=== PATIENT | female | born 1970 | race Caucasian/White ===

== ENCOUNTER 2017-10-10 05:22 | Day surgery (SDC) | payer OTHER ==
[2017-09-27 15:58] VITALS: BMI 42.0
[2017-10-01 09:05] VITALS: Ht 172.7 cm; Wt 123.7 kg
--- NOTE | 2017-10-01 09:17 | PAT Medication Instructions ---
Service Date Oct 01, 2017. Current Home Medication List Albuterol Hfa (Ventolin Hfa), 2 PUFFS INH Q6H Cyclobenzaprine Hcl (Flexeril), 10 MG PO TID PRN for PRN Fexofenadine Hcl (Ximena Allergy), 1 TAB PO QAM Levofloxacin (Levaquin), 500 MG PO QAM Montelukast Sodium (Singulair), 10 MG PO HS Spironolactone (Aldactone), 25 MG PO QPM Medication Instructions For Your Scheduled Surgery - Hold the following medications the morning of surgery: Cyclobenzaprine Hcl (Flexeril), 10 MG PO TID PRN for PRN Fexofenadine Hcl (Ximena Allergy), 1 TAB PO QAM - Take the following medications the morning of surgery with a sip of water: Albuterol Hfa (Ventolin Hfa), 2 PUFFS INH Q6H (if needed) - Take the following medications as scheduled the night before surgery: Albuterol Hfa (Ventolin Hfa), 2 PUFFS INH Q6H (if needed) Cyclobenzaprine Hcl (Flexeril), 10 MG PO TID PRN for PRN (if needed) Montelukast Sodium (Singulair), 10 MG PO HS Spironolactone (Aldactone), 25 MG PO QPM If you have any questions please call us at [phone] or [phone] or [phone]
[2017-10-01 10:58] LABS: BASO % 0.6 %; BASO ABS # 0.07 K/uL (0-0.2); EOS % 4.2 %; EOS ABS # 0.52 K/uL (0-0.5); HEMATOCRIT 42.5 % (37-47); HEMOGLOBIN 14.7 g/dL (12.0-16.0); IG# 0.12 K/uL (0.00-0.02); LYMPH % 35.1 %; LYMPH ABS # 4.32 K/uL (1.2-3.4); MEAN CELL VOLUME 89.5 fL (80-100); MEAN CORPUSCULAR HEMOGLOBIN 30.9 pg (25-34); MEAN CORPUSCULAR HGB CONC 34.6 g/dl (32-36); MEAN PLATELET VOLUME 9.6 fL (7.4-10.4); MONO % 7.6 %; MONO ABS # 0.94 K/uL (0.11-0.59); NEUT % 51.5 %; NEUT ABS # 6.34 K/uL (1.4-6.5); PLATELET COUNT 262 K/uL (130-400); RED CELL DISTRIBUTION WIDTH CV 12.9 % (11.5-14.5); RED CELL DISTRIBUTION WIDTH SD 41.8 fL (36.4-46.3); WHITE BLOOD COUNT 12.31 K/uL (4.8-10.8)
[2017-10-01 11:08] LABS: PTT PATIENT 25.5 SECONDS (21.0-31.0)
[2017-10-01 11:12] LABS: CALCIUM 9.4 mg/dl (8.5-10.1); CREATININE 0.82 mg/dl (0.60-1.20); POTASSIUM 4.1 mmol/L (3.5-5.1)
[2017-10-10] VITALS (8 sets, daily range): BP systolic 88–148; BP diastolic 57–83; PULSE 90–109; TEMP 36.4–37; O2SAT 92–98
[~2017-10-10] VITALS: Ht 172.7 cm; Wt 123.7 kg
[~2017-10-10 05:22] MED LIST: CYCL10TA6 PO; FEXO1TAB49 PO; LEVO1TAB33 PO; MONT1TAB3 PO; SPIR25TA PO; VNTHFA/IN INH
[2017-10-10] MEDS ORDERED: ENOXAPARIN 40 MG/0.4 ML SYR SQ SCH (06:00)
[2017-10-10] MEDS ORDERED: LACTATED RINGER'S 1000ML 1,000 ML IV SCH (06:00)
[2017-10-10] MEDS ORDERED: CEFAZOLIN 3000MG IV PUSH 22.5 ML IV SCH (06:00)
[2017-10-10] MEDS ORDERED: SCOPOLAMINE 1.5 MG TDSY TD ONE (06:20)
[2017-10-10] MEDS ORDERED: LIDOCAINE HCL 2% 2 ML VIAL (20MG/ML) ONE (06:28)
[2017-10-10] MEDS ORDERED: MIDAZOLAM HCL 1 MG/ML 2ML VIAL ONE (06:28)
[2017-10-10] MEDS ORDERED: PROPOFOL IV EMULSION 10 MG/ML 20 ML VIAL ONE (06:28)
[2017-10-10] MEDS ORDERED: FENTANYL CITRATE INJ 50 MCG/1 ML 2 ML VIAL ONE (06:29)
[2017-10-10] MEDS ORDERED: ONDANSETRON INJ 2 MG/ML 2 ML VIAL IV PRN ×2 (06:30→09:45)
[2017-10-10] MEDS ORDERED: EpHEDrine SULFATE INJ 50 MG/ML AMP IV PRN (06:30)
[2017-10-10] MEDS ORDERED: HYDROmorphone INJ 1 MG/ML SYR IV PRN (06:30)
[2017-10-10] MEDS ORDERED: FENTANYL CITRATE INJ 50 MCG/1 ML 2 ML VIAL IV PRN (06:30)
[2017-10-10] MEDS ORDERED: ATROPINE SULFATE 0.1 MG/ML 5ML SYR IV PRN (06:30)
[2017-10-10] MEDS ORDERED: SCOPOLAMINE 1.5 MG TDSY TD SCH (06:30)
[2017-10-10] MEDS ORDERED: ACETAMINOPHEN 1000 MG/100 ML IV IV ONE (06:40)
--- NOTE | 2017-10-10 07:03 | History & Physical Bridge Note ---
H&P Re-Evaluation Bridge Note: I have examined the patient, reviewed the History & Physical and in the interval since the performance of the History & Physical I have noted the following changes of clinical significance: No changes noted
[2017-10-10] MEDS ORDERED: CEFAZOLIN SOD 1 GM VIAL ONE (07:08)
[2017-10-10] MEDS ORDERED: BACITRACIN 50000 UNIT VIAL ONE (07:08)
[2017-10-10] MEDS ORDERED: BUPIVACAINE 0.25% 30 ML VIAL ONE (07:08)
[2017-10-10] MEDS ORDERED: GENTAMICIN SULFATE 40 MG/ML 2 ML VIAL ONE (07:08)
[2017-10-10] MEDS ORDERED: LIDOCAINE/EPINEPHRINE 1% 20 ML VIAL ONE (07:08)
[2017-10-10] MEDS ORDERED: SUCCINYLCHOLINE CHLORIDE 20 MG/ML 10 ML VIAL IV ONE (08:08)
[2017-10-10] MEDS ORDERED: HYDROmorphone INJ 2 MG/ML SYR/VIAL ONE (08:09)
[2017-10-10] MEDS: CHECK SCOPOLAMINE PATCH PLACEMENT SCH ×3 (08:13→23:54)
[2017-10-10] MEDS ORDERED: NEOSTIGMINE METHYLSULFATE 5 MG/5 ML SYR ONE (08:36)
[2017-10-10] MEDS ORDERED: GLYCOPYRROLATE INJ 0.2 MG/ML VIAL ONE (08:36)
[2017-10-10] MEDS: LACTATED RINGER'S 1000ML 1,000 ML IV SCH ×2 (09:36→21:33)
[2017-10-10] MEDS ORDERED: DiphenhydrAMINE HCL 50 MG/ML VIAL IV PRN (09:45)
[2017-10-10] MEDS ORDERED: PROMETHAZINE HCL INJ 12.5 MG in SODIUM CHLORIDE 0.9% 50ML 50 ML IV PRN (09:45)
[2017-10-10] MEDS ORDERED: MoRPHine SULFATE 4 MG/ML 1 ML CARP\\VIAL IV PRN (09:45)
[2017-10-10] MEDS ORDERED: OXAZEPAM 10MG CAP PO PRN (09:45)
[2017-10-10] MEDS ORDERED: CYCLOBENZAPRINE HCL 10 MG TAB PO PRN (09:45)
[2017-10-10] MEDS ORDERED: ACETAMINOPHEN 325 MG TAB PO PRN (09:45)
[2017-10-10] MEDS ORDERED: OXYCODONE/ACETAMINOPHEN 5-325 TAB PO PRN ×2 (09:45)
[2017-10-10] MEDS ORDERED: MoRPHine SULFATE 2 MG/ML CARP IV PRN (09:45)
[2017-10-10] MEDS ORDERED: ROCURONIUM BROMIDE 10 MG/ML 5 ML VIAL ONE (10:25)
[2017-10-10] MEDS ORDERED: ONDANSETRON INJ 2 MG/ML 2 ML VIAL ONE (10:25)
--- NOTE | 2017-10-10 12:08 | Anesthesiology Progress Note ---
Anesthesia Post Op Note Date & Time Oct 10, 2017 at 12:08 Vital Signs Pain Intensity: 0 Vital Signs Past 12 Hours Date Time Temp Pulse Resp B/P (MAP) Pulse Ox O2 Delivery O2 Flow Rate FiO2 10/10/17 05:37 37 94 18 148/76 (100) 96 Room Air Notes Mental Status: alert / awake / arousable, participated in evaluation Pt Amnestic to Procedure: Yes Nausea / Vomiting: adequately controlled Pain: adequately controlled Airway Patency, RR, SpO2: stable & adequate BP & HR: stable & adequate Hydration State: stable & adequate Anesthetic Complications: no major complications apparent
--- NOTE | 2017-10-10 12:42 | Discharge Instructions ---
Discharge Instructions Date of Service Oct 10, 2017. Admission Reason for Admission: N62 Symptomatic Macromastia Discharge Discharge Diagnosis / Problem: macromastia Discharge Goals Goal(s): Decrease discomfort, Improve function Activity Recommendations Activity Limitations: per Instructions/Follow-up section ACTIVITY RECOMMENDATIONS: __Normal activities _x_No bending, lifting or straining __No driving __Driving allowed when you are off pain medications __Walking permitted __You should have help at home for ___ days DRESSINGS: __No dressings required _x_Keep dressings dry/in place until first office visit __Remove dressings ___ and leave dressings off __Apply ice ___ days __Remove dressings and reapply garment __Apply antibiotic ointment (Bacitracin, Neosporin, etc) to wounds 3-4 times/ day for 10 days BATHING: _x_Keep dressings dry __Sponge bathing permitted __Showering permitted _x_No swimming, hot tubs or soaking in a tub MEDICATIONS: Resume previous medications unless instructed otherwise by your surgeon. _x_Do not use aspirin, Motrin, Advil or Ibuprofen as these may promote bleeding. Please use Tylenol. _x_Prescription(s) provided: pain medication was provided at your last office visit OTHER INSTRUCTIONS: __Record drain output 2-3 times per day SPECIAL CARE INSTRUCTIONS: * It is normal to have a mild fever after surgery. If your temperature is higher than 101.5 degrees F, please call the office at [phone]. * Constipation is a typical side effect of pain medication. An over-the- counter stool softener will help relieve this. * Leaking around surgical drains may occur and should not cause concern. Sometimes these drains become clogged. If this happens, remove the bulb and milk the clot out of the tube, then replace the bulb. * Drainage from wounds after liposuction is normal and should be expected. Garments will become soiled. You should protect furniture and bedding. This drainage should mostly subside within 2-3 days. Leave garments in place unless instructed to remove them. * If you have unusual drainage from a wound or are concerned you have an infection or have any questions or concerns, please call the office at [phone]. FOLLOW UP VISIT: If not already scheduled, please call the office, , when you return home after surgery to schedule an appointment to be seen in __4-6_ days. . Current Hospital Diet Patient's current hospital diet: Regular Diet Discharge Diet Recommended Diet: Regular Diet Procedures Procedures Performed: Bilateral Reduction Mammoplasty With Free Nipple Graft Pending Studies Studies pending at discharge: yes List of pending studies: pathology Medical Emergencies . Who to Call and When: Medical Emergencies: If at any time you feel your situation is an emergency, please call 911 immediately. . Non-Emergent Contact Non-Emergency issues call your: Primary Care Provider, Surgeon . "Provider Documentation" section prepared by Sindy Burch. . [place] Drug Monitoring Program Search Results: no issues identified
[2017-10-10] MEDS ORDERED: IV FLUIDS COMPLETED PRN (13:45)
[2017-10-10] MEDS: CEFAZOLIN IV 2,000 MG in SYRINGE 0 ML IV SCH ×2 (13:52→21:33)
[2017-10-10] MEDS: MoRPHine SULFATE 4 MG/ML 1 ML CARP\\VIAL IV PRN ×3 (13:52→21:36)
--- NOTE | 2017-10-10 14:43 | OPERATIVE REPORT ---
DATE OF OPERATION: 10/10/2017 PREOPERATIVE DIAGNOSIS: Symptomatic macromastia. POSTOPERATIVE DIAGNOSIS: Symptomatic macromastia. PROCEDURE: Bilateral reduction mammoplasty with free nipple graft. SURGEON: Dr. Laura Murillo. SENIOR NETWORK SECURITY ARCHITECT: Sindy Burch PA-C. ANESTHESIA: General. COMPLICATIONS: None. INDICATION FOR THE PROCEDURE: The patient is a 47-year-old female who presented to my office with complaints of back, neck and shoulder pain related to large breasts. We discussed options for breast reduction and based on her size and measurements we discussed performing this as a free nipple graft. BRIEF DESCRIPTION OF THE PROCEDURE: Risks, benefits, and alternatives were explained to the patient who agreed and signed consent. She was identified and marked in the preoperative holding area. She was brought to the operating room where she was positioned supine and placed under anesthesia without incident. Surgical site markings were again reassessed. I began with the left breast. 1% lidocaine with epinephrine was used to anesthetize the planned incisions as well as the nipple-areolar complex. A breast tourniquet was applied using a Olga clamp and lap sponge. A 42 mm cookie cutter was used to circumscribe the nipple-areolar complex. The nipple-areolar complex was then removed as a full thickness graft and placed on the back table in a saline soaked sponge. At this point, the tourniquet was released and the inframammary fold incision was made using a 15 blade scalpel. Electrocautery was used to deepen the incision through subcutaneous fat and breast parenchyma down to chest wall. Care was taken to perform this in beveled fashion ligating vessels as needed and achieving hemostasis with electrocautery. Once the breast was mostly undermined superior incision was made to the inferior aspect of the keyhole incision. This was performed using a 15 blade scalpel. Incision was then deepened using electrocautery again full thickness through the breast. A similar incision was made laterally. Centrally, the skin was incised using electrocautery and additional breast parenchyma was resected again in bevelled fashion in order to retain some projection of the breast. Tissue was passed off for weighing. Additional resection was performed until we achieved the desired size and the wound was able to be closed with minimal tension. Total resection weight on the left was 1276 grams. Hemostasis was achieved with electrocautery. 0.25% Marcaine plain was used to anesthetize the incisions as well as pectoralis fascia. A 15 Hungarian Hermann drain was brought out through a separate stab incision laterally toward the axilla. Keyhole was incised using 15 blade scalpel and de-epithelized. The T-junction was brought together using 2-0 Vicryl suture. Closure was first begun lateral to medial using 2-0 Vicryl deep dermal sutures and then medial to lateral using 2-0 Vicryl deep dermal sutures. Vertical limb was closed using a combination of 2-0 Vicryl deep dermal sutures and 3-0 PDS interrupted dermal sutures. Inframammary fold was then closed using 2-0 PDO deep dermal running Quill suture. The vertical limb was then closed using 3-0 Monocryl running subcuticular suture. The nipple-areolar complex was inspected and thinned using a curved iris scissor. It was placed in the recipient bed and sutured into place using 4-0 silk tie over bolster sutures and 4-0 chromic interrupted sutures. Similar procedure was undertaken on the right side. Total resection weight was 1178 grams on the right. There was reasonable symmetry between the breasts at the close of the case. No complications. Dermabond Prineo was applied to the incisions. Dry dressing followed by a surgical bra was placed. Patient was awakened and transferred to the recovery room in satisfactory condition. Sindy Burch PA-C was present and scrubbed throughout the entire procedure and was instrumental in providing retraction, preparing the nipple graft and assisting in simultaneous wound closure. I attest to the content of the Intraoperative Record and any orders documented therein. Any exception s are noted below.
[2017-10-10] MEDS: ALBUTEROL HFA 8 GM INHALER INH SCH ×2 (17:33→23:51)
[2017-10-10] MEDS ORDERED: MONTELUKAST SOD 10 MG TAB PO SCH (21:00)
[2017-10-10] MEDS ORDERED: SPIRONOLACTONE 25 MG TAB PO SCH (21:00)
[2017-10-11 03:05] VITALS: BP 125/86; PULSE 111; TEMP 36.6; O2SAT 96
[2017-10-11] MEDS: ALBUTEROL HFA 8 GM INHALER INH SCH (05:01)
[2017-10-11 07:53] VITALS: BP 112/75; PULSE 112; TEMP 36.9; O2SAT 92
[2017-10-11 07:57] VITALS: O2SAT 92
--- NOTE | 2017-10-11 07:59 | Surgery Progress Note ---
Surgery Progress Note Date of Service Oct 11, 2017. Subjective Post OP Day: 1 + feeling well, + pain controlled, No complaints Objective Vital Signs: Date Time Temp Pulse Resp B/P (MAP) Pulse Ox O2 Delivery O2 Flow Rate FiO2 10/11/17 07:53 36.9 112 24 112/75 (87) 92 Room Air 10/11/17 03:05 36.6 111 16 125/86 (99) 96 Room Air 10/10/17 23:50 Room Air 10/10/17 23:03 36.5 109 20 118/70 (86) 94 Room Air 10/10/17 19:30 36.8 100 18 117/75 (89) 92 Room Air 10/10/17 16:30 Room Air 10/10/17 15:12 36.5 90 18 88/57 (67) 97 Room Air 10/10/17 14:32 36.4 105 16 114/76 (89) 98 2.0 10/10/17 13:15 107 16 124/82 (96) 97 2.0 10/10/17 12:45 96 16 127/83 (98) 96 2.0 10/10/17 12:15 94 Nasal Cannula 2.0 10/10/17 12:15 96 Nasal Cannula 2.0 10/10/17 12:15 36.8 98 16 141/82 (101) 94 Nasal Cannula 2.0 Physical Exam: Hermann drainage (bloody and serousn, 10cc last shift) General Appearance: WD/WN, no apparent distress Incision(s): clean, dry, intact, no erythema Assessment & Plan s/p bilateral breast reduction with free nipple grafts 1. POD #1. Doing well. Drains removed. D/C home
[2017-10-11] MEDS: CHECK SCOPOLAMINE PATCH PLACEMENT SCH (08:00)
[2017-10-11] MEDS ORDERED: ENOXAPARIN 40 MG/0.4 ML SYR SQ SCH (09:00)
[2017-10-11] MEDS ORDERED: FEXOFENADINE HCL 180 MG TAB PO SCH (09:00)
[2017-10-11] MEDS ORDERED: MULTIVITAMIN TAB PO SCH (09:00)
[2017-10-11 09:14] VITALS: BP 112/75; PULSE 112; TEMP 36.9; O2SAT 92
--- NOTE | 2017-10-11 09:41 | Anesthesiology Progress Note ---
Anesthesia Post Op Note Date & Time Oct 11, 2017 at 09:40 Vital Signs Vital Signs Past 12 Hours Date Time Temp Pulse Resp B/P (MAP) Pulse Ox O2 Delivery O2 Flow Rate FiO2 10/11/17 09:14 36.9 112 24 92 Room Air 10/11/17 07:57 92 Room Air 10/11/17 07:53 36.9 112 24 112/75 (87) 92 Room Air 10/11/17 07:30 Room Air 10/11/17 03:05 36.6 111 16 125/86 (99) 96 Room Air 10/10/17 23:50 Room Air 10/10/17 23:03 36.5 109 20 118/70 (86) 94 Room Air Notes Mental Status: alert / awake / arousable, participated in evaluation Pt Amnestic to Procedure: Yes Nausea / Vomiting: adequately controlled Pain: adequately controlled Airway Patency, RR, SpO2: stable & adequate BP & HR: stable & adequate Hydration State: stable & adequate Anesthetic Complications: no major complications apparent
--- NOTE | 2017-10-11 16:27 | Discharge Summary ---
Discharge Summary Date of Service Oct 11, 2017. Admission Date/Reason Oct 10, 2017 at 09:40 N62 Symptomatic Macromastia. Discharge Date/Disposition Oct 11, 2017 Home Diagnosis Principal Diagnosis: macromastia Procedure(s) Performed bilateral breast reduction with free nipple graft Medication Reconciliation Continued Medications: Albuterol Hfa (Ventolin Hfa) 200 Puffs/33599 Mcg Aers 2 PUFFS INH Q6H, #1 INHALER Cyclobenzaprine Hcl (Flexeril) 10 Mg Tab 10 MG PO TID PRN for PRN, #21 TAB Fexofenadine Hcl (Ximena Allergy) 180 Mg Tab 1 TAB PO QAM for 14 Days, #14 TAB 2 Refills Montelukast Sodium (Singulair) 10 Mg Tab 10 MG PO HS, TAB Spironolactone (Aldactone) 25 Mg Tab 25 MG PO QPM, TAB Admission Physical Exam As per Admitting History & Physical. Hospital Course Patient presented to [facility] with history of symptomatic macromastia. She was taken to the OR and underwent bilateral breast reduction with free nipple graft. There were no intraoperative complications. She was taken to recovery and transferred to med/surg for observation. On POD#1 she was tolerating a regular diet. She had good pain control. Her drains were removed. Bolster dressings intact. VSS. She was discharged home in a stable condition. She was instructed to follow-up in the office in one day. Discharge Instructions Please refer to the electronic Patient Visit Report (Discharge Instructions) for additional information.
== END 2017-10-11 11:25 | disposition home or self-care (01) ==
LOC: C.ACU 05:22 → C.MSW 09:40
PROVIDERS: ADMIT Plastic Surgery; ATTEND Plastic Surgery
DX: N62 Hypertrophy of breast (principal); M19.90 Unspecified osteoarthritis, unspecified site; E66.01 Morbid (severe) obesity due to excess calories; Z84.1 Family history of disorders of kidney and ureter; Z83.3 Family history of diabetes mellitus; Z82.49 Family history of ischemic heart disease and other diseases of the circulatory system; Z80.0 Family history of malignant neoplasm of digestive organs; Z87.891 Personal history of nicotine dependence; Z79.899 Other long term (current) drug therapy

== ENCOUNTER 2019-03-21 05:32 | Observation (INO) ==
--- NOTE | 2019-03-06 13:29 | PAT Medication Instructions ---
Medication Instructions Date of Service March 06, 2019 Home Medications albuterol sulfate 1 inh INHALATION QID PRN fexofenadine 60 mg PO QAM PRN metformin 500 mg PO BID montelukast 10 mg PO PM spironolactone 25 mg PO DO NOT take the morning of surgery fexofenadine 60 mg PO QAM PRN metformin 500 mg PO BID spironolactone 25 mg PO Take morning of surgery With a small sip of water, OTHERWISE NOTHING TO EAT OR DRINK AFTER MIDNIGHT: albuterol sulfate 1 inh INHALATION QID PRN (use if needed; please bring with you to hospital day of surgery if possible) Take evening before surgery albuterol sulfate 1 inh INHALATION QID PRN (if needed) fexofenadine 60 mg PO QAM PRN (if needed) metformin 500 mg PO BID montelukast 10 mg PO PM Other Notes If you have any questions please call us at [phone] or [phone] or [phone] or [phone]
--- NOTE | 2019-03-13 14:16 | Anesthesiology Consultation ---
Date of Service March 13, 2019 Assessment & Plan (1) Encounter for pre-operative examination: - Awaiting review of preop testing (labs, EKG, CXR). - Check BSG AM DOS Chart Review Chart Review: Patient seen in Pre Admission Testing Teaching & Discussion Pre-Anesthesia Teaching/Discussion Notes: Instructed NPO after midnight before surgery,except medications with 15 cc of water. Medication instructions provided according to the PAT guidelines. History Surgery Operation Date: 03/21/19 13:50 Proposed Procedures p Tonsillectomy Adenoidectomy, Uvulopalatoplasty, - Maya Blanco MD s Somnoplasty Tongue Base - Maya Blanco MD Height/Weight Height: 5 ft 9 in Weight: 122.2 kg Allergies Allergy/AdvReac Type Severity Reaction Status Date / Time adhesive Allergy Unknown Irritation Verified 03/13/19 14:15 with tape doxycycline AdvReac Unknown dizziness, Verified 03/13/19 14:15 blurred vision Sulfa (Sulfonamide AdvReac Unknown dizziness, Verified 03/13/19 14:15 Antibiotics) blurred vision Medications Home Medications Medication Instructions Recorded Confirmed Last Taken albuterol sulfate 1 inh INHALATION QID PRN 03/06/19 03/06/19 Unknown fexofenadine 60 mg PO QAM PRN 03/06/19 03/06/19 Unknown metformin 500 mg PO BID 03/06/19 03/06/19 Unknown montelukast 10 mg PO PM 03/06/19 03/06/19 Unknown spironolactone 25 mg PO 03/06/19 Unknown Past Medical History Medical History History of bronchitis remote hx/inhaler PRN (no recent inhaler use) Hx of diarrhea controlled with sacral nerve implant (patient states she will bring remote AM DOS/OR made aware) Obesity Pre-diabetes on Metformin Seasonal allergies Sleep apnea CPAP Exercise / Class Metabolic Activity II 4-5 Yardwork/Stairs/Walk up hill Past Surgical History Surgical History History of partial hysterectomy History of surgery SACRAL NERVE IMPLANT Hx of bilateral breast reduction surgery Hx of colonoscopy with polypectomy Past Anesthesia History No Hx of Anesthesia Complications (except PONV x 1 episode) and No Family Hx of Anesthesia Complications History of PONV No Hx of Motion Sickness and History of PONV (x1 episode) Social History Smoking Status: Current every day smoker tobacco type: cigarettes Smoking cigarettes per day: 20 (tobacco use x 30 years)- attempting to decrease prior to upcoming sx Do You Dip or Chew Tobacco: No Hx Alcohol Use: No Hx Substance Use: No Review of Systems Chronic, non-productive cough ("smoker's cough" per patient). Patient denies chest pain, shortness of breath, cough, wheezing, palpitations. Physical Exam Vital Signs VITALS BP 105/71 P 86 TEMP 98.7 SP02 96%RA RESP 18 PHYSICAL Full neck and c-spine range of motion. Full TMJ range of motion. TMD 3.5 finger breaths Mallampati Score 2 (+ large tonsils) Dentition: intact Lungs: clear throughout to auscultation Cardiac: regular rate and rhythm, no murmurs noted Spine: normal Carotid arteries: negative bruit Extremities: no edema Thick neck
[2019-03-13 15:42] LABS: Hematocrit (blood only) 42.9 % (37-47); Hemoglobin 14.5 g/dL (12.0-16.0); Mean Corpuscular Hemoglobin 30.6 pg (25-34); Mean Corpuscular Hgb Conc 33.8 g/dL (32-36); Mean Corpuscular Volume 90.5 fL (80-100); Platelet Count 310 K/uL (130-400); RDW Coefficient of Variation 13.4 % (11.5-14.5); RDW Standard Deviation 44.3 fL (36.4-46.3); Red Blood Count 4.74 M/uL (4.2-5.4); White Blood Count 14.59 K/uL (4.8-10.8)
[2019-03-13 15:50] LABS: BUN Creatinine Ratio 17.8 (10-20); Calcium 8.5 mg/dl (8.5-10.1); Est GFR (African American) 108.3; Est GFR (Non-African American) 93.4; Potassium 3.8 mmol/L (3.5-5.1)
[2019-03-13 17:01] LABS: Basophils # (auto) 0.06 K/uL (0-0.2); Basophils % (auto) 0.4 %; Eosinophils # (auto) 0.58 K/uL (0-0.5); Immature Granulocytes # (auto) 0.06 K/uL (0.00-0.02); Immature Granulocytes % (auto) 0.4 %; Lymphocytes # (auto) 5.55 K/uL (1.2-3.4); Monocytes # (auto) 1.15 K/uL (0.11-0.59); Monocytes % (auto) 7.9 %; Neutrophils # (auto) 7.19 K/uL (1.4-6.5); Neutrophils % (auto) 49.3 %
[2019-03-14 05:40] LABS: Estimated Average Glucose 114 mg/dl; Hemoglobin A1C 5.6 % (4.5-5.6)
--- NOTE | 2019-03-18 10:29 | History & Physical Report ---
Date of Service March 18, 2019 Assessment & Plan (1) Sleep apnea: tonsillectomy, uvulopalatoplasty, somnoplasty of tongue History of Present Illness Chief Complaint: severe sleep apnea Primary Care Provider: Mary Grace Oscar MD 48 yo with severe GUILLERMO on 2015 study, RDI 111 LSAT 71% with poor CPAP compliance, fatigue Allergies Allergy/AdvReac Type Severity Reaction Status Date / Time adhesive Allergy Unknown Irritation Verified 03/13/19 14:15 with tape doxycycline AdvReac Unknown dizziness, Verified 03/13/19 14:15 blurred vision Sulfa (Sulfonamide AdvReac Unknown dizziness, Verified 03/13/19 14:15 Antibiotics) blurred vision Home Medications Home Medications Medication Instructions Recorded Confirmed Type albuterol sulfate 1 inh INHALATION QID PRN 03/06/19 03/06/19 History fexofenadine 60 mg PO QAM PRN 03/06/19 03/06/19 History metformin 500 mg PO BID 03/06/19 03/06/19 History montelukast 10 mg PO PM 03/06/19 03/06/19 History spironolactone 25 mg PO 03/06/19 History Past Med/Surg History Medical History History of bronchitis remote hx/inhaler PRN (no recent inhaler use) Hx of diarrhea controlled with sacral nerve implant (patient states she will bring remote AM DOS/OR made aware) Obesity Pre-diabetes on Metformin Seasonal allergies Sleep apnea CPAP Surgical History History of partial hysterectomy History of surgery SACRAL NERVE IMPLANT Hx of bilateral breast reduction surgery Hx of colonoscopy with polypectomy Social History Preferred Language: Dutch Communication Ability: Effective Beliefs That Will Affect Care: None Current Living Situation: Family Feels Safe at Home: Yes Safety Concerns: Feels Safe At This Time Smoking Status: Current every day smoker Tobacco Type: cigarettes ; Cigarettes Per Day: 20 (tobacco use x 30 years)- attempting to decrease prior to upcoming sx ; Do You Dip or Chew Tobacco: No ; Second Hand Exposure: No ; Hx Alcohol Use: No Hx Substance Use: No Physical Exam Constitutional: + morbidly obese Eyes: PERRL, conjunctivae normal, anicteric sclerae ENMT: Throat: + tonsil abnormality (3+ and tongue 3+) Neck: trachea midline, no thyromegaly Respiratory: normal respiratory effort, lungs clear to auscultation Cardiovascular: RRR, no murmur, no edema
[2019-03-21] MEDS ORDERED: LR 15ML/HR IV SCH (06:00)
[2019-03-21] MEDS ORDERED: CEFAZOLIN 3000MG 65 ML IV SCH (06:00)
[2019-03-21] MEDS ORDERED: DEXAMETHASONE SOD INJ 4 MG/ML VIAL ONE (06:38)
[2019-03-21] MEDS ORDERED: MIDAZOLAM HCL 1 MG/ML 2ML VIAL ONE (06:38)
[2019-03-21] MEDS ORDERED: ONDANSETRON INJ 2 MG/ML 2 ML VIAL ONE (06:38)
[2019-03-21] MEDS ORDERED: fentaNYL citrate 100 MCG/2 ML VIAL ONE ×2 (06:38→08:56)
[2019-03-21] MEDS ORDERED: LIDOCAINE HCL 2% 2 ML VIAL/AMP(20MG/ML) INFIL ONE (06:38)
[2019-03-21] MEDS ORDERED: PROPOFOL IV EMULSION 10 MG/ML 20 ML VIAL IV ONE ×2 (06:38→08:59)
[2019-03-21] MEDS ORDERED: NEOSTIGMINE METHYLSULFATE 5 MG/5 ML SYR ONE (06:38)
[2019-03-21] MEDS ORDERED: GLYCOPYRROLATE 0.2 MG/ML VIAL ONE (06:38)
--- NOTE | 2019-03-21 06:56 | History & Physical Bridge Note ---
Date of Service March 21, 2019 History & Physical Bridge Note I have examined the patient, reviewed the History & Physical and in the interval since the performance of the History & Physical I have noted the following changes of clinical significance: no changes noted
[2019-03-21] MEDS ORDERED: BUPIVACAINE/EPINEPHRINE 0.5% MPF 1:200,000 10 ML VIAL ONE (07:11)
[2019-03-21] MEDS ORDERED: ATROPINE SULFATE 0.1 MG/ML 10ML SYR IV PRN (07:41)
[2019-03-21] MEDS ORDERED: ONDANSETRON INJ 2 MG/ML 2 ML VIAL IV PRN ×2 (07:41→08:27)
[2019-03-21] MEDS ORDERED: PROMETHAZINE HCL 12.5 MG in SODIUM CHLORIDE 0.9% 50 ML IV PRN (07:41)
[2019-03-21] MEDS ORDERED: fentaNYL citrate 100 MCG/2 ML VIAL IV PRN (07:41)
[2019-03-21] MEDS ORDERED: LABETALOL HCL IV 5 MG/ML 20ML IV PRN (07:41)
[2019-03-21] MEDS ORDERED: NALOXONE HCL 0.4 MG/1 ML VIAL/CARP IV PRN (07:41)
[2019-03-21] MEDS ORDERED: FLUMAZENIL 0.1 MG/1 ML 10 ML VIAL IV PRN (07:41)
[2019-03-21] MEDS ORDERED: ePHEDrine sulfate 50 MG/ML AMP IV PRN (07:41)
[2019-03-21] MEDS ORDERED: ROCURONIUM BROMIDE 10 MG/ML 5 ML VIAL ONE (07:59)
--- NOTE | 2019-03-21 08:16 | Operative Report ---
Post Operative Report Pre & Post Diagnosis Operation Date: 03/21/19 07:15 Pre-Op Diagnosis: Sleep Apnea Post-Op Diagnosis: Sleep Apnea I identified the patient and participated in the time-out.: Yes Procedure Operation Date: 03/21/19 07:15 Actual Procedures p Bilateral Adenotonsillectomy, Uvulopalatoplasty;(Bilateral) - Maya Blanco MD s Somnoplasty Tongue Base(Bilateral) - Maya Blanco MD Surgeon Maya Blanco MD Engraver Copperplate none Estimated Blood Loss 25 Findings Consistent with Post-Op Diagnosis Specimens Tonsils and portion of uvula Anesthesia Type General Complications none Disposition Accompanied Patient To Recovery: Yes Disposition: Recovery Room Indications Severe sleep apnea RDI 111 lowest oxygen saturation 71% Description of Procedure She was brought to the operating room, properly identified, prepped and draped in the usual sterile manner after general endotracheal anesthesia. Radiofrequency volume reduction of the tongue base was performed using the Somnoplasty probe with the setting at 85 C and at 600 J in the rapid lesion mode. 7 double-pronged lesions were placed across the base of tongue. The mouthgag was placed in the peritonsillar area were injected with 0.5% Marcaine with 1-200,000 strength epinephrine. Soft palate was retracted using the red Bell catheter and the tonsillectomies and adenoidectomy was performed using the Coblation device, bleeding out the adenoid tissue and also removing the tonsils from the tonsillar fossa. Hemostasis was controlled using the Coblation device. Uvulopalatoplasty was performed using the #12 and the Metzenbaum scissors excising the anterior half of the uvula and a portion of the soft palate. A V-shaped cut was placed in the palatal glasses fold and a flap was cut into the palatal pharyngeus fold and then rotating the flap laterally into the V cut. All mucosal edges were approximated with 2-0 chromic sutures and the uvula was sewn upon itself. Pharynx was irrigated clean with saline. She tolerated procedure well and was taken recovery area in satisfactory condition. I attest to the content of the Intraoperative Record and any orders documented therein. Any exceptions are noted below.
[2019-03-21] MEDS ORDERED: OXYCODONE/ACETAMINOPHEN 5mg/325mg TAB PO PRN (08:27)
--- NOTE | 2019-03-21 09:15 | Anesthesiology Progress Note ---
Date of Service March 21, 2019 Anesthesia Post Procedure Vital Signs Vital Signs: Temp Pulse Pulse Resp BP Pulse Ox 03/21/19 09:05 36.2 C L 59 L 16 124/71 97 03/21/19 08:55 76 16 138/77 95 03/21/19 08:45 72 22 148/80 H 95 03/21/19 08:35 73 21 133/79 98 03/21/19 08:25 36.3 C L 88 16 156/109 H 98 03/21/19 05:53 36.7 C 79 20 132/82 96 Pain Intensity Head: Pain Intensity: 2 Transfer of Care Handoff Completed per policy Notes Mental Status: alert / awake / arousable Patient Amnestic to Procedure: Yes Nausea / Vomiting: adequately controlled Pain: adequately controlled Airway Patency, RR, SpO2: stable & adequate BP & HR: stable & adequate Hydration State: stable & adequate Anesthetic Complications: no major complications apparent
[2019-03-21] MEDS ORDERED: ALBUTEROL HFA 8 GM INHALER INH PRN (09:57)
[2019-03-21] MEDS: SPIRONOLACTONE 25 MG TAB PO SCH (11:56)
[2019-03-21] MEDS: LACTATED RINGER'S 1,000 ML IV SCH ×2 (11:56→22:18)
[2019-03-21] MEDS ORDERED: HYDROCODONE/ACETAMINOPHEN 7.5/325MG TAB PO PRN (15:31)
[2019-03-21] MEDS: ACETAMINOPHEN/HYDROCODONE ELIX 15 ML/CUP UDP PO PRN ×2 (15:52→21:43)
[2019-03-21] MEDS ORDERED: MONTELUKAST SODIUM 10 MG TABLET PO SCH (21:00)
[2019-03-21] MEDS ORDERED: Nursing to Pharmacy Communication ONE (22:19)
[2019-03-22] MEDS: ACETAMINOPHEN/HYDROCODONE ELIX 15 ML/CUP UDP PO PRN (04:25)
[2019-03-22] MEDS: SPIRONOLACTONE 25 MG TAB PO SCH (08:09)
--- NOTE | 2019-03-22 08:36 | Discharge Summary ---
Date of Service March 22, 2019 Admission HPI Per Admitting Provider 48 yo with severe GUILLERMO on 2015 study, RDI 111 LSAT 71% with poor CPAP compliance, fatigue Admission Exam (Per Admitting) Constitutional + morbidly obese Eyes PERRL, conjunctivae normal, anicteric sclerae ENMT Throat: + tonsil abnormality (3+ and tongue 3+) Neck trachea midline, no thyromegaly Respiratory normal respiratory effort, lungs clear to auscultation Cardiovascular RRR, no murmur, no edema Discharge Data Procedures Performed Operation Date: 03/21/19 07:15 Actual Procedures p Bilateral Adenotonsillectomy, Uvulopalatoplasty;(Bilateral) - Maya Blanco MD s Somnoplasty Tongue Base(Bilateral) - Maya Blanco MD Hospital Course (1) Sleep apnea: She underwent tonsillectomy with uvulopalatopharyngoplasty and radiofrequency volume reduction of the tongue base without complications Discharge Instructions See discharge instructions
[2019-03-22] MEDS ORDERED: METFORMIN HCL 500 MG TAB PO SCH (09:00)
== END 2019-03-22 10:16 | disposition home or self-care (01) ==
LOC: 3W 05:32 → ASU 05:32

== ENCOUNTER 2021-03-15 11:22 | Inpatient (IN) ==
--- NOTE | 2021-03-10 14:17 | Anesthesiology Consultation ---
Date of Service March 10, 2021 Assessment & Plan (1) Encounter for pre-operative examination: Chart Review Chart Review: Acceptable Risk for Surgery and Patient NOT seen in Pre Admission Testing - Check BSG AM DOS Per Medical Necessity Letter 03/09/21= Patient presents to our office with complaints of lower back pain with pain that goes into both buttocks with pain numbness and weakness in both of her legs. She has failed multiple times of conservative measures including physical therapy, prescription and [id number] medications, and several injections through pain management. Her pain is preventing her from walking a distance and she is starting to lose more strength in her legs. Due to her progression of symptoms and lack of response to conservative measures we recommend a lumbar decompression and fusion from L4 to sacrum. Failure to proceed surgically may result in further neurologic decline and irreversible nerve damage. (Dr. Zepeda aware and approves case to proceed as scheduled pending bed/staff availability at [facility]) Per nursing assessment 03/10/2021, patient denies any recent travel other than local. No known Covid infection in the past 90 days. Patient is fully vaccinated for Covid. No known Covid positive exposures or Covid related symptoms. Preop Covid testing scheduled 03/10/21= negative. Covid test will be five days old by DOS- patient will be getting Ferreira test DOS due to inpatient stay. -Hx glidescope intubation: Tonsillectomy Adenoidectomy, Uvulopalatoplasty, Somnoplasty Tongue Base (03/21/19): Grade view 2, Glidescope #3, ETT 7.0 at [facility] History Surgery Operation Date: 03/15/21 11:05 Proposed Procedures p L4-S1 Decompression and Fusion, Spinal Cord Monitoring - Alejandro Rice DO Height/Weight Height: 5 ft 8 in Weight: 122.47 kg Allergies Allergy/AdvReac Type Severity Reaction Status Date / Time adhesive Allergy Mild Irritation Verified 03/10/21 13:40 with tape doxycycline AdvReac Intermediate dizziness, Verified 03/10/21 13:40 blurred vision Sulfa (Sulfonamide AdvReac Intermediate dizziness, Verified 03/10/21 13:40 Antibiotics) blurred vision Medications Home Medications Medication Instructions Recorded Confirmed Last Taken montelukast 10 mg tablet 10 mg PO HS PRN 08/18/20 03/10/21 Unknown (Singulair) Auto Titrating CPAP #1 ea 12/23/20 Unknown Past Medical History Medical History Arthritis Back Hx of diarrhea Controlled with sacral nerve implant- Medtronic (patient states she will bring remote AM DOS per nursing assessment/OR made aware) Morbid obesity BMI 41 Pre-diabetes Previously taking Metformin Seasonal allergies Sleep apnea CPAP (not using) Past Family History Family History Grandfather Heart disease Stroke Uncle Colon cancer Cancer Grandmother Heart disease Father Asthma Mother Family history of diabetes mellitus Other No family history of adverse response to anesthesia No family history of allergies No family history of bleeding disorder Denies family history of Hearing loss Hypertension Past Surgical History Surgical History History of partial hysterectomy History of salpingectomy 2015 History of surgery Sacral nerve implant History of tonsillectomy and adenoidectomy Tonsillectomy Adenoidectomy, Uvulopalatoplasty, Somnoplasty Tongue Base (03/21/19): Grade view 2, Glidescope #3, ETT 7.0 at [facility] Hx of bilateral breast reduction surgery Hx of colonoscopy with polypectomy Social History Smoking Status: Current every day smoker tobacco type: cigarettes Smoking cigarettes per day: 20 a day Do You Dip or Chew Tobacco: No Hx Alcohol Use: No Hx Substance Use: No substance use type: does not use Lab Results Anesthesia Preop Results Results Anesthesia Widget: WBC 13.03 K/uL (4.8-10.8) H 03/10/21 Hgb 14.3 g/dL (12.0-16.0) 03/10/21 Hct 43.5 % (37-47) 03/10/21 Plt 312 K/uL (130-400) 03/10/21 Na 141 mmol/L (136-145) 03/10/21 K 3.7 mmol/L (3.5-5.1) 03/10/21 Cl 110 mmol/L (98-107) H 03/10/21 CO2 27 mmol/L (21-32) 03/10/21 BUN 11 mg/dl (7-18) 03/10/21 Creat 0.68 mg/dl (0.6-1.2) 03/10/21 Glucose Level 109 mg/dl (70-99) H 03/10/21 PT 10.2 Seconds (9.0-12.0) 03/10/21 PTT 26.2 Seconds (21.0-31.0) 03/10/21 INR 1.0 (0.9-1.1) 03/10/21 Urine Color Dark Yellow 03/10/21 Urine Appearance Clear (Clear) 03/10/21 Urine pH 5.0 (4.5-7.5) 03/10/21 Urine Specific [place] 1.025 (1.000-1.030) 03/10/21 Urine Protein Negative (Negative) 03/10/21 Urine Glucose (UA) Negative (Negative) 03/10/21 Urine Ketones Trace (Negative) H 03/10/21 Urine Blood Negative (Negative) 03/10/21 Urine Nitrite Negative (Negative) 03/10/21 Urine Bilirubin Negative (Negative) 03/10/21 Urine Urobilinogen Negative (Negative) 03/10/21 Urine Leukocyte Esterase Trace (Negative) H 03/10/21 Urine WBC (Auto) 10-30 /hpf (0-5) H 03/10/21 Urine RBC (Auto) 0-4 /hpf (0-4) 03/10/21 Urine Hyaline Casts (Auto) 1-5 /lpf (0-5) 03/10/21 Urine Epithelial Cells (Auto) >30 /lpf (0-5) H 03/10/21 Urine Bacteria (Auto) 1+ (Negative) H 03/10/21 Lab Comments: Surgeon's office informed of mild leukocytosis and positive urine- will leave to Dr. Rice's discretion on how to proceed Testing Electrocardiogram Date: 11/12/20 Normal sinus rhythm at 93 bpm. Normal EKG per cardio Chest X-Ray Date: 11/12/20 Findings: + NAD
[~2021-03-15 11:22] MED LIST changes: +ACETAMINOPHEN 500 MG TAB PO SCH; -CYCL10TA6 PO; +CeleBREX 200 MG CAP PO SCH; -FEXO1TAB49 PO; +GABAPENTIN 900 MG DOSE PO SCH; -LEVO1TAB33 PO; +LR 15ML/HR IV SCH; -MONT1TAB3 PO; -SPIR25TA PO; -VNTHFA/IN INH
[2021-03-15] MEDS ORDERED: fentaNYL citrate 100 MCG/2 ML VIAL IV PRN (11:33)
[2021-03-15] MEDS ORDERED: PHENYLEPHRINE 100MCG/ML 5ML SYR IV PRN (11:33)
[2021-03-15] MEDS ORDERED: LABETALOL HCL IV 5 MG/ML 20ML IV PRN (11:33)
[2021-03-15] MEDS ORDERED: ePHEDrine sulfate 50 MG/ML AMP IV PRN (11:33)
[2021-03-15] MEDS ORDERED: MEPERIDINE HCL 25 MG/ML CARP/VIAL IV PRN (11:33)
[2021-03-15] MEDS ORDERED: ONDANSETRON INJ 2 MG/ML 2 ML VIAL IV PRN ×2 (11:33→18:09)
[2021-03-15] MEDS ORDERED: ATROPINE SULFATE 0.1 MG/ML 10ML SYR IV PRN (11:33)
[2021-03-15] MEDS ORDERED: HYDROmorphone INJ 1 MG/ML SYRINGE IV PRN ×2 (11:33→18:09)
[2021-03-15] MEDS ORDERED: MIDAZOLAM HCL 1 MG/ML 2ML VIAL ONE (11:34)
[2021-03-15] MEDS ORDERED: fentaNYL citrate 100 MCG/2 ML VIAL ONE (11:35)
--- NOTE | 2021-03-15 13:04 | History & Physical Bridge Note ---
Date of Service March 15, 2021 History & Physical Bridge Note I have examined the patient, reviewed the History & Physical and in the interval since the performance of the History & Physical I have noted the following changes of clinical significance: no changes noted
--- NOTE | 2021-03-15 13:05 | History & Physical Report ---
Date of Service March 15, 2021 Assessment & Plan (1) Neurogenic claudication due to lumbar spinal stenosis: Plan: L4-S1 decompression fusion History of Present Illness Chief Complaint: Back and bilateral leg pain Primary Care Provider: Mary Grace Oscar MD This is a 50-year-old female presents with bulge diagnosis after failing course of nonoperative care she is here for surgical invention. Allergies Allergy/AdvReac Type Severity Reaction Status Date / Time adhesive Allergy Mild Irritation Verified 03/15/21 11:39 with tape doxycycline AdvReac Intermediate dizziness, Verified 03/15/21 11:39 blurred vision Sulfa (Sulfonamide AdvReac Intermediate dizziness, Verified 03/15/21 11:39 Antibiotics) blurred vision Home Medications Medication Instructions Recorded Confirmed Type montelukast 10 mg tablet 10 mg PO HS PRN 08/18/20 03/15/21 History (Keily) Auto Titrating CPAP #1 ea 12/23/20 Rx albuterol 90 mcg/actuation aerosol mcg INHALATION DIRECTED 03/15/21 History inhaler albuterol sulfate 2.5 mg INHALATION Q4H PRN 03/15/21 03/15/21 History Past Med/Surg History Medical History Arthritis Back Hx of diarrhea Controlled with sacral nerve implant- [employer]tr[employer] (patient states she will bring remote AM DOS per nursing assessment/OR made aware) Morbid obesity BMI 41 Pre-diabetes Previously taking Metformin Seasonal allergies Sleep apnea CPAP (not using) Surgical History History of partial hysterectomy History of salpingectomy 2014 History of surgery Sacral nerve implant History of tonsillectomy and adenoidectomy Tonsillectomy Adenoidectomy, Uvulopalatoplasty, Somnoplasty Tongue Base (03/21/19): Grade view 2, Glidescope #3, ETT 7.0 at [facility] Hx of bilateral breast reduction surgery Hx of colonoscopy with polypectomy Family History Grandfather Heart disease Stroke Uncle Colon cancer Cancer Grandmother Heart disease Father Asthma Mother Family history of diabetes mellitus Other No family history of adverse response to anesthesia No family history of allergies No family history of bleeding disorder Denies family history of Hearing loss Hypertension Social History (Updated 08/18/20 @ 12:43 by Siria Orlando RN) Smoking Status: Current every day smoker Tobacco Type: Cigarettes Age Started Using Tobacco: 16; packs per day: 1; Cigarettes Per Day: 20 a day; Second Hand Exposure: No; Do You Dip or Chew Tobacco: No; Tobacco Cessation Education Requested by Patient: No Hx Alcohol Use: No Hx Substance Use: No Preferred Language: Indonesian Communication Ability: Effective Director Advanced Required: No Beliefs That Will Affect Care: None marital status: Single Current Living Situation: Significant Other current occupational status: 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
[2021-03-15] MEDS ORDERED: ALBUT/IPRATROP 3MG/0.5MG NEB 3 ML VIAL ONE (13:16)
[2021-03-15] MEDS ORDERED: ALBUT/IPRATROP 3MG/0.5MG NEB 3 ML VIAL NEB STA ×2 (13:21→16:32)
[2021-03-15] MEDS ORDERED: EPINEPHrine INJ 1 MG/ML AMP ONE (13:27)
[2021-03-15] MEDS ORDERED: HYDROmorphone INJ 2 MG/ML SYR/VIAL ONE (14:17)
[2021-03-15] MEDS ORDERED: LIDOCAINE 2% 2 ML VIAL/AMP(20MG/ML) INFIL ONE (14:22)
[2021-03-15] MEDS ORDERED: ONDANSETRON INJ 2 MG/ML 2 ML VIAL ONE (14:22)
[2021-03-15] MEDS ORDERED: DEXAMETHASONE SOD INJ 4 MG/ML VIAL ONE (14:22)
[2021-03-15] MEDS ORDERED: PHENYLEPHRINE 100MCG/ML 5ML SYR ONE (14:22)
[2021-03-15] MEDS ORDERED: ePHEDrine sulfate 50 MG/ML SYR ONE (14:22)
[2021-03-15] MEDS ORDERED: PROPOFOL IV EMULSION 10 MG/ML 20 ML VIAL IV ONE (14:22)
[2021-03-15] MEDS ORDERED: SUCCINYLCHOLINE CHLORIDE 20 MG/ML 10 ML VIAL IV ONE (14:22)
[2021-03-15] MEDS ORDERED: ROCURONIUM BROMIDE 10 MG/ML 5 ML VIAL IV ONE (14:22)
[2021-03-15] MEDS ORDERED: NEOSTIGMINE METHYLSULFATE 1 MG/ML 10ML VIAL ONE (14:22)
[2021-03-15] MEDS ORDERED: LARYING-O-JET KIT (LTA) ONE (14:22)
[2021-03-15] MEDS ORDERED: GLYCOPYRROLATE 0.2 MG/ML VIAL ONE (14:22)
[2021-03-15] MEDS ORDERED: BUPIVACAINE 0.5 % 5 MG/1 ML MPF 30ML VIAL INFIL ONE (14:35)
[2021-03-15] MEDS ORDERED: FLOSEAL HEMOSTATIC MATRIX 10ML TOP ONE (14:35)
--- NOTE | 2021-03-15 15:59 | Operative Report ---
Post Operative Report Pre & Post Diagnosis Operation Date: 03/15/21 12:55 Pre-Op Diagnosis: Spondylolisthesis, Lumbar Region Post-Op Diagnosis: Spondylolisthesis, Lumbar Region I identified the patient and participated in the time-out.: Yes Procedure Operation Date: 03/15/21 12:55 Actual Procedures #1 lumbar decompression bilaterally facetectomies and foraminotomies L3-L4 L4-5 #2 posterior spinal fusion L4-L5 #3 placed posterior instrumentation L4 5.4 interbody fusion L4-5. #5 placement of titanium cage 13 x 22 mm at L4-5 per #6 placement of locally harvested morselized autograft in the posterior gutters per #7 placement infuse collagen sponge, master graft in the posterior lateral gutters and I factor interbody space. Surgeon Alejandro Rice, DO Briefcase Sewer Vishal Alvarenga Estimated Blood Loss 150 Findings See Below The patient is 5 foot 8 inches tall weighing 133 kg with a BMI in excess of 44. Patient's body habitus did contribute to significant technical difficulties required deepest retractors longus instruments in order to perform her procedure. This had at least 50% increased operative time. Specimens None Indications This is a 50-year-old female presents with above-mentioned diagnosis after failing course of nonoperative care is here for the above-mentioned procedure. Description of Procedure Patient met with identified informed consent obtained. Patient was then taken to the operative suite underwent ablation placed in a prone position the [place] table top Jony frame. All bony prominences well-padded eyes inspected to ensure no external pressure placed upon the. This point lumbar spine was prepped and draped in a sterile fashion. Sharp dissection with the assistance of Bovie cautery was performed down to and exposing the lamina and transverse processes of L4-L5 and sacral ala bilaterally. Then explored the facets at L5- S1 noting autofusion. I then performed a complete decompression of L for lamina partial decompression of L3 including bilateral medial facetectomies foraminotomies addressing severe lateral recess and foraminal stenosis. Pedicle screws then placed in L for L5 bilaterally with assistance of fluoroscopy and appropriate sized adriane placed. Bilateral transforaminal portion right complete discectomy was performed endplates curetted to subcortically bone and a 12 x 22 mm titanium cage filled I factor tapped in position. The rods then compressed locked into final position bilaterally. The transverse processes of L for L5 burred to subcortical bleeding bone. Infuse collagen sponge master graft local autograft was placed in the posterior gutters. 15 round CHRISTINE drain inserted. The incision was then closed with 1 Vicryl in the fascia 2-0 Vicryl subcutaneously and 4 Monocryl for final skin closure. Steri-Strip sterile dressings placed. Patient waken taken PACU stable condition. Please note spinal cord monitoring was utilized at the procedure no changes noted. Lastly Vishal Alvarenga was present at the entire surgeon while the patient positioning complex portions of the surgery and fascial closure. I attest to the content of the Intraoperative Record and any orders documented therein. Any exceptions are noted below.
--- NOTE | 2021-03-15 16:55 | Fluoroscopy Report ---
FL lumbar spine 2-3V CLINICAL HISTORY: Posterior decompression and fusion. COMPARISON STUDY: CT lumbar myelogram April 30, 2020. FLUOROSCOPY TIME: 26 seconds. FLUOROSCOPIC IMAGES: 2 FINDINGS: Fluoroscopy was provided during L4-L5 discectomy with interbody spacer placement. Posterior decompression is noted. There are bilateral pedicle screws at the L4 and L5 levels. IMPRESSION: Fluoroscopy provided during L4-L5 discectomy, posterior decompression and bilateral pedi joao screw fusion. ACT 112: Negative or not required by law. Electronically signed by: Inocencio Vasquez M.D. 03/15/2021 4:53 PM
--- NOTE | 2021-03-15 17:21 | Anesthesiology Progress Note ---
Date of Service March 15, 2021 Anesthesia Post Procedure Vital Signs Vital Signs: Temp Pulse Pulse Resp BP Pulse Ox 03/15/21 17:10 37.3 C 73 13 124/83 93 03/15/21 17:00 37.3 C 75 73 12 129/74 98 03/15/21 16:50 80 15 137/92 97 03/15/21 16:43 88 20 90 03/15/21 16:40 97 H 14 135/82 94 03/15/21 16:30 102 H 15 110/94 84 L 03/15/21 16:22 37.7 C H 82 14 131/73 94 03/15/21 11:45 37 C 106 H 20 138/82 95 Transfer of Care Handoff Completed per policy Notes Mental Status: alert / awake / arousable and participated in evaluation Patient Amnestic to Procedure: Yes Nausea / Vomiting: adequately controlled Pain: adequately controlled Airway Patency, RR, SpO2: stable & adequate (Pt with known GUILLERMO had upper airway obstruction in PACU. Placed on CPAP with relief. ) BP & HR: stable & adequate Hydration State: stable & adequate Anesthetic Complications: no major complications apparent Notes: Pt should stay on CPAP overnight. Benefit explained to pt who expressed understanding and agreed to wear device.
[2021-03-15] MEDS ORDERED: LORazepam 0.5 MG TAB PO PRN (18:09)
[2021-03-15] MEDS ORDERED: FAMOTIDINE 20 MG TAB PO PRN (18:09)
[2021-03-15] MEDS ORDERED: SOD PHOSPHATE/SOD BIPHOSPHATE ENEMA 132 ML BTL PR PRN (18:09)
[2021-03-15] MEDS ORDERED: MAGNESIUM HYDROXIDE SUSP 30 ML UDC PO PRN (18:09)
[2021-03-15] MEDS ORDERED: METOCLOPRAMIDE HCL INJ 5 MG/ML 2 ML VIAL IV PRN (18:09)
[2021-03-15] MEDS ORDERED: ALBUTEROL 0.083% NEBU SOLN 3 ML VIAL INH PRN (18:09)
[2021-03-15] MEDS ORDERED: ONDANSETRON 4 MG OD TAB PO PRN (18:09)
[2021-03-15] MEDS ORDERED: diphenhydrAMINE Capsule 25 MG CAP PO PRN (18:09)
[2021-03-15] MEDS ORDERED: LORazepam 0.5 MG/1 ML VIAL IV PRN (18:09)
[2021-03-15] MEDS ORDERED: DO NOT ADMINISTER PNEUMOCOCCAL VACCINE PRN (18:09)
[2021-03-15] MEDS ORDERED: ALUMINUM/MAGNESIUM SUSP 30 ML UDC PO PRN (18:09)
[2021-03-15] MEDS ORDERED: DO NOT ADMINISTER FLU VACCINE PRN (18:09)
[2021-03-15] MEDS ORDERED: NALOXONE HCL 0.4 MG/1 ML VIAL/CARP IV PRN (18:09)
[2021-03-15] MEDS ORDERED: PROMETHAZINE HCL 12.5 MG in SODIUM CHLORIDE 0.9% 50 ML IV PRN (18:09)
[2021-03-15] MEDS ORDERED: HYDROmorphone INJ 0.5 MG/0.5 ML SYR IV PRN (18:09)
[2021-03-15] MEDS ORDERED: bisacodyL 10 MG SUPP PR PRN (18:09)
[2021-03-15] MEDS ORDERED: hydrOXYzine HCl 25 MG TAB PO PRN (18:09)
[2021-03-15] MEDS ORDERED: traMADol HCL 50 MG TABLET PO PRN (18:09)
--- NOTE | 2021-03-15 18:20 | Hospitalist Consultation ---
Date of Consultation March 15, 2021 Assessment & Plan (1) Neurogenic claudication due to lumbar spinal stenosis: (2) Post-operative state: s/p L4-S1 decompression and fusion by Dr. Rice EBL 150cc POD #0 -pain/wound management per Ortho -VTE prophylaxis per Ortho, encourage early ambulation -incentive spirometry encouraged -CBC, BMP in am -PT/OT and activity restrictions per Ortho (3) Postoperative hypoxia: likely related to recent anesthesia and/or recent dilaudid. Cont oxygen supplementation and wean as tolerated. Cont CPAP overnight and nightly while she is admitted. (4) Sleep apnea: as above. (5) Morbid obesity: lifestyle modifications recommended to increase lean muscle mass and reduce overall percent body fat. (6) Pre-diabetes: screening A1C in am. (7) Smoking: consistently smokers 1ppd. Uses singulair and albuterol PRN. Encouraged to quit. Has adhesive/tape allergy so added nicotine gum PRN (8) DVT prophylaxis: SCDs Full Code Dispo- per orthopedics once cleared. Daisy Jeff DO [facility] Hospitalist History of Present Illness Reason for Consultation: post op med mgmt Attending Physician: Alejandro Rice DO History of Present Illness 50 yo F presented for operative management of chronic back pain which has failed conservative management. She underwent an L4 S1 decompression and fusion by Dr. Rice earlier today. She is a morbidly obese female and as a result of her body habitus the intraoperative time was 50% longer than normal. She has a significant incision per the operative notes and was given Dilaudid around 4:30 PM this afternoon. She has a history of obstructive sleep apnea but has been noncompliant with CPAP since a recall on her machine without replacement. She also mentions some difficulties with pressure in her ears when using her nasal CPAP at home. She currently denies any pain but feels her soreness is starting to increase postoperatively. She denies any issues with hunger or shortness of breath. When she was taken off CPAP to interview, her bedside pulse oximeter dropped to 88%. She did not exhibit any conversational dyspnea during this time and responded very nicely to 2 to 3 L oxygen supplementation via Oxymask. She has a history of chronic severe diarrhea with placement of a sacral nerve stimulator. She has a history of prediabetes and was previously taking Metformin. She stopped the Metformin for GI issues and has not reassessed her diabetic status. A1c was ordered for a.m. She otherwise feels well and review of systems was negative. Allergies Allergy/AdvReac Type Severity Reaction Status Date / Time adhesive Allergy Mild Irritation Verified 03/15/21 11:39 with tape doxycycline AdvReac Intermediate dizziness, Verified 03/15/21 11:39 blurred vision Sulfa (Sulfonamide AdvReac Intermediate dizziness, Verified 03/15/21 11:39 Antibiotics) blurred vision Home Medications Medication Instructions Recorded Confirmed Type montelukast 10 mg tablet 10 mg PO HS PRN 08/18/20 03/15/21 History (Singulair) Auto Titrating CPAP #1 ea 12/23/20 Rx albuterol 90 mcg/actuation aerosol mcg INHALATION DIRECTED 03/15/21 History inhaler albuterol sulfate 2.5 mg INHALATION Q4H PRN 03/15/21 03/15/21 History Patient History Medical History (Updated 03/15/21 @ 19:38 by Daisy Jeff DO) Arthritis Back Hx of diarrhea Controlled with sacral nerve implant- [employer] (patient states she will bring remote AM DOS per nursing assessment/OR made aware) Morbid obesity BMI 41 Pre-diabetes Previously taking Metformin Seasonal allergies Sleep apnea CPAP (not using) Surgical History (Updated 03/15/21 @ 19:38 by Daisy Jeff DO) History of partial hysterectomy History of salpingectomy 2014 History of surgery Sacral nerve implant History of tonsillectomy and adenoidectomy Tonsillectomy Adenoidectomy, Uvulopalatoplasty, Somnoplasty Tongue Base (03/21/19): Grade view 2, Glidescope #3, ETT 7.0 at [facility] Hx of bilateral breast reduction surgery Hx of colonoscopy with polypectomy Family History Grandfather Heart disease Stroke Uncle Colon cancer Cancer Grandmother Heart disease Father Asthma Mother Family history of diabetes mellitus Other No family history of adverse response to anesthesia No family history of allergies No family history of bleeding disorder Denies family history of Hearing loss Hypertension Social History Smoking Status: Current every day smoker Tobacco Type: Cigarettes Age Started Using Tobacco: 16; packs per day: 1; Cigarettes Per Day: 20 a day; Second Hand Exposure: No; Do You Dip or Chew Tobacco: No; Tobacco Cessation Education Requested by Patient: No Hx Alcohol Use: No Hx Substance Use: No Preferred Language: Kittitian Communication Ability: Effective Oil Speculator Required: No Beliefs That Will Affect Care: None marital status: Single Current Living Situation: Significant Other current occupational status: 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 Physical Exam Physical Exam: CONSTITUTIONAL: obese, vitals as above, generally well- appearing, NAD EYES: normal conjunctivae, no scleral icterus ENT: external ear and nose normal, MMM NECK: trachea midline RESPIRATORY: clear to auscultation bilaterally, no crackles, rales or wheezes, normal respiratory effort CARDIOVASCULAR: regular rate and rhythm, S1 and 2 heard without murmurs, gallops or rubs, no JVD, no peripheral edema GASTROINTESTINAL: soft, nontender, ND, no guarding MUSCULOSKELETAL: strength 5/5 throughout, head is normocephalic and atraumatic SKIN: warm and dry NEUROLOGIC: CN 2-12 grossly intact, no sensory deficit, normal cognition, normal speech, no tremor. No gross focal deficits. PSYCHIATRIC: alert cooperative and oriented to person, place and time. Results & Data Results & Data ([facility]) Vital Signs (Past 12 Hours) Vital Signs Temp Pulse Pulse Resp BP Pulse Ox 03/15/21 17:55 36.7 C 75 16 125/77 98 03/15/21 17:30 37.3 C 78 16 103/80 97 03/15/21 17:20 37.3 C 73 8 L 110/76 95 03/15/21 17:10 37.3 C 73 13 124/83 93 03/15/21 17:00 37.3 C 75 73 12 129/74 98 03/15/21 16:50 80 15 137/92 97 03/15/21 16:43 88 20 90 03/15/21 16:40 97 H 14 135/82 94 03/15/21 16:30 102 H 15 110/94 84 L 03/15/21 16:22 37.7 C H 82 14 131/73 94 03/15/21 11:45 37 C 106 H 20 138/82 95 Diagnostic Findings Lumbar Spine X-Ray 03/15/21 12:55 FL lumbar spine 2-3V CLINICAL HISTORY: Posterior decompression and fusion. COMPARISON STUDY: CT lumbar myelogram April 30, 2020. FLUOROSCOPY TIME: 26 seconds. FLUOROSCOPIC IMAGES: 2 FINDINGS: Fluoroscopy was provided during L4-L5 discectomy with interbody spacer placement. Posterior decompression is noted. There are bilateral pedicle screws at the L4 and L5 levels. IMPRESSION: Fluoroscopy provided during L4-L5 discectomy, posterior decompression and bilateral pedicle screw fusion. ACT 112: Negative or not required by law. Electronically signed by: Inocencio Vasquez M.D. 03/15/2021 4:53 PM Medications Administered Current Inpatient Medications Acetaminophen (Acetaminophen 500 Mg Tab) 1,000 mg PO Q8H PRN PRN Reason: MILD Pain Scale 1,2,3 & Pre PT Stop: 04/14/21 18:08 Al Hydrox/Mg Hydrox/Simethicone (Aluminum/Magnesium Susp 30 Ml Udc) 30 ml PO Q6H PRN PRN Reason: Dyspepsia Stop: 04/14/21 18:08 Albuterol (Albuterol 0.083% Nebu Soln 3 Ml Vial) 2.5 mg INH Q4R PRN; Protocol PRN Reason: Shortness Of Breath Stop: 04/14/21 18:08 Bisacodyl (Bisacodyl 10 Mg Supp) 10 mg DC DAILY PRN PRN Reason: Constipation Stop: 04/14/21 18:08 Diphenhydramine HCl (Diphenhydramine Capsule 25 Mg Cap) 25 mg PO Q6H PRN PRN Reason: Allergic Rhinitis/Insomnia Stop: 04/14/21 18:08 Famotidine (Famotidine 20 Mg Tab) 20 mg PO Q12H PRN PRN Reason: Dyspepsia Stop: 04/14/21 18:08 Hydromorphone HCl (Hydromorphone Inj 0.5 Mg/0.5 Ml Syr) 0.5 mg IV Q3H PRN PRN Reason: MODERATE Pain (Scale 4,5,6) & Pre PT Stop: 03/29/21 18:08 Hydromorphone HCl (Hydromorphone Inj 1 Mg/Ml Syringe) 1 mg IV Q3H PRN PRN Reason: SEVERE Pain (Scale 7,8,9,10) Stop: 03/29/21 18:08 Hydroxyzine HCl (Hydroxyzine Hcl 25 Mg Tab) 25 mg PO Q8H PRN PRN Reason: Anxiety Stop: 04/14/21 18:08 Lactated Ringer's (Lr) 1,000 mls @ 15 mls/hr IV .Q24H MARY Stop: 03/16/21 05:59 Last Infusion: 03/15/21 13:41 Dose: Infused Documented by: Cefazolin Sodium (Ancef 2000mg) 2,000 mg in 15 mls @ 3.75 mls/min IV Q8H MARY; Protocol Lactated Ringer's (Lr) 1,000 mls @ 150 mls/hr IV .Q6H40M MARY Stop: 04/14/21 18:08 Last Admin: 03/15/21 18:35 Dose: 150 mls/hr Documented by: Promethazine HCl 12.5 mg/ (Sodium Chloride) 50.5 mls @ 202 mls/hr IV Q6H PRN PRN Reason: Nausea &/or Vomiting Stop: 04/14/21 18:08 Acetaminophen (Ofirmev) 1,000 mg in 100 mls @ 400 mls/hr IV Q8H PRN PRN Reason: Pain Rating 1-3 & Pre PT Stop: 03/18/21 18:08 Lorazepam (Ativan) 0.5 mg in 1 mls @ 1 mls/min IV Q8H PRN PRN Reason: Sedation/Anxiety Stop: 04/14/21 18:08 Dexamethasone 6 mg/ Syringe 1.5 mls @ 1 mls/min IV DAILY [facility] Stop: 03/18/21 09:02 Influenza Virus Vaccine Quadrival (Do Not Administer Flu Vaccine) 1 ea N/A PRN PRN PRN Reason: Notification Stop: 04/14/21 18:08 Ketorolac Tromethamine (Ketorolac Tromethamine 15 Mg/Ml Vial) 15 mg IV Q6H [facility] Stop: 03/16/21 14:01 Lorazepam (Lorazepam 0.5 Mg Tab) 0.5 mg PO Q8H PRN PRN Reason: Sedation/Anxiety Stop: 04/14/21 18:08 Magnesium Hydroxide (Magnesium Hydroxide Susp 30 Ml Udc) 30 ml PO Q24H PRN PRN Reason: Constipation Stop: 04/14/21 18:08 Metoclopramide HCl (Metoclopramide Hcl Inj 5 Mg/Ml 2 Ml Vial) 10 mg IV Q6H PRN PRN Reason: Nausea &/or Vomiting Stop: 04/14/21 18:08 Naloxone HCl (Naloxone Hcl 0.4 Mg/1 Ml Vial/Carp) 0.1 mg IV Q5M PRN PRN Reason: Oversedation/Resp depression Stop: 04/14/21 18:08 Ondansetron HCl (Ondansetron Inj 2 Mg/Ml 2 Ml Vial) 4 mg IV Q6H PRN PRN Reason: Nausea &/or Vomiting Stop: 04/14/21 18:08 Ondansetron HCl (Ondansetron 4 Mg Od Tab) 4 mg PO Q6H PRN PRN Reason: Nausea Stop: 04/14/21 18:08 Oxycodone HCl (Oxycodone Hcl Ir 5 Mg Tab (Immediate Release)) 5 - 10 mg PO Q4H PRN PRN Reason: Pain & Pre PT Stop: 03/29/21 18:08 Pneumococcal Polyvalent Vaccine (Do Not Administer Pneumococcal Vaccine) 1 ea N/A PRN PRN PRN Reason: Notification Stop: 04/14/21 18:08 Polyethylene Glycol (Polyethylene (Miralax) 17 Gm Pack) 17 gm PO Q6 MARY Stop: 04/15/21 05:59 Senna/Docusate Sodium (Docusate Sodium/Senna 50/8.6mg Tab) 2 tab PO HS MARY Stop: 04/14/21 20:59 Sodium Biphosphate/Sodium Phosphate (Sod Phosphate/Sod Biphosphate Enema 132 Ml Btl) 132 ml DC ONE PRN PRN Reason: Constipation Stop: 04/14/21 18:08 Tramadol HCl (Tramadol Hcl 50 Mg Tablet) 50 - 100 mg PO Q4H PRN PRN Reason: Moderate-Severe pain & Pre PT Stop: 04/14/21 18:08
[2021-03-15] MEDS: LACTATED RINGER'S 1,000 ML IV SCH (18:35)
[2021-03-15] MEDS ORDERED: NICOTINE POLACRILEX 2 MG GUM MT PRN (19:43)
[2021-03-15] MEDS: KETOROLAC TROMETHAMINE 15 MG/ML VIAL IV SCH (21:22)
[2021-03-15] MEDS: DOCUSATE SODIUM/SENNA 50/8.6MG TAB PO SCH (21:30)
[2021-03-15] MEDS: ACETAMINOPHEN 1,000 MG/100 ML VIAL IV PRN (21:41)
[2021-03-15] MEDS: ceFAZolin 2000MG 2,000 MG/15 ML SYR IV SCH (21:41)
[2021-03-16] MEDS: KETOROLAC TROMETHAMINE 15 MG/ML VIAL IV SCH ×3 (01:51→13:28)
[2021-03-16] MEDS: LACTATED RINGER'S 1,000 ML IV SCH (02:10)
[2021-03-16] MEDS: POLYETHYLENE (MIRALAX) 17 GM PACK PO SCH ×3 (05:43→17:46)
[2021-03-16] MEDS: ceFAZolin 2000MG 2,000 MG/15 ML SYR IV SCH (05:45)
[2021-03-16 07:51] LABS: Basophils # (auto) 0.01 K/uL (0-0.2); Eosinophils # (auto) 0.01 K/uL (0-0.5); Hematocrit (blood only) 37.1 % (37-47); Hemoglobin 12.1 g/dL (12.0-16.0); Immature Granulocytes # (auto) 0.13 K/uL (0.00-0.02); Immature Granulocytes % (auto) 0.6 %; Lymphocytes # (auto) 2.43 K/uL (1.2-3.4); Lymphocytes % (auto) 10.6 %; Mean Corpuscular Hemoglobin 30.6 pg (25-34); Mean Corpuscular Hgb Conc 32.6 g/dL (32-36); Mean Corpuscular Volume 93.9 fL (80-100); Monocytes # (auto) 2.09 K/uL (0.11-0.59); Monocytes % (auto) 9.1 %; Neutrophils # (auto) 18.31 K/uL (1.4-6.5); Neutrophils % (auto) 79.7 %; Platelet Count 297 K/uL (130-400); RDW Coefficient of Variation 13.2 % (11.5-14.5); RDW Standard Deviation 45.6 fL (36.4-46.3); Red Blood Count 3.95 M/uL (4.2-5.4); White Blood Count 22.98 K/uL (4.8-10.8)
[2021-03-16 08:19] LABS: BUN Creatinine Ratio 15.1 (10-20); Calcium 8.8 mg/dl (8.5-10.1); Creatinine Clr Calc Pharmacy 111.8 ml/min; Est GFR (African American) 89.4 ml/min; Est GFR (Non-African American) 77.2 ml/min; Potassium 4.4 mmol/L (3.5-5.1)
[2021-03-16 08:46] LABS: Estimated Average Glucose 114 mg/dl; Hemoglobin A1C 5.6 % (4.5-5.6)
[2021-03-16] MEDS: dexAMETHasone 6 MG in SYRINGE 0 ML IV SCH (09:00)
--- NOTE | 2021-03-16 11:03 | Orthopedic Progress Note ---
Date of Service March 16, 2021 Assessment & Plan (1) Neurogenic claudication due to lumbar spinal stenosis: Plan: At this time we will continue physical therapy monitor CHRISTINE output hopefully discharge home next few days. Admission and Anticipated Discharge Date Admission Date: March 15, 2021 Subjective Back pain controlled leg pain markedly improved Physical Exam Physical Exam: Patient is good strength testing. Appears comfortable. Results & Data ([facility]) Vital Signs (Past 12 Hours) Vital Signs Temp Pulse Pulse Resp BP Pulse Ox 03/16/21 08:12 36.9 C 85 18 122/73 96 03/16/21 05:51 96 03/16/21 03:41 94 H 20 94 03/16/21 01:45 36.4 C L 107 H 18 128/77 94
--- NOTE | 2021-03-16 20:08 | Hospitalist Progress Note ---
Date of Service March 16, 2021 Assessment & Plan (1) Neurogenic claudication due to lumbar spinal stenosis: (2) Post-operative state: Plan: s/p L4-S1 decompression and fusion by Dr. Rice EBL 150cc POD #1 -pain/wound management per Ortho -VTE prophylaxis per Ortho, encourage early ambulation -incentive spirometry encouraged -CBC, BMP in am -PT/OT and activity restrictions per Ortho -leukocytosis likely related to decadron administration (3) Postoperative hypoxia: Plan: likely related to recent anesthesia and/or recent dilaudid. She is off oxygen now and doing better. Cont CPAP overnight and nightly while she is admitted. (4) Sleep apnea: Plan: cont CPAP nightly while admitted. Has a h/o GUILLERMO but since her CPAP machine was recalled this has not been used at home. (5) Morbid obesity: Plan: lifestyle modifications recommended to increase lean muscle mass and reduce overall percent body fat. (6) Pre-diabetes: Plan: ruled out, A1C is 5.6. (7) Smoking: Plan: consistently smokers 1ppd. Uses singulair and albuterol PRN. Encouraged to quit. Has adhesive/tape allergy so added nicotine gum PRN (8) DVT prophylaxis: Plan: SCDs Full Code Dispo- per orthopedics once cleared. Daisy Jeff DO [facility] Hospitalist Admission and Anticipated Discharge Date Admission Date: March 15, 2021 Subjective 50 yo F s/p spinal surgery with Dr. Rice reports feeling well today pain is under control tolerating PO denies numbness or tingling breathing is ok but having some cough from smoking she has requested a breathing treatment. Review of Systems Review of Systems: All systems were reviewed and negative except as indicated in HPI above. Physical Exam Physical Exam: CONSTITUTIONAL: obese, vitals as above, generally well- appearing, NAD EYES: normal conjunctivae, no scleral icterus ENT: external ear and nose normal, MMM NECK: trachea midline RESPIRATORY: clear to auscultation bilaterally, no crackles, rales or wheezes, normal respiratory effort CARDIOVASCULAR: regular rate and rhythm, S1 and 2 heard without murmurs, gallops or rubs, no JVD, no peripheral edema GASTROINTESTINAL: soft, nontender, ND, no guarding MUSCULOSKELETAL: strength 5/5 throughout, head is normocephalic and atraumatic SKIN: warm and dry NEUROLOGIC: CN 2-12 grossly intact, no sensory deficit, normal cognition, normal speech, no tremor. No gross focal deficits. PSYCHIATRIC: alert cooperative and oriented to person, place and time. Results & Data Results & Data ([facility]) Vital Signs (Past 12 Hours) Vital Signs Temp Pulse Resp BP Pulse Ox 03/16/21 14:22 37.0 C 93 H 17 121/68 96 03/16/21 11:55 36.9 C 86 17 134/71 94 03/16/21 08:12 36.9 C 85 18 122/73 96 Laboratory Results Short CBC 03/16/21 Range/Units 07:32 WBC 22.98 H (4.8-10.8) K/uL Hgb 12.1 (12.0-16.0) g/dL Hct 37.1 (37-47) % Plt Count 297 (130-400) K/uL BMP 03/16/21 07:32 Sodium 139 Potassium 4.4 Chloride 105 Carbon Dioxide 28 BUN 13 Creatinine 0.88 Glucose 130 H Calcium 8.8 Medications Administered Current Inpatient Medications Acetaminophen (Acetaminophen 500 Mg Tab) 1,000 mg PO Q8H PRN PRN Reason: MILD Pain Scale 1,2,3 & Pre PT Stop: 04/14/21 18:08 Al Hydrox/Mg Hydrox/Simethicone (Aluminum/Magnesium Susp 30 Ml Udc) 30 ml PO Q6H PRN PRN Reason: Dyspepsia Stop: 04/14/21 18:08 Albuterol (Albuterol 0.083% Nebu Soln 3 Ml Vial) 2.5 mg INH Q4R PRN; Protocol PRN Reason: Shortness Of Breath Stop: 04/14/21 18:08 Last Admin: 03/16/21 15:33 Dose: 2.5 mg Documented by: Bisacodyl (Bisacodyl 10 Mg Supp) 10 mg ME DAILY PRN PRN Reason: Constipation Stop: 04/14/21 18:08 Diphenhydramine HCl (Diphenhydramine Capsule 25 Mg Cap) 25 mg PO Q6H PRN PRN Reason: Allergic Rhinitis/Insomnia Stop: 04/14/21 18:08 Famotidine (Famotidine 20 Mg Tab) 20 mg PO Q12H PRN PRN Reason: Dyspepsia Stop: 04/14/21 18:08 Hydromorphone HCl (Hydromorphone Inj 0.5 Mg/0.5 Ml Syr) 0.5 mg IV Q3H PRN PRN Reason: MODERATE Pain (Scale 4,5,6) & Pre PT Stop: 03/29/21 18:08 Hydromorphone HCl (Hydromorphone Inj 1 Mg/Ml Syringe) 1 mg IV Q3H PRN PRN Reason: SEVERE Pain (Scale 7,8,9,10) Stop: 03/29/21 18:08 Hydroxyzine HCl (Hydroxyzine Hcl 25 Mg Tab) 25 mg PO Q8H PRN PRN Reason: Anxiety Stop: 04/14/21 18:08 Cefazolin Sodium (Ancef 2000mg) 2,000 mg in 15 mls @ 3.75 mls/min IV Q8H MARY; Protocol Last Admin: 03/16/21 05:45 Dose: 3.75 mls/min Documented by: Promethazine HCl 12.5 mg/ (Sodium Chloride) 50.5 mls @ 202 mls/hr IV Q6H PRN PRN Reason: Nausea &/or Vomiting Stop: 04/14/21 18:08 Acetaminophen (Ofirmev) 1,000 mg in 100 mls @ 400 mls/hr IV Q8H PRN PRN Reason: Pain Rating 1-3 & Pre PT Stop: 03/18/21 18:08 Last Infusion: 03/15/21 22:44 Dose: Infused Documented by: Lorazepam (Ativan) 0.5 mg in 1 mls @ 1 mls/min IV Q8H PRN PRN Reason: Sedation/Anxiety Stop: 04/14/21 18:08 Dexamethasone 6 mg/ Syringe 1.5 mls @ 1 mls/min IV DAILY MARY Stop: 03/18/21 09:02 Last Admin: 03/16/21 09:00 Dose: 1 mls/min Documented by: Influenza Virus Vaccine Quadrival (Do Not Administer Flu Vaccine) 1 ea N/A PRN PRN PRN Reason: Notification Stop: 04/14/21 18:08 Lorazepam (Lorazepam 0.5 Mg Tab) 0.5 mg PO Q8H PRN PRN Reason: Sedation/Anxiety Stop: 04/14/21 18:08 Magnesium Hydroxide (Magnesium Hydroxide Susp 30 Ml Udc) 30 ml PO Q24H PRN PRN Reason: Constipation Stop: 04/14/21 18:08 Metoclopramide HCl (Metoclopramide Hcl Inj 5 Mg/Ml 2 Ml Vial) 10 mg IV Q6H PRN PRN Reason: Nausea &/or Vomiting Stop: 04/14/21 18:08 Naloxone HCl (Naloxone Hcl 0.4 Mg/1 Ml Vial/Carp) 0.1 mg IV Q5M PRN PRN Reason: Oversedation/Resp depression Stop: 04/14/21 18:08 Nicotine Polacrilex (Nicotine Polacrilex 2 Mg Gum) 1 piece MT Q4H PRN PRN Reason: nicotine craving Stop: 04/14/21 19:42 Ondansetron HCl (Ondansetron Inj 2 Mg/Ml 2 Ml Vial) 4 mg IV Q6H PRN PRN Reason: Nausea &/or Vomiting Stop: 04/14/21 18:08 Ondansetron HCl (Ondansetron 4 Mg Od Tab) 4 mg PO Q6H PRN PRN Reason: Nausea Stop: 04/14/21 18:08 Oxycodone HCl (Oxycodone Hcl Ir 5 Mg Tab (Immediate Release)) 5 - 10 mg PO Q4H PRN PRN Reason: Pain & Pre PT Stop: 03/29/21 18:08 Pneumococcal Polyvalent Vaccine (Do Not Administer Pneumococcal Vaccine) 1 ea N/A PRN PRN PRN Reason: Notification Stop: 04/14/21 18:08 Polyethylene Glycol (Polyethylene (Miralax) 17 Gm Pack) 17 gm PO Q6 MARY Stop: 04/15/21 05:59 Last Admin: 03/16/21 17:46 Dose: Not Given Documented by: Senna/Docusate Sodium (Docusate Sodium/Senna 50/8.6mg Tab) 2 tab PO HS MARY Stop: 04/14/21 20:59 Last Admin: 03/15/21 21:30 Dose: Not Given Documented by: Sodium Biphosphate/Sodium Phosphate (Sod Phosphate/Sod Biphosphate Enema 132 Ml Btl) 132 ml ME ONE PRN PRN Reason: Constipation Stop: 04/14/21 18:08 Tramadol HCl (Tramadol Hcl 50 Mg Tablet) 50 - 100 mg PO Q4H PRN PRN Reason: Moderate-Severe pain & Pre PT Stop: 04/14/21 18:08
[2021-03-16] MEDS: DOCUSATE SODIUM/SENNA 50/8.6MG TAB PO SCH (20:38)
[2021-03-16] MEDS: oxyCODONE HCL IR 5 MG TAB (IMMEDIATE RELEASE) PO PRN (20:40)
[2021-03-17] MEDS: POLYETHYLENE (MIRALAX) 17 GM PACK PO SCH (00:15)
[2021-03-17] MEDS: oxyCODONE HCL IR 5 MG TAB (IMMEDIATE RELEASE) PO PRN ×3 (05:08→20:58)
[2021-03-17] MEDS ORDERED: Nursing to Pharmacy Communication SCH (05:15)
[2021-03-17 07:35] LABS: Hematocrit (blood only) 36.2 % (37-47); Hemoglobin 11.9 g/dL (12.0-16.0); Mean Corpuscular Hemoglobin 30.7 pg (25-34); Mean Corpuscular Hgb Conc 32.9 g/dL (32-36); Mean Corpuscular Volume 93.5 fL (80-100); Mean Platelet Volume 8.9 fL (7.4-10.4); Platelet Count 294 K/uL (130-400); RDW Coefficient of Variation 13.5 % (11.5-14.5); RDW Standard Deviation 46.3 fL (36.4-46.3); Red Blood Count 3.87 M/uL (4.2-5.4); White Blood Count 21.13 K/uL (4.8-10.8)
[2021-03-17] MEDS: dexAMETHasone 6 MG in SYRINGE 0 ML IV SCH (09:02)
--- NOTE | 2021-03-17 09:13 | Hospitalist Progress Note ---
Date of Service March 17, 2021 Assessment & Plan (1) Neurogenic claudication due to lumbar spinal stenosis: (2) Post-operative state: Plan: s/p L4-S1 decompression and fusion by Dr. Rice EBL 150cc POD #2 -pain/wound management per Ortho -VTE prophylaxis per Ortho, encourage early ambulation -incentive spirometry encouraged -CBC, BMP in am -PT/OT and activity restrictions per Ortho -leukocytosis likely related to decadron administration (3) Postoperative hypoxia: Plan: likely related to recent anesthesia and/or recent dilaudid. This has resolved. Cont CPAP overnight and nightly while she is admitted. (4) Sleep apnea: Plan: cont CPAP nightly while admitted. Has a h/o GUILLERMO but since her CPAP machine was recalled this has not been used at home. (5) Morbid obesity: Plan: lifestyle modifications recommended to increase lean muscle mass and reduce overall percent body fat. (6) Pre-diabetes: Plan: ruled out, A1C is 5.6. (7) Smoking: Plan: consistently smokers 1ppd. Uses singulair and albuterol PRN. Encouraged to quit. Has adhesive/tape allergy so added nicotine gum PRN (8) DVT prophylaxis: Plan: SCDs Full Code Dispo- per orthopedics once cleared. Daisy Jeff DO [facility] Hospitalist Admission and Anticipated Discharge Date Admission Date: March 15, 2021 Subjective 50 yo F s/p spinal surgery with Dr. Rice reports feeling well today pain is under control tolerating PO reports some numbness on the lateral sides of her feet bilaterally wasn't sure is she was aware of this yesterday feels breathing is improved, again hypoxia has resolved BM x 3 so far ambulating with therapist this am. Review of Systems Review of Systems: All systems were reviewed and negative except as indicated in HPI above. Physical Exam Physical Exam: CONSTITUTIONAL: obese, vitals as above, generally well- appearing, NAD EYES: normal conjunctivae, no scleral icterus ENT: external ear and nose normal, MMM NECK: trachea midline RESPIRATORY: clear to auscultation bilaterally, no crackles, rales or wheezes, normal respiratory effort CARDIOVASCULAR: regular rate and rhythm, S1 and 2 heard without murmurs, gallops or rubs, no JVD, no peripheral edema GASTROINTESTINAL: soft, nontender, ND, no guarding MUSCULOSKELETAL: strength 5/5 throughout, head is normocephalic and atraumatic SKIN: warm and dry NEUROLOGIC: CN 2-12 grossly intact, no sensory deficit, normal cognition, normal speech, no tremor. No gross focal deficits. PSYCHIATRIC: alert cooperative and oriented to person, place and time. Results & Data Results & Data ([facility]) Vital Signs (Past 12 Hours) Vital Signs Temp Pulse Resp BP BP Pulse Ox 03/17/21 07:28 37.0 C 89 16 114/63 96 03/16/21 22:45 37 C 81 16 137/70 92 Laboratory Results Short CBC 03/17/21 Range/Units 07:24 WBC 21.13 H (4.8-10.8) K/uL Hgb 11.9 L (12.0-16.0) g/dL Hct 36.2 L (37-47) % Plt Count 294 (130-400) K/uL Medications Administered Current Inpatient Medications Acetaminophen (Acetaminophen 500 Mg Tab) 1,000 mg PO Q8H PRN PRN Reason: MILD Pain Scale 1,2,3 & Pre PT Stop: 04/14/21 18:08 Al Hydrox/Mg Hydrox/Simethicone (Aluminum/Magnesium Susp 30 Ml Udc) 30 ml PO Q6H PRN PRN Reason: Dyspepsia Stop: 04/14/21 18:08 Albuterol (Albuterol 0.083% Nebu Soln 3 Ml Vial) 2.5 mg INH Q4R PRN; Protocol PRN Reason: Shortness Of Breath Stop: 04/14/21 18:08 Last Admin: 03/16/21 15:33 Dose: 2.5 mg Documented by: Bisacodyl (Bisacodyl 10 Mg Supp) 10 mg MI DAILY PRN PRN Reason: Constipation Stop: 04/14/21 18:08 Diphenhydramine HCl (Diphenhydramine Capsule 25 Mg Cap) 25 mg PO Q6H PRN PRN Reason: Allergic Rhinitis/Insomnia Stop: 04/14/21 18:08 Famotidine (Famotidine 20 Mg Tab) 20 mg PO Q12H PRN PRN Reason: Dyspepsia Stop: 04/14/21 18:08 Hydromorphone HCl (Hydromorphone Inj 0.5 Mg/0.5 Ml Syr) 0.5 mg IV Q3H PRN PRN Reason: MODERATE Pain (Scale 4,5,6) & Pre PT Stop: 03/29/21 18:08 Hydromorphone HCl (Hydromorphone Inj 1 Mg/Ml Syringe) 1 mg IV Q3H PRN PRN Reason: SEVERE Pain (Scale 7,8,9,10) Stop: 03/29/21 18:08 Hydroxyzine HCl (Hydroxyzine Hcl 25 Mg Tab) 25 mg PO Q8H PRN PRN Reason: Anxiety Stop: 04/14/21 18:08 Cefazolin Sodium (Ancef 2000mg) 2,000 mg in 15 mls @ 3.75 mls/min IV Q8H MARY; Protocol Last Admin: 03/16/21 05:45 Dose: 3.75 mls/min Documented by: Promethazine HCl 12.5 mg/ (Sodium Chloride) 50.5 mls @ 202 mls/hr IV Q6H PRN PRN Reason: Nausea &/or Vomiting Stop: 04/14/21 18:08 Acetaminophen (Ofirmev) 1,000 mg in 100 mls @ 400 mls/hr IV Q8H PRN PRN Reason: Pain Rating 1-3 & Pre PT Stop: 03/18/21 18:08 Last Infusion: 03/15/21 22:44 Dose: Infused Documented by: Lorazepam (Ativan) 0.5 mg in 1 mls @ 1 mls/min IV Q8H PRN PRN Reason: Sedation/Anxiety Stop: 04/14/21 18:08 Dexamethasone 6 mg/ Syringe 1.5 mls @ 1 mls/min IV DAILY MARY Stop: 03/18/21 09:02 Last Admin: 03/17/21 09:02 Dose: 1 mls/min Documented by: Influenza Virus Vaccine Quadrival (Do Not Administer Flu Vaccine) 1 ea N/A PRN PRN PRN Reason: Notification Stop: 04/14/21 18:08 Lorazepam (Lorazepam 0.5 Mg Tab) 0.5 mg PO Q8H PRN PRN Reason: Sedation/Anxiety Stop: 04/14/21 18:08 Magnesium Hydroxide (Magnesium Hydroxide Susp 30 Ml Udc) 30 ml PO Q24H PRN PRN Reason: Constipation Stop: 04/14/21 18:08 Metoclopramide HCl (Metoclopramide Hcl Inj 5 Mg/Ml 2 Ml Vial) 10 mg IV Q6H PRN PRN Reason: Nausea &/or Vomiting Stop: 04/14/21 18:08 Naloxone HCl (Naloxone Hcl 0.4 Mg/1 Ml Vial/Carp) 0.1 mg IV Q5M PRN PRN Reason: Oversedation/Resp depression Stop: 04/14/21 18:08 Nicotine Polacrilex (Nicotine Polacrilex 2 Mg Gum) 1 piece MT Q4H PRN PRN Reason: nicotine craving Stop: 04/14/21 19:42 Ondansetron HCl (Ondansetron Inj 2 Mg/Ml 2 Ml Vial) 4 mg IV Q6H PRN PRN Reason: Nausea &/or Vomiting Stop: 04/14/21 18:08 Ondansetron HCl (Ondansetron 4 Mg Od Tab) 4 mg PO Q6H PRN PRN Reason: Nausea Stop: 04/14/21 18:08 Oxycodone HCl (Oxycodone Hcl Ir 5 Mg Tab (Immediate Release)) 5 - 10 mg PO Q4H PRN PRN Reason: Pain & Pre PT Stop: 03/29/21 18:08 Last Admin: 03/17/21 05:08 Dose: 10 mg Documented by: Pneumococcal Polyvalent Vaccine (Do Not Administer Pneumococcal Vaccine) 1 ea N/A PRN PRN PRN Reason: Notification Stop: 04/14/21 18:08 Senna/Docusate Sodium (Docusate Sodium/Senna 50/8.6mg Tab) 2 tab PO HS MARY Stop: 04/14/21 20:59 Last Admin: 03/16/21 20:38 Dose: Not Given Documented by: Sodium Biphosphate/Sodium Phosphate (Sod Phosphate/Sod Biphosphate Enema 132 Ml Btl) 132 ml MI ONE PRN PRN Reason: Constipation Stop: 04/14/21 18:08 Tramadol HCl (Tramadol Hcl 50 Mg Tablet) 50 - 100 mg PO Q4H PRN PRN Reason: Moderate-Severe pain & Pre PT Stop: 04/14/21 18:08
--- NOTE | 2021-03-17 10:59 | Orthopedic Progress Note ---
Date of Service March 17, 2021 Assessment & Plan (1) Neurogenic claudication due to lumbar spinal stenosis: Plan: This time continue physical therapy monitor CHRISTINE output and possible discharge home tomorrow. Admission and Anticipated Discharge Date Admission Date: March 15, 2021 Subjective Back pain controlled leg pain improved Physical Exam Physical Exam: At this time we will continue physical therapy monitor CHRISTINE output anticipate discharge home tomorrow. Results & Data ([facility]) Vital Signs (Past 12 Hours) Vital Signs Temp Pulse Resp BP Pulse Ox 03/17/21 07:28 37.0 C 89 16 114/63 96
[2021-03-17] MEDS: ACETAMINOPHEN 500 MG TAB PO PRN (15:22)
[2021-03-17] MEDS: DOCUSATE SODIUM/SENNA 50/8.6MG TAB PO SCH (20:58)
[2021-03-18] MEDS: oxyCODONE HCL IR 5 MG TAB (IMMEDIATE RELEASE) PO PRN ×3 (03:25→16:20)
[2021-03-18 06:24] LABS: Hematocrit (blood only) 35.5 % (37-47); Hemoglobin 11.4 g/dL (12.0-16.0); Mean Corpuscular Hemoglobin 29.8 pg (25-34); Mean Corpuscular Hgb Conc 32.1 g/dL (32-36); Mean Corpuscular Volume 92.7 fL (80-100); Mean Platelet Volume 8.9 fL (7.4-10.4); Platelet Count 263 K/uL (130-400); RDW Coefficient of Variation 13.2 % (11.5-14.5); Red Blood Count 3.83 M/uL (4.2-5.4)
[2021-03-18 06:55] LABS: BUN Creatinine Ratio 18.5 (10-20); Calcium 8.8 mg/dl (8.5-10.1); Creatinine Clr Calc Pharmacy 144.6 ml/min; Est GFR (Non-African American) 102.7 ml/min; Potassium 3.7 mmol/L (3.5-5.1)
[2021-03-18] MEDS: ACETAMINOPHEN 500 MG TAB PO PRN (07:42)
--- NOTE | 2021-03-18 08:13 | Hospitalist Progress Note ---
Date of Service March 18, 2021 Assessment & Plan (1) Neurogenic claudication due to lumbar spinal stenosis: (2) Post-operative state: Plan: s/p L4-S1 decompression and fusion by Dr. Rice EBL 150cc POD #3 -pain/wound management per Ortho -VTE prophylaxis per Ortho, encourage early ambulation -incentive spirometry encouraged -CBC, BMP in am -PT/OT and activity restrictions per Ortho -leukocytosis likely related to decadron administration (3) Postoperative hypoxia: Plan: likely related to recent anesthesia and/or recent dilaudid. This has resolved. Cont CPAP overnight and nightly while she is admitted. (4) Sleep apnea: Plan: cont CPAP nightly while admitted. Has a h/o GUILLERMO but since her CPAP machine was recalled this has not been used at home. (5) Morbid obesity: Plan: lifestyle modifications recommended (6) Pre-diabetes: Plan: ruled out, A1C is 5.6. (7) Smoking: Plan: consistently smokers 1ppd. Uses singulair and albuterol PRN. Encouraged to quit. Has adhesive/tape allergy so added nicotine gum PRN Discussed nicotine patch, patient is willing to try it, ordered She would like to try to quit, 1 [phone] quit now, free smoking cessation line discussed as well and number provided on discharge (8) DVT prophylaxis: Plan: SCDs Full Code Dispo- possibly DC today (per orthopedics) Admission and Anticipated Discharge Date Admission Date: March 15, 2021 Subjective 50 yo F s/p spinal surgery with Dr. Rice Patient is sitting up in bed, in no acute distress Says that she was having some headache and, wonders if it is due to not smoking for past few days Discussed nicotine patch, will order No chest pain, shortness of breath, no fevers or chills Currently on room air, speaking in full sentences, saturating 95% She says that she has some mild cough Reports that her legs feel well, no significant pain Review of Systems Review of Systems: All systems reviewed & are unremarkable except as noted in Subjective Physical Exam Physical Exam: CONSTITUTIONAL: obese F, generally well-appearing, in NAD EYES: EOMI, PERRL, normal conjunctivae, no scleral icterus ENT: external ear and nose normal, MMM NECK: trachea midline RESPIRATORY: clear to auscultation bilaterally, no crackles, rales or wheezes, normal respiratory effort CARDIOVASCULAR: regular rate and rhythm, S1 and 2 heard without murmurs, gallops or rubs, no JVD, no peripheral edema GASTROINTESTINAL: soft, nontender, ND, no guarding MUSCULOSKELETAL: strength 5/5 throughout, head is normocephalic and atraumatic SKIN: warm and dry NEUROLOGIC:Alert oriented, answering questions appropriately, speech fluent, no facial asymmetry, moves extremities PSYCHIATRIC:Euthymic affect Results & Data Results & Data ([facility]) Vital Signs (Past 12 Hours) Vital Signs Temp Pulse Resp BP Pulse Ox 03/18/21 07:32 37.1 C 89 18 113/74 95 03/17/21 22:51 37.0 C 85 18 114/65 93 Laboratory Results 03/18/21 03/18/21 Range/Units 06:04 06:04 WBC 20.20 H (4.8-10.8) K/uL RBC 3.83 L (4.2-5.4) M/uL Hgb 11.4 L (12.0-16.0) g/dL Hct 35.5 L (37-47) % MCV 92.7 (80-100) fL MCH 29.8 (25-34) pg MCHC 32.1 (32-36) g/dL RDW Std Deviation 45.0 (36.4-46.3) fL RDW Coeff of Javier 13.2 (11.5-14.5) % Plt Count 263 (130-400) K/uL MPV 8.9 (7.4-10.4) fL Sodium 137 (136-145) mmol/L Potassium 3.7 D (3.5-5.1) mmol/L Chloride 103 (98-107) mmol/L Carbon Dioxide 28 (21-32) mmol/L Anion Gap 6.0 (3-11) BUN 13 (7-18) mg/dl Creatinine 0.68 (0.6-1.2) mg/dl Est Cr Clr Drug Dosing 144.6 ml/min Est GFR ( Amer) 119.0 ml/min Est GFR (Non-Af Amer) 102.7 ml/min BUN/Creatinine Ratio 18.5 (10-20) Glucose 104 H (70-99) mg/dl Calcium 8.8 (8.5-10.1) mg/dl Medications Administered Current Inpatient Medications Acetaminophen (Acetaminophen 500 Mg Tab) 1,000 mg PO Q8H PRN PRN Reason: MILD Pain Scale 1,2,3 & Pre PT Stop: 04/14/21 18:08 Last Admin: 03/18/21 07:42 Dose: 1,000 mg Documented by: Al Hydrox/Mg Hydrox/Simethicone (Aluminum/Magnesium Susp 30 Ml Udc) 30 ml PO Q6H PRN PRN Reason: Dyspepsia Stop: 04/14/21 18:08 Albuterol (Albuterol 0.083% Nebu Soln 3 Ml Vial) 2.5 mg INH Q4R PRN; Protocol PRN Reason: Shortness Of Breath Stop: 04/14/21 18:08 Last Admin: 03/16/21 15:33 Dose: 2.5 mg Documented by: Bisacodyl (Bisacodyl 10 Mg Supp) 10 mg NM DAILY PRN PRN Reason: Constipation Stop: 04/14/21 18:08 Diphenhydramine HCl (Diphenhydramine Capsule 25 Mg Cap) 25 mg PO Q6H PRN PRN Reason: Allergic Rhinitis/Insomnia Stop: 04/14/21 18:08 Famotidine (Famotidine 20 Mg Tab) 20 mg PO Q12H PRN PRN Reason: Dyspepsia Stop: 04/14/21 18:08 Hydromorphone HCl (Hydromorphone Inj 0.5 Mg/0.5 Ml Syr) 0.5 mg IV Q3H PRN PRN Reason: MODERATE Pain (Scale 4,5,6) & Pre PT Stop: 03/29/21 18:08 Hydromorphone HCl (Hydromorphone Inj 1 Mg/Ml Syringe) 1 mg IV Q3H PRN PRN Reason: SEVERE Pain (Scale 7,8,9,10) Stop: 03/29/21 18:08 Hydroxyzine HCl (Hydroxyzine Hcl 25 Mg Tab) 25 mg PO Q8H PRN PRN Reason: Anxiety Stop: 04/14/21 18:08 Cefazolin Sodium (Ancef 2000mg) 2,000 mg in 15 mls @ 3.75 mls/min IV Q8H MARY; Protocol Last Admin: 03/16/21 05:45 Dose: 3.75 mls/min Documented by: Promethazine HCl 12.5 mg/ (Sodium Chloride) 50.5 mls @ 202 mls/hr IV Q6H PRN PRN Reason: Nausea &/or Vomiting Stop: 04/14/21 18:08 Acetaminophen (Ofirmev) 1,000 mg in 100 mls @ 400 mls/hr IV Q8H PRN PRN Reason: Pain Rating 1-3 & Pre PT Stop: 03/18/21 18:08 Last Infusion: 03/15/21 22:44 Dose: Infused Documented by: Lorazepam (Ativan) 0.5 mg in 1 mls @ 1 mls/min IV Q8H PRN PRN Reason: Sedation/Anxiety Stop: 04/14/21 18:08 Dexamethasone 6 mg/ Syringe 1.5 mls @ 1 mls/min IV DAILY MARY Stop: 03/18/21 09:02 Last Admin: 03/17/21 09:02 Dose: 1 mls/min Documented by: Influenza Virus Vaccine Quadrival (Do Not Administer Flu Vaccine) 1 ea N/A PRN PRN PRN Reason: Notification Stop: 04/14/21 18:08 Lorazepam (Lorazepam 0.5 Mg Tab) 0.5 mg PO Q8H PRN PRN Reason: Sedation/Anxiety Stop: 04/14/21 18:08 Magnesium Hydroxide (Magnesium Hydroxide Susp 30 Ml Udc) 30 ml PO Q24H PRN PRN Reason: Constipation Stop: 04/14/21 18:08 Metoclopramide HCl (Metoclopramide Hcl Inj 5 Mg/Ml 2 Ml Vial) 10 mg IV Q6H PRN PRN Reason: Nausea &/or Vomiting Stop: 04/14/21 18:08 Naloxone HCl (Naloxone Hcl 0.4 Mg/1 Ml Vial/Carp) 0.1 mg IV Q5M PRN PRN Reason: Oversedation/Resp depression Stop: 04/14/21 18:08 Nicotine Polacrilex (Nicotine Polacrilex 2 Mg Gum) 1 piece MT Q4H PRN PRN Reason: nicotine craving Stop: 04/14/21 19:42 Ondansetron HCl (Ondansetron Inj 2 Mg/Ml 2 Ml Vial) 4 mg IV Q6H PRN PRN Reason: Nausea &/or Vomiting Stop: 04/14/21 18:08 Ondansetron HCl (Ondansetron 4 Mg Od Tab) 4 mg PO Q6H PRN PRN Reason: Nausea Stop: 04/14/21 18:08 Oxycodone HCl (Oxycodone Hcl Ir 5 Mg Tab (Immediate Release)) 5 - 10 mg PO Q4H PRN PRN Reason: Pain & Pre PT Stop: 03/29/21 18:08 Last Admin: 03/18/21 03:25 Dose: 10 mg Documented by: Pneumococcal Polyvalent Vaccine (Do Not Administer Pneumococcal Vaccine) 1 ea N/A PRN PRN PRN Reason: Notification Stop: 04/14/21 18:08 Senna/Docusate Sodium (Docusate Sodium/Senna 50/8.6mg Tab) 2 tab PO HS MARY Stop: 04/14/21 20:59 Last Admin: 03/17/21 20:58 Dose: 2 tab Documented by: Sodium Biphosphate/Sodium Phosphate (Sod Phosphate/Sod Biphosphate Enema 132 Ml Btl) 132 ml NM ONE PRN PRN Reason: Constipation Stop: 04/14/21 18:08 Tramadol HCl (Tramadol Hcl 50 Mg Tablet) 50 - 100 mg PO Q4H PRN PRN Reason: Moderate-Severe pain & Pre PT Stop: 04/14/21 18:08
[2021-03-18] MEDS: dexAMETHasone 6 MG in SYRINGE 0 ML IV SCH (09:43)
[2021-03-18] MEDS ORDERED: NICOTINE 7 MG/24 HR TDSY TD SCH (10:00)
--- NOTE | 2021-03-18 12:22 | Discharge Summary ---
Date of Service March 18, 2021 Admission HPI Per Admitting Provider This is a 50-year-old female presents with bulge diagnosis after failing course of nonoperative care she is here for surgical invention. Principal Diagnosis Lumbar spinal stenosis with spondylolisthesis Discharge Data Allergies Allergy/AdvReac Type Severity Reaction Status Date / Time adhesive Allergy Mild Irritation Verified 03/15/21 11:39 with tape doxycycline AdvReac Intermediate dizziness, Verified 03/15/21 11:39 blurred vision Sulfa (Sulfonamide AdvReac Intermediate dizziness, Verified 03/15/21 11:39 Antibiotics) blurred vision Consultations 03/15/21 18:09 Consult Hospitalist Routine Procedures Performed Operation Date: 03/15/21 12:55 Actual Procedures p L4-S1 Decompression and Fusion, Spinal Cord Monitoring(Not Applicable) - Alejandro Rice DO Ordered Studies 03/15/21 12:55 FL lumbar spine 2-3V Routine Hospital Course (1) Neurogenic claudication due to lumbar spinal stenosis: Patient with lumbar decompression fusion trial as well as leg orthopedic for postoperative. Postop day 1 she was up and ambulating progressive postop day #2 CHRISTINE drain decreasing probably. Pain well controlled. Subsequent discharge home on postop day #3. Discharge orders instructions found the chart for further review. Total Time Total Time Spent Total Time Spent (In Minutes): 20 minutes Discharge Plan Discharge Items Patient Disposition: Home - Self-Care Reason For Visit: Spondylolisthesis, Lumbar Region Discharge Diagnosis: Lumbar spinal stenosis with spondylolisthesis Activity: As commented below Non-emergency contact: Primary Care Provider Call non-emergency contact if: you have any medication questions Follow-up/Referrals: Mary Grace Oscar MD [Primary Care Provider] - Diet: Regular Addtl Attending Provider Instructions: ACTIVITY RECOMMENDATIONS: SELF CARE INSTRUCTIONS AFTER THORACIC/LUMBAR FUSIONS 1. You may walk to your tolerance. It is good exercise for your legs and back. Expect some back and intermittent leg aches and pains. 2. You may perform "counter-top" level activities (make a sandwich, kamila with a project, etc.). 3. No bending or lifting of more than 10 pounds or back twisting of any nature (roll like a log when turning in bed). 4. You may ride in a car for 20-30 minutes at a time. No driving until after your first visit with your doctor. 5. Frequent changes of position and restricting sitting to 30 minutes at a time will help limit the amount of back spasms and stiffness you may experience. 6. You may discontinue the use of ambulatory aids (cane, crutches, etc.) once your strength and confidence allow. 7. You may arts and crafts instructor the shower and let water strike your incision when you arrive home at least once daily. Do not take a tub bath, sit in a hot tub or go into a swimming pool until after your first recheck in the office. SPECIAL CARE INSTRUCTIONS: VERY IMPORTANT TO READ AND REVIEW A. Your surgical incision has been closed with a cosmetic suture under the skin that will dissolve in about 6 weeks. In 14 days, you can use a pair of clean scissors and cut the suture that is left outside of the skin at the ends of your incision. 1. The small skin tapes can be removed 7 days after surgery if they have not fallen off by that point. 2. You may keep the wound open to air as much as possible to promote healing after post-op day number 5 unless told otherwise by your doctor. 3. If you think the wound looks like it is becoming infected (redness or worsening drainage) and/or you are experiencing fever, chill or worsening back pain and muscle spasms, contact the office so that we may evaluate you as soon as possible. B. Complications are uncommon, but please contact us if you have any signs or symptoms of: 1. wound infection (fever higher than 102.5 degrees F, redness, separation of wound, drainage, or increasing pain from the incision) 2. blood clots in legs (pain, swelling, redness and warmth in legs) 3. urinary tract infection (fever higher than 102.5 degrees F, burning upon urination or increased frequency of urination) 4. nerve problems (inability to walk on your toes or heels, numbness, loss of bowel or bladder control) 5. any other symptoms that concern you C. Please call the office at if you have any concerns or questions about your operation or recovery. D. No smoking! Smoking drastically decreases the chance of a solid fusion. E. Do not take any anti-inflammatory medications (Indocin, Advil, Motrin, Aspirin, Naprosyn, etc.) as these may inhibit the chance of a solid fusion. Tylenol is okay to take for pain. MANAGING PAIN AFTER SPINAL SURGERY 1. Narcotic medication is intended for short-term use and will be provided for surgical pain. Surgical pain usually lasts for a period of 4-6 weeks. Narcotic medication includes Percocet, Vicodin, Darvocet, Tylenol #3 or Lortab. 2. Longer-term pain is more appropriately treated with non-narcotic medication such as Tylenol ES. 3. Muscle spasm is not appropriately treated with narcotics. Muscle relaxers such as Soma, Flexeril or Skelaxin can be used along with Tylenol ES. 4. Remember that we all live with some "aches and pains". This is not unusual or uncommon after an injury or as we get older. a. Back pain is expected and may include muscle spasms for 4 to 6 weeks after surgery. The pain should gradually improve. If the pain worsens for no apparent reason, please contact the office. b. Intermittent leg pain may also be experienced and should not be concerned about unless it worsens for no apparent reason. If so, please contact the office. 5. We will provide appropriate medication within the normal guidelines of their prescribed use. We will also be very cautious and aware of potential abuse and extended duration of patients' medication needs. a. Pain medications are for your comfort and to assist with sleep and rest so that the tissue can heal. They are not provided in order to return to normal activity and should not be used through the day. To do so or worsening pain at night can result from ongoing tissue damage and development of tolerance to the prescribed medicine. 6. Please allow 2-3 days to process refills. Prescriptions will not be mailed but must be picked up at the office. FOLLOW UP VISIT: Keep your scheduled follow-up appointment. Any questions, please call the office at . Addtl Valve Steamer Provider Instructions: For smoking cessation, consider calling 1 800 quit now, which is a free smoke cessation line. They will be able to assist you with your smoking cessation, and possibly even offer free nicotine supplements. Pending Studies at Discharge: No Stand-Alone Forms: [facility], Smoking Cessation Medications and DC Order Prescriptions: New oxycodone 5 mg tablet 5 mg PO Q6H PRN (Reason: pain, severe) Qty: 30 RF: 0 tramadol 50 mg tablet 50 mg PO Q6H PRN (Reason: pain, moderate) Qty: 30 RF: 0 nicotine 7 mg/24 hr Patch 24 Hour 7 mg transdermal QAM Qty: 14 RF: 0 Continued (DME) Auto Titrating CPAP Misc See Rx Instructions .Route Qty: 1 RF: 0 montelukast [Singulair] 10 mg Tablet 10 mg PO HS PRN (Reason: Allergy Symptoms) RF: 0 albuterol sulfate 2.5 mg /3 mL (0.083 %) Solution For Nebulization 2.5 mg INHALATION Q4H PRN (Reason: Shortness Of Breath) RF: 0 albuterol 90 mcg/actuation Aerosol INHALATION DIRECTED RF: 0 Discharge Orders: Discharge Order (Routine); Ordered 03/18/21 Ordered By: Alejandro Rice Admission Data Admit Date/Time: 03/15/21 16:03 Attending Provider: Alejandro Rice Admit Provider: Alejandro Rice Primary Care Provider: Mary Grace Oscar Other Providers: Jorge Machuca
[2021-03-18] MEDS: ACETAMINOPHEN 1,000 MG/100 ML VIAL IV PRN (14:33)
[2021-03-18] MEDS ORDERED: guaiFENesin 600 MG TABCR PO SCH (21:00)
== END 2021-03-18 17:10 | disposition home health service (06) | DRG 454 ==
LOC: ASU 11:22 → 3E 16:03

== ENCOUNTER 2021-03-19 18:41 | Inpatient (IN) ==
[2021-03-19] MEDS ORDERED: SODIUM CHLORIDE 0.9% 1000ML 1,000 ML IV STA (18:49)
--- NOTE | 2021-03-19 18:56 | Emergency Department Note ---
History of Present Illness General Chief complaint: Head Pain Stated complaint: spinal fluid leak Time Seen by Provider: 03/19/21 18:49 Source: patient Mode of arrival: ambulatory Limitations: no limitations History of Present Illness This patient is a 50-year-old female was brought in by EMS after having a severe headache. She had spinal surgery done here by Dr. Rice for spinal stenosis on Sunday. She has been having headaches. They think she does have a CSF leak. She said she was have a headache when she was discharged yesterday but they thought that if she went home and lay down she would feel better and would get better with time she says the pain was 10 out of 10 when they called in she has been vomiting. She has been using oxycodone and Tylenol at home. EMS did give her fentanyl 50 mcg IV x2 her symptoms are worse with position and are significantly worse. She still has a headache at rest. No fever no neck pain or stiffness. The wound has been healing well. no abdominal pain or chest pain or shortness of breath she has had the Covid vaccine as well as booster and has been tested recently as well. Denies any focal numbness or weakness Home Medications Medication Instructions Recorded Confirmed Type montelukast 10 mg tablet 10 mg PO HS PRN 08/18/20 03/19/21 History (Singulair) Auto Titrating CPAP #1 ea 12/23/20 Rx albuterol 90 mcg/actuation aerosol 90 mcg INHALATION DIRECTED 03/15/21 03/19/21 History inhaler albuterol sulfate 2.5 mg INHALATION Q4H PRN 03/15/21 03/19/21 History oxycodone 5 mg tablet 5 mg PO Q6H PRN #30 tab 03/16/21 03/19/21 Rx tramadol 50 mg tablet 50 mg PO Q6H PRN #30 tab 03/16/21 03/19/21 Rx nicotine 7 mg/24 hr daily 7 mg TRANSDERMAL QAM #14 ea 03/18/21 03/19/21 Rx transdermal patch acetaminophen 500 mg tablet 1,500 mg PO Q8 PRN 03/19/21 03/19/21 History (Tylenol Extra Strength) Allergies Allergy/AdvReac Type Severity Reaction Status Date / Time adhesive Allergy Mild Irritation Verified 03/19/21 19:34 with tape doxycycline AdvReac Intermediate dizziness, Verified 03/19/21 19:34 blurred vision Sulfa (Sulfonamide AdvReac Intermediate dizziness, Verified 03/19/21 19:34 Antibiotics) blurred vision Past Med/Surg History Medical History Arthritis Back Hx of diarrhea Controlled with sacral nerve implant- Medtronic (patient states she will bring remote AM DOS per nursing assessment/OR made aware) Morbid obesity BMI 41 Pre-diabetes Previously taking Metformin Seasonal allergies Sleep apnea CPAP (not using) Surgical History History of partial hysterectomy History of salpingectomy 2014 History of surgery Sacral nerve implant History of tonsillectomy and adenoidectomy Tonsillectomy Adenoidectomy, Uvulopalatoplasty, Somnoplasty Tongue Base (03/21/19): Grade view 2, Glidescope #3, ETT 7.0 at [facility] Hx of bilateral breast reduction surgery Hx of colonoscopy with polypectomy Family History Grandfather Heart disease Stroke Uncle Colon cancer Cancer Grandmother Heart disease Father Asthma Mother Family history of diabetes mellitus Other No family history of adverse response to anesthesia No family history of allergies No family history of bleeding disorder Denies family history of Hearing loss Hypertension Social History Smoking Status: Current every day smoker Tobacco Type: Cigarettes Age Started Using Tobacco: 16; packs per day: 1; Cigarettes Per Day: 20 a day; Second Hand Exposure: No; Hx Alcohol Use: No Hx Substance Use: No Preferred Language: Guyanese Communication Ability: Effective [employer] Administrator Required: No Beliefs That Will Affect Care: None marital status: Single Current Living Situation: Significant Other current occupational status: 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 How many Children do You have: 0 Feels Safe at Home: Yes Assistive Devices: Walker Review of Systems A total of 10 systems reviewed and were otherwise negative Physical Exam Vital Signs Vital Signs - 24 hr 03/19/21 18:51 03/19/21 19:14 Temperature 37 C Temperature Source Oral Pulse Rate 83 83 Pulse Rate [Left Radial] 83 Pulse Rhythm Regular Pulse Rhythm [Left Radial] Regular Pulse Strength Normal Pulse Strength [Left Radial] Normal Respiratory Rate 20 20 Respiratory Effort / Characteristics Non-Labored Non-Labored Respiratory Depth Normal Normal Respiratory Pattern Regular Blood Pressure 155/90 H Blood Pressure [Right Radial Artery] 155/90 H Blood Pressure Mean 111 Blood Pressure Mean [Right Radial Artery] 111 Blood Pressure Position Lying Blood Pressure Position [Right Radial Artery] Lying Pulse Oximetry 94 94 Oxygen Delivery Method Room Air Room Air Sepsis Recent Fever Within 48 Hours No Sepsis New/Unexplained Change in Mental Status No Sepsis Action Taken by Nursing No Action Required General: Well developed well nourished uncomfortable appearing middle-aged female who when I initially saw was being transferred from the ambulance later to the bed and that causes her to have a headache. She is in no acute respiratory distress, breathing comfortably on room air. Normal speech HEENT: Normal cephalic atraumatic. Pupils are equal round and reactive to light. Extraocular movements are intact. Oropharynx is pink with moist mucous membranes. No swelling of the mouth lips or tongue. Neck: Supple with a midline trachea. No meningeal signs or stiffness, no JVD or bruits. No Stridor. Chest: Clear to auscultation bilaterally. No wheezes or rhonchi. No increased work of breathing. Heart: Regular rate and rhythm without murmurs or gallops. Abdomen: Soft nontender, nondistended without rebound guarding or rigidity. Extremities: No cyanosis clubbing or edema. No calf tenderness or assymetry Spine/Back. Non tender to palpation. No CVA tenderness. Her wound appears to be well-healing without any redness, pus or drainage no fluctuance. Skin: Good turgor without rashes. Neurologic exam: Cranial nerves two through 12 are intact. Motor and sensation are intact and symmetrical throughout. Course Administered Medications Discontinued Medications Hydromorphone HCl (Hydromorphone Inj 1 Mg/Ml Syringe) 1 mg IV NOW STA Stop: 03/19/21 19:20 Last Admin: 03/19/21 19:32 Dose: 1 mg Documented by: [id number] Hydromorphone HCl (Hydromorphone Inj 1 Mg/Ml Syringe) 1 mg IV NOW STA Stop: 03/19/21 22:11 Last Admin: 03/19/21 22:21 Dose: 1 mg Documented by: [id number] Sodium Chloride (Nss 1000ml) 1,000 mls @ 999 mls/hr IV .Q1H1M STA Stop: 03/19/21 19:49 Last Infusion: 03/19/21 20:19 Dose: 0 mls/hr Documented by: [id number] Admin: 03/19/21 19:05 Dose: 999 mls/hr Documented by: [id number] Acetaminophen (Ofirmev) 1,000 mg in 100 mls @ 400 mls/hr IV NOW STA Stop: 03/19/21 19:33 Last Infusion: 03/19/21 19:50 Dose: 0 mls/hr Documented by: [id number] Admin: 03/19/21 19:32 Dose: 400 mls/hr Documented by: [id number] Medical Decision Making Differential Diagnosis CSF leak, postop complication, infection, dehydration, electrolyte or metabolic abnormality, Covid Medical Records Attestation: I reviewed the patient's medical records. Home Medications Current Medication List: was personally reviewed by me Laboratory Data Attestation: I reviewed the patient's lab results. Result diagrams: 03/19/21 19:06 03/19/21 19:06 Lab Results 03/19/21 03/19/21 Range/Units 19:06 19:06 WBC 20.66 H (4.8-10.8) K/uL RBC 3.73 L (4.2-5.4) M/uL Hgb 11.4 L (12.0-16.0) g/dL Hct 33.9 L (37-47) % MCV 90.9 (80-100) fL MCH 30.6 (25-34) pg MCHC 33.6 (32-36) g/dL RDW Std Deviation 43.1 (36.4-46.3) fL RDW Coeff of Javier 13.0 (11.5-14.5) % Plt Count 289 (130-400) K/uL MPV 9.0 (7.4-10.4) fL Immature Gran % (Auto) 1.2 % Neut % (Auto) 73.8 % Lymph % (Auto) 13.6 % [place] % (Auto) 10.6 % Eos % (Auto) 0.7 % Baso % (Auto) 0.1 % Neut # (Auto) 15.25 H (1.4-6.5) K/uL Lymph # (Auto) 2.82 (1.2-3.4) K/uL [place] # (Auto) 2.19 H (0.11-0.59) K/uL Eos # (Auto) 0.14 (0-0.5) K/uL Baso # (Auto) 0.02 (0-0.2) K/uL Immature Gran # (Auto) 0.24 H (0.00-0.02) K/uL Sodium 132 L (136-145) mmol/L Potassium 3.5 (3.5-5.1) mmol/L Chloride 98 (98-107) mmol/L Carbon Dioxide 27 (21-32) mmol/L Anion Gap 7.0 (3-11) BUN 10 (7-18) mg/dl Creatinine 0.60 (0.6-1.2) mg/dl Est Cr Clr Drug Dosing 160.2 ml/min Est GFR ( Amer) 124.0 ml/min Est GFR (Non-Af Amer) 107.0 ml/min BUN/Creatinine Ratio 17.2 (10-20) Glucose 151 H (70-99) mg/dl Calcium 8.8 (8.5-10.1) mg/dl Total Bilirubin 0.4 (0.2-1) mg/dl AST 18 (15-37) U/L ALT 29 (12-78) Alkaline Phosphatase 78 (45-117) U/L Total Protein 7.4 (6.4-8.2) gm/dl Albumin 2.6 L (3.4-5.0) gm/dl Globulin 4.8 H (2.5-4.0) gm/dl Albumin/Globulin Ratio 0.5 L (0.9-2) Lipase 2246 H (73-393) U/L [facility] Narrative This patient comes in as described above. She has a headache and she is status post spinal surgery. The thought was that she has a CSF leak. I did talk to EMS and gave the medical command for IV fentanyl 50 mcg which she received x2. She did have a prolonged transport as she is from [facility]. Upon exam arrival she is complained of a headache but has stable vital signs. She has no neurologic deficits the wound is healing well. IV access was established she washydrated with 1 L IV normal saline bolus. She was reassessed. I did discuss case with Dr. Rice. Her white count is elevated however its been elevated and he has attributed this to the steroids. She has no fever. I did add blood cultures. She is nursing of electrolyte or metabolic abnormalities. Dr. Rice is going to admit her for pain management and does believe this is from a spinal CSF leak. She did require additional IV medications including IV Dilaudid x2 as well as IV acetaminophen in the emergency department. She will be admitted for further pain management Continuous cardiac monitoring: Orders placed in EMR for continuous cardiac monitoring, she was noted to be normal sinus rhythm with a rate of 60 Impression & Plan Headache, Cerebrospinal fluid leak, Hx of spinal surgery, Dehydration Discharge Plan Visit Data Chief Complaint: Head Pain Stated Complaint: spinal fluid leak ED Provider: Nate Logan Discharge Problem: Headache, Cerebrospinal fluid leak, Hx of spinal surgery, Dehydration Patient Disposition: Admitted As Inpatient Discharge Problem: Headache Qualifiers: Headache type: other headache syndrome Qualified Code(s): G44.89 - Other headache syndrome
[2021-03-19 19:14] LABS: Basophils # (auto) 0.02 K/uL (0-0.2); Basophils % (auto) 0.1 %; Eosinophils # (auto) 0.14 K/uL (0-0.5); Eosinophils % (auto) 0.7 %; Hematocrit (blood only) 33.9 % (37-47); Hemoglobin 11.4 g/dL (12.0-16.0); Immature Granulocytes # (auto) 0.24 K/uL (0.00-0.02); Immature Granulocytes % (auto) 1.2 %; Lymphocytes # (auto) 2.82 K/uL (1.2-3.4); Lymphocytes % (auto) 13.6 %; Mean Corpuscular Hemoglobin 30.6 pg (25-34); Mean Corpuscular Hgb Conc 33.6 g/dL (32-36); Mean Corpuscular Volume 90.9 fL (80-100); Monocytes # (auto) 2.19 K/uL (0.11-0.59); Monocytes % (auto) 10.6 %; Neutrophils # (auto) 15.25 K/uL (1.4-6.5); Neutrophils % (auto) 73.8 %; Platelet Count 289 K/uL (130-400); RDW Standard Deviation 43.1 fL (36.4-46.3); Red Blood Count 3.73 M/uL (4.2-5.4); White Blood Count 20.66 K/uL (4.8-10.8)
[2021-03-19] MEDS ORDERED: HYDROmorphone INJ 1 MG/ML SYRINGE IV STA ×2 (19:19→22:10)
[2021-03-19] MEDS ORDERED: ACETAMINOPHEN 1,000 MG/100 ML VIAL IV STA (19:19)
[2021-03-19 19:32] LABS: Albumin Level 2.6 gm/dl (3.4-5.0); BUN Creatinine Ratio 17.2 (10-20); Calcium 8.8 mg/dl (8.5-10.1); Creatinine Clr Calc Pharmacy 160.2 ml/min; Potassium 3.5 mmol/L (3.5-5.1)
[2021-03-19 19:35] LABS: Albumin Globulin Ratio 0.5 (0.9-2); Bilirubin,Total 0.4 mg/dl (0.2-1); Globulin 4.8 gm/dl (2.5-4.0); Total Protein 7.4 gm/dl (6.4-8.2)
[2021-03-20] MEDS ORDERED: PROMETHAZINE HCL 12.5 MG in SODIUM CHLORIDE 0.9% 50 ML IV PRN (00:01)
[2021-03-20] MEDS ORDERED: LORazepam 0.5 MG TAB PO PRN (00:01)
[2021-03-20] MEDS ORDERED: traMADol HCL 50 MG TABLET PO PRN (00:01)
[2021-03-20] MEDS ORDERED: MONTELUKAST SODIUM 10 MG TABLET PO PRN (00:01)
[2021-03-20] MEDS ORDERED: ALBUTEROL 0.083% NEBU SOLN 3 ML VIAL INH PRN (00:01)
[2021-03-20] MEDS ORDERED: NALOXONE HCL 0.4 MG/1 ML VIAL/CARP IV PRN (00:01)
[2021-03-20] MEDS ORDERED: METOCLOPRAMIDE HCL INJ 5 MG/ML 2 ML VIAL IV PRN (00:01)
[2021-03-20] MEDS ORDERED: hydrOXYzine HCl 25 MG TAB PO PRN (00:01)
[2021-03-20] MEDS ORDERED: LORazepam 0.5 MG/1 ML VIAL IV PRN (00:01)
[2021-03-20] MEDS ORDERED: ACETAMINOPHEN 1,000 MG/100 ML VIAL IV PRN (00:01)
[2021-03-20] MEDS ORDERED: diphenhydrAMINE Capsule 25 MG CAP PO PRN (00:01)
[2021-03-20] MEDS ORDERED: MAGNESIUM HYDROXIDE SUSP 30 ML UDC PO PRN (00:01)
[2021-03-20] MEDS ORDERED: oxyCODONE HCL IR 5 MG TAB (IMMEDIATE RELEASE) PO PRN (00:01)
[2021-03-20] MEDS ORDERED: SOD PHOSPHATE/SOD BIPHOSPHATE ENEMA 132 ML BTL PR PRN (00:01)
[2021-03-20] MEDS ORDERED: ALUMINUM/MAGNESIUM SUSP 30 ML UDC PO PRN (00:01)
[2021-03-20] MEDS ORDERED: HYDROmorphone INJ 0.5 MG/0.5 ML SYR IV PRN (00:01)
[2021-03-20] MEDS: LACTATED RINGER'S 1,000 ML IV SCH ×4 (00:47→18:28)
[2021-03-20] MEDS: HYDROmorphone INJ 1 MG/ML SYRINGE IV PRN ×7 (00:49→20:59)
[2021-03-20] MEDS: ONDANSETRON INJ 2 MG/ML 2 ML VIAL IV PRN ×2 (01:48→06:01)
[2021-03-20 01:54] LABS: Magnesium 1.8 mg/dl (1.8-2.4); Thyroid Stimulating Hormone 0.651 uIu/ml (0.300-4.500)
[2021-03-20] MEDS ORDERED: PROMETHAZINE HCL 12.5 MG in SODIUM CHLORIDE 0.9% 50 ML IV STA (01:56)
--- NOTE | 2021-03-20 01:59 | Hospitalist Consultation ---
Date of Consultation March 20, 2021 Assessment & Plan (1) Headache: Final Assessment and Recommendations as follows : Postop headache History recent spinal surgery Hyponatremia secondary to decreased p.o. intake from illness bronchial asthma, not in acute exacerbation GUILLERMO (CPAP noncompliance) prediabetes, hemoglobin A1c of 5.21 February 2021 Asymptomatic hyperlipasemia ongoing tobacco abuse Management of spinal headache as per Orthopedics Patient currently n.p.o. in anticipation of procedural intervention in a.m. IVF, hyponatremia work-up Nicotine patch as ordered by orthopedics DVT prophylaxis. SCDs as per Orthopedics admission orders. Thank you very much for this consultation. Dr. Machuca will follow patient's progress. Text document was generated using [employer] voice recognition software. It may contain grammatical or spelling errors. Kindly contact undersigned for clarification of any documentation item in question. History of Present Illness Reason for Consultation: Medical management Requesting Physician: Dr. Rice Attending Physician: Alejandro Rice, History of Present Illness PCP : Dr. Oscar History obtained from patient and records. Medical history significant for bronchial asthma, GUILLERMO status post surgery (CPAP noncompliance), prediabetes, L SS status post recent surgery, ongoing tobacco abuse. Last confinement March 15-2020 under Orthopedics spine service for LSS with spondylolisthesis status post decompression surgery. Post procedure patient claims she had tolerable frontal headache symptoms. At home, achy headache symptoms worsen with radiation to her neck and upper shoulders. Somewhat worsened by motion. No fever, no chills. No chest pain, no S OB. Poor appetite at home. Patient surgeon recommended she lie down flat for possible spinal headache. Patient consulted ER yesterday for worsening symptoms along with nausea symptoms. Patient currently admitted under Orthopedics spine service. Subsequent emesis at the floor without abdominal pain complaints. Medical History as above Surgical History : Back surgery, dental surgery, tonsillectomy, uvulopalatopharyngoplasty, breast reduction, partial hysterectomy, salpingectomy Family History : DM, heart disease, stroke Personal/Social history : 1/2 pack daily, occasional EtOH intake, currently unemployed Allergies Allergy/AdvReac Type Severity Reaction Status Date / Time adhesive Allergy Mild Irritation Verified 03/19/21 19:34 with tape doxycycline AdvReac Intermediate dizziness, Verified 03/19/21 19:34 blurred vision Sulfa (Sulfonamide AdvReac Intermediate dizziness, Verified 03/19/21 19:34 Antibiotics) blurred vision Home Medications Medication Instructions Recorded Confirmed Type montelukast 10 mg tablet 10 mg PO HS PRN 08/18/20 03/19/21 History (Singulair) Auto Titrating CPAP #1 ea 12/23/20 Rx albuterol 90 mcg/actuation aerosol 90 mcg INHALATION DIRECTED 03/15/21 03/19/21 History inhaler albuterol sulfate 2.5 mg INHALATION Q4H PRN 03/15/21 03/19/21 History oxycodone 5 mg tablet 5 mg PO Q6H PRN #30 tab 03/16/21 03/19/21 Rx tramadol 50 mg tablet 50 mg PO Q6H PRN #30 tab 03/16/21 03/19/21 Rx nicotine 7 mg/24 hr daily 7 mg TRANSDERMAL QAM #14 ea 03/18/21 03/19/21 Rx transdermal patch acetaminophen 500 mg tablet 1,500 mg PO Q8 PRN 03/19/21 03/19/21 History (Tylenol Extra Strength) Patient History Medical History Arthritis Back Hx of diarrhea Controlled with sacral nerve implant- Profyle (patient states she will bring remote AM DOS per nursing assessment/OR made aware) Morbid obesity BMI 41 Pre-diabetes Previously taking Metformin Seasonal allergies Sleep apnea CPAP (not using) Surgical History History of partial hysterectomy History of salpingectomy 2014 History of surgery Sacral nerve implant History of tonsillectomy and adenoidectomy Tonsillectomy Adenoidectomy, Uvulopalatoplasty, Somnoplasty Tongue Base (03/21/19): Grade view 2, Glidescope #3, ETT 7.0 at [facility] Hx of bilateral breast reduction surgery Hx of colonoscopy with polypectomy Family History Grandfather Heart disease Stroke Uncle Colon cancer Cancer Grandmother Heart disease Father Asthma Mother Family history of diabetes mellitus Other No family history of adverse response to anesthesia No family history of allergies No family history of bleeding disorder Denies family history of Hearing loss Hypertension Social History Smoking Status: Current every day smoker Tobacco Type: Cigarettes Age Started Using Tobacco: 16; packs per day: 1; Cigarettes Per Day: 20; Second Hand Exposure: No; Do You Dip or Chew Tobacco: No; Tobacco Cessation Education Requested by Patient: No Hx Alcohol Use: No Hx Substance Use: No Preferred Language: Fijian Communication Ability: Effective [employer] Fitness Instructor Required: No Beliefs That Will Affect Care: None marital status: Single Current Living Situation: Significant Other 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 occupational status: 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 How many Children do You have: 0 Other Information That Helps Us Care for You: No Feels Safe at Home: Yes Safety Concerns: Feels Safe At This Time Assistive Devices: Glasses, Oxygen - Continuous and Walker Review of Systems Review of Systems: As per HPI, all 10 systems reviewed, all other ROS negative Physical Exam Physical Exam: GENERAL: uncomfortable, morbidly obese, no respiratory distress SKIN: Normal color, warm HEENT: Greer palpebral conjunctivae, no ptosis, dry buccal mucosa NECK : Some limitation in neck motion, short neck, no tenderness CHEST : Decreased breath sounds, no tenderness HEART : RRR, no obvious murmurs ABDOMEN: Some distention, nontender EXTREMITIES : Minimal LE swelling, no LE tenderness, no other conspicuous deformities noted NEUROLOGIC : Coherent, no facial asymmetry, no other gross focality Results & Data Results & Data ([facility]) Vital Signs (Past 12 Hours) Vital Signs Temp Pulse Pulse Resp BP BP Pulse Ox 03/20/21 00:01 36.6 C 80 18 146/80 H 97 03/20/21 00:00 36.6 C 80 18 146/80 H 97 03/19/21 21:00 60 20 168/80 H 97 03/19/21 19:14 83 83 20 155/90 H 94 03/19/21 18:51 37 C 83 20 155/90 H 94 Laboratory Results Laboratory Results WBC 20.66 K/uL (4.8-10.8) H 03/19/21 19:06 RBC 3.73 M/uL (4.2-5.4) L 03/19/21 19:06 Hgb 11.4 g/dL (12.0-16.0) L 03/19/21 19:06 Hct 33.9 % (37-47) L 03/19/21 19:06 MCV 90.9 fL (80-100) 03/19/21 19:06 MCH 30.6 pg (25-34) 03/19/21 19:06 MCHC 33.6 g/dL (32-36) 03/19/21 19:06 RDW Std Deviation 43.1 fL (36.4-46.3) 03/19/21 19:06 RDW Coeff of Javier 13.0 % (11.5-14.5) 03/19/21 19:06 Plt Count 289 K/uL (130-400) 03/19/21 19:06 MPV 9.0 fL (7.4-10.4) 03/19/21 19:06 Immature Gran % (Auto) 1.2 % 03/19/21 19:06 Neut % (Auto) 73.8 % 03/19/21 19:06 Lymph % (Auto) 13.6 % 03/19/21 19:06 [place] % (Auto) 10.6 % 03/19/21 19:06 Eos % (Auto) 0.7 % 03/19/21 19:06 Baso % (Auto) 0.1 % 03/19/21 19:06 Neut # (Auto) 15.25 K/uL (1.4-6.5) H 03/19/21 19:06 Lymph # (Auto) 2.82 K/uL (1.2-3.4) 03/19/21 19:06 [place] # (Auto) 2.19 K/uL (0.11-0.59) H 03/19/21 19:06 Eos # (Auto) 0.14 K/uL (0-0.5) 03/19/21 19:06 Baso # (Auto) 0.02 K/uL (0-0.2) 03/19/21 19:06 Immature Gran # (Auto) 0.24 K/uL (0.00-0.02) H 03/19/21 19:06 Sodium 132 mmol/L (136-145) L 03/19/21 19:06 Potassium 3.5 mmol/L (3.5-5.1) 03/19/21 19:06 Chloride 98 mmol/L (98-107) 03/19/21 19:06 Carbon Dioxide 27 mmol/L (21-32) 03/19/21 19:06 Anion Gap 7.0 (3-11) 03/19/21 19:06 BUN 10 mg/dl (7-18) 03/19/21 19:06 Creatinine 0.60 mg/dl (0.6-1.2) 03/19/21 19:06 Est Cr Clr Drug Dosing 160.2 ml/min 03/19/21 19:06 Est GFR ( Amer) 124.0 ml/min 03/19/21 19:06 Est GFR (Non-Af Amer) 107.0 ml/min 03/19/21 19:06 BUN/Creatinine Ratio 17.2 (10-20) 03/19/21 19:06 Glucose 151 mg/dl (70-99) H 03/19/21 19:06 Calcium 8.8 mg/dl (8.5-10.1) 03/19/21 19:06 Magnesium 1.8 mg/dl (1.8-2.4) 03/19/21 19:06 Total Bilirubin 0.4 mg/dl (0.2-1) 03/19/21 19:06 AST 18 U/L (15-37) 03/19/21 19:06 ALT 29 (12-78) 03/19/21 19:06 Alkaline Phosphatase 78 U/L (45-117) 03/19/21 19:06 Total Protein 7.4 gm/dl (6.4-8.2) 03/19/21 19:06 Albumin 2.6 gm/dl (3.4-5.0) L 03/19/21 19:06 Globulin 4.8 gm/dl (2.5-4.0) H 03/19/21 19:06 Albumin/Globulin Ratio 0.5 (0.9-2) L 03/19/21 19:06 Lipase 2246 U/L (73-393) H 03/19/21 19:06 TSH 0.651 uIu/ml (0.300-4.500) 03/19/21 19:06 SARS-CoV-2, RNA, NAAT NEGATIVE (NEGATIVE) 03/19/21 19:36 (1) Headache Headache type: other headache syndrome Qualified Code(s): G44.89 - Other headache syndrome
[2021-03-20] MEDS: NICOTINE 14 MG/24 HR PATCH TD SCH (07:54)
[2021-03-20 10:32] LABS: Hematocrit (blood only) 34.1 % (37-47); Hemoglobin 11.1 g/dL (12.0-16.0); Mean Corpuscular Hemoglobin 30.2 pg (25-34); Mean Corpuscular Hgb Conc 32.6 g/dL (32-36); Mean Corpuscular Volume 92.7 fL (80-100); Mean Platelet Volume 9.1 fL (7.4-10.4); Platelet Count 318 K/uL (130-400); RDW Coefficient of Variation 13.1 % (11.5-14.5); RDW Standard Deviation 44.6 fL (36.4-46.3); Red Blood Count 3.68 M/uL (4.2-5.4)
[2021-03-20] MEDS ORDERED: SODIUM CHLORIDE 0.9% 1000ML 1,000 ML IV ONE (10:39)
[2021-03-20] MEDS ORDERED: SODIUM CHLORIDE 0.9% 1000ML 1,000 ML IV SCH (10:39)
--- NOTE | 2021-03-20 10:43 | History & Physical Report ---
Date of Service March 20, 2021 Assessment & Plan (1) Cerebrospinal fluid leak: Plan: At this time concerned that she developed a postoperative CSF leak. We are obviously ruling out infection. I will continue to hydrate the patient request that she remain head of bed flat and discussed even in reverse Trendelenburg position to help with her discomfort. If she fails to improve with hydration and bedrest I may consider exploration of the operative bed. Admission and Anticipated Discharge Date Admission Date: March 19, 2021 History of Present Illness Chief Complaint: Headaches and chills Primary Care Provider: Mary Grace Oscar MD This is a 50-year-old female known to me the status post lumbar decompression fusion. She undergone surgery last week tolerated the procedure well and was discharged home postop day 3 without issue. She is called me yesterday with concerns of chills and headaches with pain into the back of her neck and shoulders. She denies any significant back pain or leg pain. She ultimately was taken to emergency room and subsequently admitted. Allergies Allergy/AdvReac Type Severity Reaction Status Date / Time adhesive Allergy Mild Irritation Verified 03/19/21 19:34 with tape doxycycline AdvReac Intermediate dizziness, Verified 03/19/21 19:34 blurred vision Sulfa (Sulfonamide AdvReac Intermediate dizziness, Verified 03/19/21 19:34 Antibiotics) blurred vision Home Medications Medication Instructions Recorded Confirmed Type montelukast 10 mg tablet 10 mg PO HS PRN 08/18/20 03/19/21 History (Ricciir) Auto Titrating CPAP #1 ea 12/23/20 Rx albuterol 90 mcg/actuation aerosol 90 mcg INHALATION DIRECTED 03/15/21 03/19/21 History inhaler albuterol sulfate 2.5 mg INHALATION Q4H PRN 03/15/21 03/19/21 History oxycodone 5 mg tablet 5 mg PO Q6H PRN #30 tab 03/16/21 03/19/21 Rx tramadol 50 mg tablet 50 mg PO Q6H PRN #30 tab 03/16/21 03/19/21 Rx nicotine 7 mg/24 hr daily 7 mg TRANSDERMAL QAM #14 ea 03/18/21 03/19/21 Rx transdermal patch acetaminophen 500 mg tablet 1,500 mg PO Q8 PRN 03/19/21 03/19/21 History (Tylenol Extra Strength) Past Med/Surg History Medical History Arthritis Back Hx of diarrhea Controlled with sacral nerve implant- Medtronic (patient states she will bring remote AM DOS per nursing assessment/OR made aware) Morbid obesity BMI 41 Pre-diabetes Previously taking Metformin Seasonal allergies Sleep apnea CPAP (not using) Surgical History History of partial hysterectomy History of salpingectomy 2014 History of surgery Sacral nerve implant History of tonsillectomy and adenoidectomy Tonsillectomy Adenoidectomy, Uvulopalatoplasty, Somnoplasty Tongue Base (): Grade view 2, Glidescope #3, ETT 7.0 at [facility] Hx of bilateral breast reduction surgery Hx of colonoscopy with polypectomy Family History Grandfather Heart disease Stroke Uncle Colon cancer Cancer Grandmother Heart disease Father Asthma Mother Family history of diabetes mellitus Other No family history of adverse response to anesthesia No family history of allergies No family history of bleeding disorder Denies family history of Hearing loss Hypertension Social History Smoking Status: Current every day smoker Tobacco Type: Cigarettes Age Started Using Tobacco: 16; packs per day: 1; Cigarettes Per Day: 20; Second Hand Exposure: No; Do You Dip or Chew Tobacco: No; Tobacco Cessation Education Requested by Patient: No Hx Alcohol Use: No Hx Substance Use: No Preferred Language: Guatemalan Communication Ability: Effective Helmet Hat Brim Cutter Required: No Beliefs That Will Affect Care: None marital status: Single Current Living Situation: Significant Other 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 She is neurologically intact to testing lower extremities. Incision is clean dry and intact with no erythema or drainage appreciable. Is nontender to palpation. Results & Data ([facility]) Vital Signs (Past 12 Hours) Vital Signs Temp Pulse Resp BP Pulse Ox 03/20/21 07:32 37.0 C 69 18 147/78 H 93 03/20/21 00:01 36.6 C 80 18 146/80 H 97 03/20/21 00:00 36.6 C 80 18 146/80 H 97 Code Status & VTE Plan VTE Prophylaxis Plan VTE Prophylaxis will be ordered: Yes
[2021-03-20] MEDS: diazePAM 5 MG TABLET PO PRN ×2 (10:48→19:36)
[2021-03-20 10:56] LABS: ALC (manual) 2.36 K/uL (1.2-3.4); ANC (manual) 15.05 K/uL (1.4-6.5); Lymphocytes # (manual) 2.36 K/uL (1.2-3.4); Lymphocytes % (manual) 13.2 %; Metamyelocytes # (manual) 0.16 K/uL (0-0); Metamyelocytes % (manual) 0.9 %; Monocytes # (manual) 0.32 K/uL (0.11-0.59); Monocytes % (manual) 1.8 %; Neutrophils # (manual) 15.05 K/uL (1.4-6.5); Neutrophils % (manual) 84.1 %
[2021-03-20 11:52] LABS: Creatinine Clr Calc Pharmacy 158.3 ml/min; Est GFR (African American) 122.1 ml/min; Est GFR (Non-African American) 105.3 ml/min; Potassium 4.3 mmol/L (3.5-5.1)
--- NOTE | 2021-03-20 13:04 | Hospitalist Progress Note ---
Date of Service March 20, 2021 Assessment & Plan Admission and Anticipated Discharge Date Admission Date: March 19, 2021 Subjective Patient admitted early this morning, due to headache, neck pain, recent lumbar spinal surgery. Patient was recently discharged, March 18, at that time patient had some mild headache, however without any neurological deficits/signs, and at that time patient felt that maybe this is from nicotine withdrawal and nicotine patch was ordered. She had no fevers or chills, or any other concerning symptoms. Currently she is lying in bed, flat on her back, and is very uncomfortable. She has subjective fevers and chills, however no elevated temperature was documented at home or in the hospital. She is able to move her upper and lower extremities, and there is no sensory deficit. She is able to answer questions appropriately, and has no vision changes either. Blood cultures were obtained in the ED, currently pending. She was also found hyponatremic. Discussed with orthopedic surgeon, Dr. Rice, concern for CSF leak. For now we will have patient rehydrate, and lay flat on her back, and will reassess within 24 hours. If not improved, may need exploration of operative bed. CBC and BMP ordered, will follow sodium level. Thank you for this consultation, will continue to follow-up closely. Please reach out if we can be of any further assistance at this time. MD Sven Results & Data Results & Data ([facility]) Vital Signs (Past 12 Hours) Vital Signs Temp Pulse Resp BP Pulse Ox 03/20/21 07:32 37.0 C 69 18 147/78 H 93
[2021-03-20] MEDS: ONDANSETRON 4 MG OD TAB PO PRN ×2 (17:32→23:51)
[2021-03-20 19:50] LABS: Calcium 8.6 mg/dl (8.5-10.1); Creatinine Clr Calc Pharmacy 188.2 ml/min; Est GFR (African American) 129.2 ml/min; Est GFR (Non-African American) 111.5 ml/min; Potassium 4.6 mmol/L (3.5-5.1)
[2021-03-21] MEDS: LACTATED RINGER'S 1,000 ML IV SCH ×4 (01:02→19:34)
[2021-03-21] MEDS: HYDROmorphone INJ 1 MG/ML SYRINGE IV PRN (01:07)
[2021-03-21 01:24] LABS: Appearance Urine Clear (Clear); Bacteria Urine Automated Negative (Negative); Bilirubin Urine Negative (Negative); Blood Urine 1+ (Negative); Color Urine Yellow; Epithelial Cell Urine Auto 20-30 /lpf (0-5); Glucose Urine UA Negative (Negative); Ketones Urine 1+ (Negative); Leukocyte Esterase Urine Negative (Negative); Nitrite Urine Negative (Negative); Protein Urine 2+ (Negative); Specific Gravity Urine 1.023 (1.000-1.030); Urobilinogen Urine Negative (Negative)
[2021-03-21 07:24] LABS: Hematocrit (blood only) 36.3 % (37-47); Mean Corpuscular Hemoglobin 30.1 pg (25-34); Mean Corpuscular Hgb Conc 33.1 g/dL (32-36); Mean Platelet Volume 8.9 fL (7.4-10.4); Platelet Count 351 K/uL (130-400); RDW Coefficient of Variation 12.9 % (11.5-14.5); RDW Standard Deviation 43.4 fL (36.4-46.3); Red Blood Count 3.99 M/uL (4.2-5.4); White Blood Count 22.19 K/uL (4.8-10.8)
[2021-03-21] MEDS: NICOTINE 14 MG/24 HR PATCH TD SCH (07:28)
[2021-03-21] MEDS ORDERED: fentaNYL citrate 100 MCG/2 ML VIAL ONE (08:51)
[2021-03-21 09:47] LABS: BUN Creatinine Ratio 18.1 (10-20); Calcium 9.3 mg/dl (8.5-10.1); Creatinine Clr Calc Pharmacy 199.5 ml/min; Est GFR (African American) 131.7 ml/min; Est GFR (Non-African American) 113.7 ml/min
[2021-03-21 09:49] LABS: Magnesium 2.1 mg/dl (1.8-2.4); Phosphorus 2.9 mg/dl (2.5-4.9)
[2021-03-21] MEDS ORDERED: DEXAMETHASONE SOD INJ 4 MG/ML VIAL ONE (10:00)
[2021-03-21] MEDS ORDERED: ONDANSETRON INJ 2 MG/ML 2 ML VIAL ONE (10:00)
[2021-03-21] MEDS ORDERED: ROCURONIUM BROMIDE 10 MG/ML 5 ML VIAL IV ONE (10:00)
[2021-03-21] MEDS ORDERED: GLYCOPYRROLATE 0.2 MG/ML VIAL ONE (10:00)
[2021-03-21] MEDS ORDERED: PROPOFOL IV EMULSION 10 MG/ML 20 ML VIAL IV ONE (10:00)
[2021-03-21] MEDS ORDERED: LARYING-O-JET KIT (LTA) ONE (10:00)
[2021-03-21] MEDS ORDERED: LIDOCAINE 2% 2 ML VIAL/AMP(20MG/ML) INFIL ONE (10:00)
[2021-03-21] MEDS ORDERED: NEOSTIGMINE METHYLSULFATE 1 MG/ML 10ML VIAL ONE (10:00)
[2021-03-21] MEDS ORDERED: SUCCINYLCHOLINE CHLORIDE 20 MG/ML 10 ML VIAL IV ONE (10:00)
--- NOTE | 2021-03-21 10:18 | History & Physical Bridge Note ---
Date of Service March 21, 2021 History & Physical Bridge Note I have examined the patient, reviewed the History & Physical and in the interval since the performance of the History & Physical I have noted the following changes of clinical significance: Patient has been at bedrest for over 24 hours well-hydrated continues to have severe headaches with nuchal rigidity. Any attempt to sit upright exacerbates her pain. Subsequently recommending emergent repair of lumbar durotomy
[2021-03-21] MEDS ORDERED: BUPIVACAINE 0.5 % 5 MG/1 ML MPF 30ML VIAL ONE (10:25)
[2021-03-21] MEDS ORDERED: EPINEPHrine INJ 1 MG/ML AMP ONE (10:25)
[2021-03-21] MEDS ORDERED: ALBUT/IPRATROP 3MG/0.5MG NEB 3 ML VIAL NEB STA (10:25)
[2021-03-21] MEDS ORDERED: ONDANSETRON INJ 2 MG/ML 2 ML VIAL IV PRN ×2 (10:27→13:19)
[2021-03-21] MEDS ORDERED: fentaNYL citrate 100 MCG/2 ML VIAL IV PRN (10:27)
[2021-03-21] MEDS ORDERED: ATROPINE SULFATE 0.1 MG/ML 10ML SYR IV PRN (10:27)
[2021-03-21] MEDS ORDERED: HYDROmorphone INJ 2 MG/ML SYR/VIAL IV PRN (10:27)
[2021-03-21] MEDS ORDERED: ePHEDrine sulfate 50 MG/ML AMP IV PRN (10:27)
--- NOTE | 2021-03-21 10:30 | Anesthesiology Consultation ---
Date of Service March 21, 2021 Assessment & Plan ASA ASA3 Proposed Anesthesia Anesthesia Type: General Risk / Benefits Reviewed With: PT / POA / Parent / Guardian, Accepts Plan and Informed Consent Obtained History Surgery Operation Date: 03/21/21 11:30 Proposed Procedures p Repair of Durotomy - Alejandro Rice, Height/Weight Height: 5 ft 8 in Weight: 136.3 kg Allergies Allergy/AdvReac Type Severity Reaction Status Date / Time adhesive Allergy Mild Irritation Verified 03/21/21 10:02 with tape doxycycline AdvReac Intermediate dizziness, Verified 03/21/21 10:02 blurred vision Sulfa (Sulfonamide AdvReac Intermediate dizziness, Verified 03/21/21 10:02 Antibiotics) blurred vision Medications Home Medications Medication Instructions Recorded Confirmed Last Taken montelukast 10 mg tablet 10 mg PO HS PRN 08/18/20 03/19/21 Unknown (Singulair) Auto Titrating CPAP #1 ea 12/23/20 Unknown albuterol 90 mcg/actuation aerosol 90 mcg INHALATION DIRECTED 03/15/2103/19 Unknown inhaler albuterol sulfate 2.5 mg INHALATION Q4H PRN 03/15/21 03/19/21 Unknown oxycodone 5 mg tablet 5 mg PO Q6H PRN #30 tab 03/16/21 03/19/21 03/19/21 tramadol 50 mg tablet 50 mg PO Q6H PRN #30 tab 03/16/21 03/19/21 Unknown nicotine 7 mg/24 hr daily 7 mg TRANSDERMAL QAM #14 ea 03/18/21 03/19/21 Unknown transdermal patch acetaminophen 500 mg tablet 1,500 mg PO Q8 PRN 03/19/21 03/19/21 Unknown (Tylenol Extra Strength) Active Medications Generic Name Dose Route Start Last Admin Trade Name Freq PRN Reason Stop Dose Admin Diazepam 5 mg 03/20/21 00:01 03/20/21 19:36 Diazepam 5 Mg Tablet PO 04/19/21 00:00 5 mg Q8 PRN Administration Breakthrough Pain Hydromorphone HCl 1 mg 03/20/21 00:01 03/21/21 01:07 Hydromorphone Inj 1 Mg/Ml Syringe IV 04/03/21 00:00 1 mg Q3H PRN Administration severe pain (scale 7-10) Lactated Ringer's 1,000 mls @ 150 mls/hr 03/20/21 00:01 03/21/21 07:26 Lr IV 04/19/21 00:00 150 mls/hr .Q6H40M MARY Administration Acetaminophen 1,000 mg in 100 mls @ 400 mls/hr 03/20/21 00:01 03/21/21 04:01 Ofirmev IV 03/23/21 00:00 Infused Q8H PRN Infusion Pain Rating 1-3 & Pre PT Metoclopramide HCl 10 mg 03/20/21 00:01 03/20/21 19:36 Metoclopramide Hcl Inj 5 Mg/Ml 2 Ml Vial IV 04/19/21 00:00 10 mg Q6H PRN Administration Nausea &/or Vomiting Miscellaneous 1 ea 03/20/21 08:59 03/21/21 07:28 Remove Nicoderm Patch N/A 04/19/21 08:58 1 ea DAILY@0859 MARY Administration Nicotine 7 mg 03/20/21 09:00 03/21/21 07:28 Nicotine 14 Mg/24 Hr Patch TD 04/19/21 08:59 7 mg QAM MARY Administration Ondansetron HCl 4 mg 03/20/21 00:01 03/20/21 06:01 Ondansetron Inj 2 Mg/Ml 2 Ml Vial IV 04/19/21 00:00 4 mg Q6H PRN Administration Nausea &/or Vomiting Ondansetron HCl 4 mg 03/20/21 00:01 03/20/21 23:51 Ondansetron 4 Mg Od Tab PO 04/19/21 00:00 4 mg Q6H PRN Administration Nausea Tramadol HCl 50 - 100 mg 03/20/21 00:01 03/20/21 23:17 Tramadol Hcl 50 Mg Tablet PO 04/19/21 00:00 100 mg Q4H PRN Administration Moderate-Severe pain & Pre PT NPO Date Last Intake of Fluids: 03/18/21 Time Last Intake of Fluids: 16:00 Last Intake of Fluids Comment: ice chips only since then - none this am Date Last Intake of Solids: 03/18/21 Time Last Intake of Solids: 16:00 Past Medical History Medical History Arthritis Back Hx of diarrhea Controlled with sacral nerve implant- [employer] (patient states she will bring remote AM DOS per nursing assessment/OR made aware) Morbid obesity BMI 41 Pre-diabetes Previously taking Metformin Seasonal allergies Sleep apnea CPAP (not using) Exercise / Class Metabolic Activity II 4-5 Yardwork/Stairs/Walk up hill Past Family History Family History Grandfather Heart disease Stroke Uncle Colon cancer Cancer Grandmother Heart disease Father Asthma Mother Family history of diabetes mellitus Other No family history of adverse response to anesthesia No family history of allergies No family history of bleeding disorder Denies family history of Hearing loss Hypertension Past Surgical History Surgical History History of partial hysterectomy History of salpingectomy 2015 History of surgery Sacral nerve implant History of tonsillectomy and adenoidectomy Tonsillectomy Adenoidectomy, Uvulopalatoplasty, Somnoplasty Tongue Base (03/21/19): Grade view 2, Glidescope #3, ETT 7.0 at [facility] Hx of bilateral breast reduction surgery Hx of colonoscopy with polypectomy Past Anesthesia History No Hx of Anesthesia Complications and No Family Hx of Anesthesia Complications History of PONV No Hx of PONV and No Hx of Motion Sickness Social History Smoking Status: Current every day smoker tobacco type: cigarettes Smoking cigarettes per day: 20 Do You Dip or Chew Tobacco: No Hx Alcohol Use: No Hx Substance Use: No substance use type: does not use Review of Systems denies fever/cough/ colds/ chest pain/ SOB/ +guillermo denies GUILLERMO Physical Exam Vital Signs Last Vital Signs Temp 36.6 C 03/21/21 10:04 Pulse 79 03/21/21 10:04 Resp 20 03/21/21 10:04 BP 159/73 H 03/21/21 10:04 Pulse Ox 95 03/21/21 10:04 ENMT Mouth: no TMJ abnormality and no dentition abnormality Thyromental Distance: > or= 3.5 Finger Breadths Mallampati Class: II Neck neck extension not limited Respiratory normal respiratory effort; no respiratory distress Auscultation: lungs clear to auscultation bilaterally Cardiovascular Rate/Rhythm: regular rate and regular rhythm Neurologic moves all extremities Psychiatric Orientation: alert and oriented x 3 Testing Laboratory Results 03/21/21 07:01 03/21/21 07:01 Urine Color Yellow 03/21/21 01:15 Urine Appearance Clear (Clear) 03/21/21 01:15 Urine pH 6.0 (4.5-7.5) 03/21/21 01:15 Ur Specific [place] 1.023 (1.000-1.030) 03/21/21 01:15 Urine Protein 2+ (Negative) H 03/21/21 01:15 Urine Glucose (UA) Negative (Negative) 03/21/21 01:15 Urine Ketones 1+ (Negative) H 03/21/21 01:15 Urine Nitrite Negative (Negative) 03/21/21 01:15 Ur Leukocyte Esterase Negative (Negative) 03/21/21 01:15 Urine WBC (Auto) 1-5 /hpf (0-5) 03/21/21 01:15 Urine RBC (Auto) 5-10 /hpf (0-4) H 03/21/21 01:15 U Hyaline Cast (Auto) 1-5 /lpf (0-5) 03/21/21 01:15 U Epithel Cells (Auto) 20-30 /lpf (0-5) H 03/21/21 01:15 Urine Bacteria (Auto) Negative (Negative) 03/21/21 01:15 03/19/21 20:48 Aerobic Blood Culture - Preliminary Blood No growth in Aerobic bottle after 24 hours. Anaerobic Blood Culture - Preliminary No growth in Anaerobic bottle after 24 hours. 03/19/21 20:25 Aerobic Blood Culture - Preliminary Blood No growth in Aerobic bottle after 24 hours. Anaerobic Blood Culture - Preliminary No growth in Anaerobic bottle after 24 hours.
[2021-03-21] MEDS ORDERED: ceFAZolin 3000MG/72.5 ML BAG IV ONE (10:40)
[2021-03-21] MEDS ORDERED: SCOPOLAMINE 1 MG TDSY TD ONE ×2 (10:43→10:44)
[2021-03-21] MEDS ORDERED: SUGAMMADEX SODIUM 200 MG/2 ML VIAL IV ONE (11:31)
--- NOTE | 2021-03-21 11:55 | Operative Report ---
Post Operative Report Pre & Post Diagnosis Operation Date: 03/21/21 11:30 Pre-Op Diagnosis: lumbar durotomy Post-Op Diagnosis: lumbar durotomy I identified the patient and participated in the time-out.: Yes Procedure Operation Date: 03/21/21 11:30 Actual Procedures #1 revision laminectomy L3-L4. #2 repair of durotomy lumbar spine. Surgeon Alejandro Rice, DO Form Tamper None Estimated Blood Loss 25 Findings Consistent with Post-Op Diagnosis Specimens None Indications This is a 50-year-old female status post lumbar decompression fusion. She presents postop day 4 with severe headaches postural nature consistent with CSF leak. Despite 24 hours of bedrest she continued to have severe symptoms and I am recommending emergent exploration and repair of durotomy. Description of Procedure Patient was met with identified informed consent obtained. Patient was then taken to the operative suite underwent ablation placed in a prone position on the Panda table atop the Jony frame. All bony prominences well-padded eyes inspected to ensure no external pressure placed upon the. This point the lumbar spine was prepped and draped in a sterile fashion. Utilizing the previous incision site dissection was carried out down to and exposing the epidural space. Several 10 retractors placed. Large amount of fluid consistent with blood-tinged seroma identified and evacuated. Upon exploration I was able to identify an area along the shoulder over the right L4 nerve root that has evidence of a durotomy. This was up under the lamina. To access this region had perform a small revision laminotomy of L3 to adequately expose the dural deficit. It appears that a small bony spur may have caused the thinning and subsequent leak of the dura. Due to its location was unable to place a suture in this region but elected to place a DuraGen patch and DuraSeal over this region. No continuous CSF leak was noted. The areas and copiously irrigated and closed with subcutaneous Vicryl and 4 Monocryl for final skin closure. Steri-Strip sterile dressings placed. Patient waken taken back in stable condition. I attest to the content of the Intraoperative Record and any orders documented therein. Any exceptions are noted below.
--- NOTE | 2021-03-21 12:40 | Anesthesiology Progress Note ---
Date of Service March 21, 2021 Anesthesia Post Procedure Vital Signs Vital Signs: Temp Pulse Pulse Pulse Resp BP BP 03/21/21 10:38 79 20 03/21/21 10:04 36.6 C 79 20 159/73 H 03/21/21 07:20 36.8 C 77 18 170/85 H 03/21/21 00:26 36.5 C 03/20/21 22:14 37.7 C H 75 18 177/75 H 03/20/21 20:13 84 26 H 03/20/21 17:31 37.3 C 54 L 18 BP Pulse Ox 03/21/21 10:38 89 L 03/21/21 10:04 95 03/21/21 07:20 97 03/21/21 00:26 03/20/21 22:14 91 03/20/21 20:13 95 03/20/21 17:31 163/84 H Pain Intensity Head: Pain Intensity: 7 Transfer of Care Handoff Completed per policy Notes Mental Status: alert / awake / arousable and participated in evaluation Patient Amnestic to Procedure: Yes Nausea / Vomiting: adequately controlled Pain: adequately controlled Airway Patency, RR, SpO2: stable & adequate BP & HR: stable & adequate Hydration State: stable & adequate Anesthetic Complications: no major complications apparent and Pt Satisfied with anesthetic care Notes: pt recovered on cpap because of long standing barb hx
[2021-03-21] MEDS ORDERED: ONDANSETRON 4 MG OD TAB PO PRN (13:19)
[2021-03-21] MEDS ORDERED: ALUMINUM/MAGNESIUM SUSP 30 ML UDC PO PRN (13:19)
[2021-03-21] MEDS ORDERED: NALOXONE HCL 0.4 MG/1 ML VIAL/CARP IV PRN (13:19)
[2021-03-21] MEDS ORDERED: HYDROmorphone INJ 1 MG/ML SYRINGE IV PRN (13:19)
[2021-03-21] MEDS ORDERED: METOCLOPRAMIDE HCL INJ 5 MG/ML 2 ML VIAL IV PRN (13:19)
[2021-03-21] MEDS ORDERED: FAMOTIDINE 20 MG TAB PO PRN (13:19)
[2021-03-21] MEDS ORDERED: ACETAMINOPHEN 500 MG TAB PO PRN (13:19)
[2021-03-21] MEDS ORDERED: diphenhydrAMINE Capsule 25 MG CAP PO PRN (13:19)
[2021-03-21] MEDS ORDERED: DO NOT ADMINISTER FLU VACCINE PRN (13:19)
[2021-03-21] MEDS ORDERED: LORazepam 0.5 MG TAB PO PRN (13:19)
[2021-03-21] MEDS ORDERED: hydrOXYzine HCl 25 MG TAB PO PRN (13:19)
[2021-03-21] MEDS ORDERED: traMADol HCL 50 MG TABLET PO PRN (13:19)
[2021-03-21] MEDS ORDERED: SOD PHOSPHATE/SOD BIPHOSPHATE ENEMA 132 ML BTL PR PRN (13:19)
[2021-03-21] MEDS ORDERED: bisacodyL 10 MG SUPP PR PRN ×2 (13:19→19:30)
[2021-03-21] MEDS ORDERED: HYDROmorphone INJ 0.5 MG/0.5 ML SYR IV PRN (13:19)
[2021-03-21] MEDS ORDERED: DO NOT ADMINISTER PNEUMOCOCCAL VACCINE PRN (13:19)
[2021-03-21] MEDS ORDERED: ACETAMINOPHEN 1,000 MG/100 ML VIAL IV PRN (13:19)
[2021-03-21] MEDS ORDERED: LORazepam 0.5 MG/1 ML VIAL IV PRN (13:19)
[2021-03-21] MEDS ORDERED: LACTATED RINGER'S 1,000 ML IV SCH (13:19)
[2021-03-21] MEDS ORDERED: oxyCODONE HCL IR 5 MG TAB (IMMEDIATE RELEASE) PO PRN (13:19)
[2021-03-21] MEDS ORDERED: MAGNESIUM HYDROXIDE SUSP 30 ML UDC PO PRN (13:19)
[2021-03-21] MEDS ORDERED: PROMETHAZINE HCL 12.5 MG in SODIUM CHLORIDE 0.9% 50 ML IV PRN (13:19)
[2021-03-21] MEDS: KETOROLAC TROMETHAMINE 15 MG/ML VIAL IV SCH ×2 (14:21→20:45)
--- NOTE | 2021-03-21 15:13 | Hospitalist Progress Note ---
Date of Service March 21, 2021 Assessment & Plan (1) Headache: Plan: 2/2 post operative CSF leak (2) Cerebrospinal fluid leak: Plan: Intraoperatively a large amount of fluid consistent with blood-tinged seroma was identified and evacuated. Right lower extremity Doppler and there was a small bony spur that may have caused thinning and subsequent leak of the dura near the prior operative site. A DuraSeal was placed and no continuous CSF leak was noted. The area was irrigated and closed and she is now recovering. Continue management per orthopedic spine surgeon. (3) Hx of spinal surgery: Plan: Recent lumbar lumbar decompression and fusion by Dr. Rice on 03/15. Postoperative state. Activity restrictions and wound healing per Dr. Rice. (4) Sleep apnea: Plan: Continue CPAP while sleeping and at night especially with use of narcotics postoperatively. She is currently compliant with this. (5) Hyponatremia: Plan: Possibly secondary to dehydration and postoperative state with patient not feeling well. Urine studies pending. Currently on lactated Ringer's. Trend BMP in a.m. Postoperatively (6) Morbid obesity: Plan: Lifestyle changes recommended postoperatively as tolerated to increase lean muscle mass and decrease percent body fat overall. (7) DVT prophylaxis: Plan: SCDs postoperatively Full code Disposition-should remain in hospital pending clearance by orthopedic surgery. Daisy Jeff DO [facility] Hospitalist Admission and Anticipated Discharge Date Admission Date: March 19, 2021 Subjective 50-year-old female presented with postoperative complication of CSF spinal leak to recent lumbar decompression and fusion of the lower lumbar spine on 03/15. She went to the OR today for repair of lumbar durotomy by Dr. Rice. Postoperatively she is recovering well. She is laying supine with her CPAP in place. She is mentating normally and denying any nausea, pain or other issues at this time. Mom is in the room and we all discussed the care plan. Review of Systems Review of Systems: All systems were reviewed and negative except as indicated above. Physical Exam Physical Exam: CONSTITUTIONAL: obese, vitals as above, generally well- appearing, NAD EYES: normal conjunctivae, no scleral icterus ENT: external ear and nose normal, MMM, CPAP in place. NECK: trachea midline RESPIRATORY: clear to auscultation bilaterally, no crackles, rales or wheezes, normal respiratory effort CARDIOVASCULAR: regular rate and rhythm, S1 and 2 heard without murmurs, gallops or rubs, no JVD, no peripheral edema GASTROINTESTINAL: soft, nontender, ND, no guarding MUSCULOSKELETAL: strength 5/5 throughout, head is normocephalic and atraumatic SKIN: warm and dry, she was laying on her back and I was not able to assess the back wound. NEUROLOGIC: CN 2-12 grossly intact, no sensory deficit, normal cognition, normal speech, no tremor. No gross focal deficits. PSYCHIATRIC: alert cooperative and oriented to person, place and time. Results & Data Results & Data ([facility]) Vital Signs (Past 12 Hours) Vital Signs Temp Pulse Pulse Pulse Pulse Resp BP 03/21/21 14:20 37.3 C 81 16 03/21/21 13:46 37.2 C 78 18 03/21/21 13:24 77 20 03/21/21 13:21 37.2 C 80 18 03/21/21 13:14 77 21 03/21/21 13:11 79 22 03/21/21 12:55 76 19 03/21/21 12:45 36.5 C 87 19 03/21/21 12:35 83 22 03/21/21 12:25 80 19 03/21/21 12:15 85 20 03/21/21 12:05 83 24 03/21/21 11:57 36.1 C L 77 18 03/21/21 10:38 79 20 03/21/21 10:04 36.6 C 79 20 03/21/21 07:20 36.8 C 77 18 170/85 H BP Pulse Ox 03/21/21 14:20 168/92 H 97 03/21/21 13:46 149/84 H 98 03/21/21 13:24 97 03/21/21 13:21 158/86 H 97 03/21/21 13:14 98 03/21/21 13:11 161/83 H 95 03/21/21 12:55 162/86 H 94 03/21/21 12:45 155/80 H 96 03/21/21 12:35 163/91 H 100 03/21/21 12:25 170/90 H 92 03/21/21 12:15 179/88 H 94 03/21/21 12:05 200/91 H 94 03/21/21 11:57 211/117 H 77 L 03/21/21 10:38 89 L 03/21/21 10:04 159/73 H 95 03/21/21 07:20 97 Laboratory Results Short CBC 03/21/21 Range/Units 07:01 WBC 22.19 H (4.8-10.8) K/uL Hgb 12.0 (12.0-16.0) g/dL Hct 36.3 L (37-47) % Plt Count 351 (130-400) K/uL BMP 03/20/21 03/21/21 19:17 07:01 Sodium 130 L 128 L Potassium 4.6 4.0 Chloride 96 L 92 L Carbon Dioxide 27 27 BUN 11 9 Creatinine 0.53 L 0.50 L Glucose 150 H 127 H Calcium 8.6 9.3 Urine 03/21/21 Range/Units 01:15 Urine Color Yellow Urine Appearance Clear (Clear) Urine pH 6.0 (4.5-7.5) Ur Specific [place] 1.023 (1.000-1.030) Urine Protein 2+ H (Negative) Urine Glucose (UA) Negative (Negative) Medications Administered Current Inpatient Medications Acetaminophen (Acetaminophen 500 Mg Tab) 1,000 mg PO Q8H PRN PRN Reason: MILD Pain Scale 1,2,3 & Pre PT Stop: 04/19/21 00:00 Al Hydrox/Mg Hydrox/Simethicone (Aluminum/Magnesium Susp 30 Ml Udc) 30 ml PO Q6H PRN PRN Reason: Dyspepsia Stop: 04/19/21 00:00 Albuterol (Albuterol 0.083% Nebu Soln 3 Ml Vial) 2.5 mg INH Q4H PRN; Protocol PRN Reason: Shortness Of Breath Stop: 04/19/21 00:00 Last Admin: 03/21/21 10:34 Dose: 2.5 mg Documented by: Atropine Sulfate (Atropine Sulfate 0.1 Mg/Ml 10ml Syr) 0.5 mg IV Q1M PRN PRN Reason: PACU Use-HR<40 &/or Bradycardi Stop: 03/21/21 18:28 Bisacodyl (Bisacodyl 10 Mg Supp) 10 mg NE DAILY PRN PRN Reason: Constipation Stop: 04/20/21 19:29 Diazepam (Diazepam 5 Mg Tablet) 5 mg PO Q8 PRN PRN Reason: Breakthrough Pain Stop: 04/19/21 00:00 Last Admin: 03/20/21 19:36 Dose: 5 mg Documented by: Diphenhydramine HCl (Diphenhydramine Capsule 25 Mg Cap) 25 mg PO Q6H PRN PRN Reason: Allergic Rhinitis/Insomnia Stop: 04/19/21 00:00 Ephedrine Sulfate (Ephedrine Sulfate 50 Mg/Ml Amp) 5 mg IV Q5M PRN PRN Reason: PACU Use Only-SBP<90 mmHg Stop: 03/21/21 18:28 Famotidine (Famotidine 20 Mg Tab) 20 mg PO Q12H PRN PRN Reason: Dyspepsia Stop: 04/20/21 13:18 Fentanyl Citrate (Fentanyl Citrate 100 Mcg/2 Ml Vial) 50 mcg IV Q5M PRN PRN Reason: PACU Use Only-Pain Stop: 03/21/21 18:28 Hydromorphone HCl (Hydromorphone Inj 0.5 Mg/0.5 Ml Syr) 0.5 mg IV Q3H PRN PRN Reason: MOD pain (scale 4-6) & Pre PT Stop: 04/03/21 00:00 Hydromorphone HCl (Hydromorphone Inj 1 Mg/Ml Syringe) 1 mg IV Q3H PRN PRN Reason: severe pain (scale 7-10) Stop: 04/03/21 00:00 Last Admin: 03/21/21 01:07 Dose: 1 mg Documented by: Hydromorphone HCl (Hydromorphone Inj 2 Mg/Ml Syr/Vial) 0.5 mg IV Q5M PRN PRN Reason: PACU Use Only-Pain Stop: 03/21/21 18:28 Hydroxyzine HCl (Hydroxyzine Hcl 25 Mg Tab) 25 mg PO Q8H PRN PRN Reason: Anxiety Stop: 04/19/21 00:00 Lactated Ringer's (Lr) 1,000 mls @ 150 mls/hr IV .Q6H40M MARY Stop: 04/19/21 00:00 Last Admin: 03/21/21 14:21 Dose: 150 mls/hr Documented by: Promethazine HCl 12.5 mg/ (Sodium Chloride) 50.5 mls @ 202 mls/hr IV Q6H PRN PRN Reason: Nausea &/or Vomiting Stop: 04/19/21 00:00 Acetaminophen (Ofirmev) 1,000 mg in 100 mls @ 400 mls/hr IV Q8H PRN PRN Reason: Pain Rating 1-3 & Pre PT Stop: 03/23/21 00:00 Last Infusion: 03/21/21 04:01 Dose: Infused Documented by: Lorazepam (Ativan) 0.5 mg in 1 mls @ 1 mls/min IV Q8H PRN PRN Reason: Sedation/Anxiety Stop: 04/19/21 00:00 Cefazolin Sodium (Ancef 2000mg) 2,000 mg in 15 mls @ 3.75 mls/min IV Q8H MARY; Protocol Stop: 03/22/21 03:03 Influenza Virus Vaccine Quadrival (Do Not Administer Flu Vaccine) 1 ea N/A PRN PRN PRN Reason: Notification Stop: 04/20/21 13:18 Ketorolac Tromethamine (Ketorolac Tromethamine 15 Mg/Ml Vial) 15 mg IV Q6H [facility] Stop: 03/22/21 08:01 Last Admin: 03/21/21 14:21 Dose: 15 mg Documented by: Lorazepam (Lorazepam 0.5 Mg Tab) 0.5 mg PO Q8H PRN PRN Reason: sedation/anxiety Stop: 04/19/21 00:00 Magnesium Hydroxide (Magnesium Hydroxide Susp 30 Ml Udc) 30 ml PO Q24H PRN PRN Reason: Constipation Stop: 04/19/21 00:00 Metoclopramide HCl (Metoclopramide Hcl Inj 5 Mg/Ml 2 Ml Vial) 10 mg IV Q6H PRN PRN Reason: Nausea &/or Vomiting Stop: 04/19/21 00:00 Last Admin: 03/20/21 19:36 Dose: 10 mg Documented by: Miscellaneous (Remove Nicoderm Patch) 1 ea N/A DAILY@0859 [facility] Stop: 04/19/21 08:58 Last Admin: 03/21/21 07:28 Dose: 1 ea Documented by: Miscellaneous (Check Scopolamine Patch Placement) 1 ea N/A QS [facility] Stop: 03/24/21 05:59 Miscellaneous (Remove Transderm-Scop Patch) 1 ea N/A ONE ONE Stop: 03/24/21 06:01 Montelukast Sodium (Montelukast Sodium 10 Mg Tablet) 10 mg PO HS PRN PRN Reason: Allergy Symptoms Stop: 04/19/21 00:00 Naloxone HCl (Naloxone Hcl 0.4 Mg/1 Ml Vial/Carp) 0.1 mg IV Q5M PRN PRN Reason: Oversedation/respiratory dep Stop: 04/19/21 00:00 Nicotine (Nicotine 7 Mg/24 Hr Tdsy) 7 mg TD QAM MARY Stop: 04/21/21 08:59 Ondansetron HCl (Ondansetron Inj 2 Mg/Ml 2 Ml Vial) 4 mg IV Q6H PRN PRN Reason: Nausea &/or Vomiting Stop: 04/19/21 00:00 Last Admin: 03/20/21 06:01 Dose: 4 mg Documented by: Ondansetron HCl (Ondansetron 4 Mg Od Tab) 4 mg PO Q6H PRN PRN Reason: Nausea Stop: 04/19/21 00:00 Last Admin: 03/20/21 23:51 Dose: 4 mg Documented by: Ondansetron HCl (Ondansetron Inj 2 Mg/Ml 2 Ml Vial) 4 mg IV ONCE PRN PRN Reason: PACU Use Only-Nausea/Vomiting Stop: 03/21/21 18:28 Oxycodone HCl (Oxycodone Hcl Ir 5 Mg Tab (Immediate Release)) 5 - 10 mg PO Q4H PRN PRN Reason: mod to severe pain Stop: 04/03/21 00:00 Pneumococcal Polyvalent Vaccine (Do Not Administer Pneumococcal Vaccine) 1 ea N/A PRN PRN PRN Reason: Notification Stop: 04/20/21 13:18 Polyethylene Glycol (Polyethylene (Miralax) 17 Gm Pack) 17 gm PO Q6 MARY Stop: 04/21/21 05:59 Senna/Docusate Sodium (Docusate Sodium/Senna 50/8.6mg Tab) 2 tab PO HS MARY Stop: 04/20/21 20:59 Sodium Biphosphate/Sodium Phosphate (Sod Phosphate/Sod Biphosphate Enema 132 Ml Btl) 132 ml NE ONE PRN PRN Reason: Constipation Stop: 04/19/21 00:00 Tramadol HCl (Tramadol Hcl 50 Mg Tablet) 50 - 100 mg PO Q4H PRN PRN Reason: Moderate-Severe pain & Pre PT Stop: 02/01/22 00:00 Last Admin: 03/20/21 23:17 Dose: 100 mg Documented by: (1) Headache Headache type: other headache syndrome Qualified Code(s): G44.89 - Other headache syndrome
[2021-03-21] MEDS: CHECK SCOPOLAMINE PATCH PLACEMENT SCH (17:00)
[2021-03-21] MEDS: ceFAZolin 2000MG 2,000 MG/15 ML SYR IV SCH (17:41)
[2021-03-21 18:45] LABS: Creatinine Urine Random < 13.0 mg/dl; Sodium Random Urine 27 mmol/L
[2021-03-21] MEDS: DOCUSATE SODIUM/SENNA 50/8.6MG TAB PO SCH (19:32)
[2021-03-22] MEDS: ACETAMINOPHEN 500 MG TAB PO PRN ×2 (00:13→20:27)
[2021-03-22] MEDS: CHECK SCOPOLAMINE PATCH PLACEMENT SCH ×3 (00:14→17:09)
[2021-03-22] MEDS: LACTATED RINGER'S 1,000 ML IV SCH ×3 (02:06→15:23)
[2021-03-22] MEDS: KETOROLAC TROMETHAMINE 15 MG/ML VIAL IV SCH ×2 (02:09→09:11)
[2021-03-22] MEDS: ceFAZolin 2000MG 2,000 MG/15 ML SYR IV SCH (03:05)
[2021-03-22] MEDS: POLYETHYLENE (MIRALAX) 17 GM PACK PO SCH ×3 (06:27→17:36)
[2021-03-22 08:48] LABS: Basophils # (auto) 0.02 K/uL (0-0.2); Basophils % (auto) 0.1 %; Eosinophils # (auto) 0.14 K/uL (0-0.5); Eosinophils % (auto) 0.8 %; Hematocrit (blood only) 34.5 % (37-47); Hemoglobin 10.9 g/dL (12.0-16.0); Immature Granulocytes # (auto) 0.27 K/uL (0.00-0.02); Immature Granulocytes % (auto) 1.6 %; Lymphocytes # (auto) 3.06 K/uL (1.2-3.4); Lymphocytes % (auto) 17.9 %; Mean Corpuscular Hemoglobin 29.5 pg (25-34); Mean Corpuscular Hgb Conc 31.6 g/dL (32-36); Mean Corpuscular Volume 93.2 fL (80-100); Mean Platelet Volume 8.8 fL (7.4-10.4); Monocytes # (auto) 1.97 K/uL (0.11-0.59); Monocytes % (auto) 11.5 %; Neutrophils # (auto) 11.68 K/uL (1.4-6.5); Neutrophils % (auto) 68.1 %; Nucleated RBC # (auto) 0.02 K/uL (0-0); Nucleated RBC % (auto) 0.1 %; Platelet Count 409 K/uL (130-400); RDW Standard Deviation 44.5 fL (36.4-46.3); White Blood Count 17.14 K/uL (4.8-10.8)
[2021-03-22] MEDS: NICOTINE 7 MG/24 HR TDSY TD SCH (09:12)
[2021-03-22 09:22] LABS: BUN Creatinine Ratio 22.7 (10-20); Calcium 8.9 mg/dl (8.5-10.1); Creatinine Clr Calc Pharmacy 155.9 ml/min; Est GFR (African American) 121.4 ml/min; Est GFR (Non-African American) 104.8 ml/min; Potassium 3.9 mmol/L (3.5-5.1)
--- NOTE | 2021-03-22 13:52 | Orthopedic Progress Note ---
Date of Service March 22, 2021 Assessment & Plan (1) Cerebrospinal fluid leak: Plan: At this time we will request that she maintain bedrest today. She should lie flat between eating. If she is still comfortable tomorrow we may begin bed to chair transfers. Hopefully she will discharge home . Admission and Anticipated Discharge Date Admission Date: March 19, 2021 Subjective Patient's pain is markedly improved. She has no headaches. Denies any back or leg pain. Physical Exam Physical Exam: On exam she is sit up in bed. She has good strength testing lower extremities. Results & Data ([facility]) Vital Signs (Past 12 Hours) Vital Signs Temp Pulse Resp BP BP Pulse Ox 03/22/21 08:18 37.0 C 88 16 123/79 96 03/22/21 03:46 37.0 C 66 19 125/68 95
[2021-03-22 15:50] LABS: BUN Creatinine Ratio 24.6 (10-20); Calcium 8.4 mg/dl (8.5-10.1); Creatinine Clr Calc Pharmacy 153.5 ml/min; Est GFR (African American) 120.8 ml/min; Est GFR (Non-African American) 104.3 ml/min; Potassium 3.4 mmol/L (3.5-5.1)
[2021-03-22] MEDS ORDERED: POTASSIUM CHLORIDE CRTAB 20 MEQ TABCR PO ONE (16:32)
--- NOTE | 2021-03-22 16:50 | Hospitalist Progress Note ---
Date of Service March 22, 2021 Assessment & Plan (1) Headache: (2) Hx of spinal surgery: (3) Cerebrospinal fluid leak: Plan: S/p L4-S1 decompression and fusion on 03/15/2021 S/p surgery on 03/21 - intraoperatively a large amount of fluid consistent with blood-tinged seroma was identified and evacuated. It appears that there was a small bony spur that may have caused thinning and subsequent leak of the dura near the prior operative site. A DuraSeal was placed and no continuous CSF leak was noted. Patient continues to improve Continue management as per spine Ortho -maintain bedrest today and lie flat between eating (4) Sleep apnea: Plan: History of, however has been noncompliant with CPAP machine as an outpatient due to machine recall and difficulty getting scheduled with sleep medicine Patient requesting to establish with [facility] sleep medicine, appointment scheduled and placed in discharge instructions Patient does not like in-hospital CPAP machine. Nursing noted hypoxia with sleeping. Currently wearing 5 L however discussed with nursing and patient saturates well on room air while awake. Nocturnal pulse ox ordered (5) Hyponatremia: Plan: Na+ 128 --> 139 today Possibly secondary to dehydration and postoperative state with patient not feeling well. Given rapid correction, free water intake encouraged. Stop IVF Follow BMP in a.m. (6) Morbid obesity: Plan: BMI 45.7, lifestyle changes encouraged (7) DVT prophylaxis: Plan: TEDs/SCDs as per spine Ortho Dispo -pending, possible discharge home on 03/24 Admission and Anticipated Discharge Date Admission Date: March 19, 2021 Supervising Physician Co-Signing Physician Notes I have seen and examined the patient and have discussed the case with the provider above. I agree with the assessment and plan as stated. She is doing well postoperatively. My physical exam reflects that listed above. Agree wt plan as stated. [place], DO Subjective Patient seen and examined. Follow-up for headache, CSF leak. Patient reports minimal head and neck pain. Noted to be on 5L NC. Denies chest pain and shortness of breath. No documented hypoxia. Denies abdominal pain and nausea. No lightheadedness or dizziness. Review of Systems Review of Systems: ROS per HPI, all other systems reviewed and negative Physical Exam Constitutional: WD/WN, vitals as above + obese Respiratory: normal respiratory effort, lungs clear to auscultation Cardiovascular: Rate/Rhythm: regular rate and regular rhythm Vessels: normal peripheral pulses Extremities: no edema Gastrointestinal (Abdomen): Percussion/Palpation: abdomen soft; abdomen nontender Musculoskeletal: no cyanosis or clubbing, extremities motor strength 5/5 Skin: no rashes, warm and dry Neurologic: no focal motor deficits Psychiatric: A+Ox3, euthymic affect Results & Data Results & [facility]) Vital Signs (Past 12 Hours) Vital Signs Temp Pulse Resp BP Pulse Ox 03/22/21 14:44 36.6 C 76 18 157/79 H 92 03/22/21 08:18 37.0 C 88 16 123/79 96 Laboratory Results Short CBC 03/22/21 Range/Units 08:23 WBC 17.14 H (4.8-10.8) K/uL Hgb 10.9 L (12.0-16.0) g/dL Hct 34.5 L (37-47) % Plt Count 409 H (130-400) K/uL BMP 03/22/21 03/22/21 08:23 15:06 Sodium 139 D 141 Potassium 3.9 3.4 L Chloride 100 103 Carbon Dioxide 35 H 34 H BUN 15 D 16 Creatinine 0.64 0.65 Glucose 117 H 140 H Calcium 8.9 8.4 L (1) Headache Headache type: other headache syndrome Qualified Code(s): G44.89 - Other headache syndrome
[2021-03-22] MEDS ORDERED: guaiFENesin 600 MG TABCR PO PRN (18:37)
[2021-03-22] MEDS: DOCUSATE SODIUM/SENNA 50/8.6MG TAB PO SCH (20:24)
[2021-03-23] MEDS: CHECK SCOPOLAMINE PATCH PLACEMENT SCH ×4 (00:51→23:00)
[2021-03-23 06:21] LABS: Hematocrit (blood only) 35.5 % (37-47); Hemoglobin 11.3 g/dL (12.0-16.0); Mean Corpuscular Hemoglobin 29.9 pg (25-34); Mean Corpuscular Hgb Conc 31.8 g/dL (32-36); Mean Corpuscular Volume 93.9 fL (80-100); Mean Platelet Volume 8.6 fL (7.4-10.4); Platelet Count 431 K/uL (130-400); RDW Coefficient of Variation 13.2 % (11.5-14.5); RDW Standard Deviation 45.3 fL (36.4-46.3); Red Blood Count 3.78 M/uL (4.2-5.4); White Blood Count 17.87 K/uL (4.8-10.8)
[2021-03-23 07:04] LABS: BUN Creatinine Ratio 25.7 (10-20); Calcium 8.7 mg/dl (8.5-10.1); Creatinine Clr Calc Pharmacy 191.8 ml/min; Est GFR (Non-African American) 112.2 ml/min; Potassium 3.5 mmol/L (3.5-5.1)
[2021-03-23] MEDS: NICOTINE 7 MG/24 HR TDSY TD SCH (08:10)
--- NOTE | 2021-03-23 13:06 | Orthopedic Progress Note ---
Date of Service March 23, 2021 Assessment & Plan (1) Cerebrospinal fluid leak: Plan: At this time we will begin bed to chair transfers. I would ask her to limit her sitting to 30 minutes. I like to return to bed after that time. If she tolerates transfers and sitting today we may consider home tomorrow. Admission and Anticipated Discharge Date Admission Date: March 19, 2021 Subjective Patient's back pain and leg pain are controlled. She denies any headaches. She tolerated sitting up for meals yesterday without issue. Physical Exam Physical Exam: On exam she does appear comfortable. Is good strength testing. Results & Data ([facility]) Vital Signs (Past 12 Hours) Vital Signs Temp Pulse Pulse Resp BP BP Pulse Ox 03/23/21 07:22 37.5 C 89 16 155/77 H 94 03/23/21 06:15 93 H 03/23/21 02:40 72 03/23/21 01:10 143/72 H Pulse Ox 03/23/21 07:22 03/23/21 06:15 88 L 03/23/21 02:40 92 03/23/21 01:10
--- NOTE | 2021-03-23 15:10 | Hospitalist Progress Note ---
Date of Service March 23, 2021 Assessment & Plan (1) Headache: (2) Hx of spinal surgery: (3) Cerebrospinal fluid leak: Plan: S/p L4-S1 decompression and fusion on 03/15/2021 S/p surgery on 03/21 - intraoperatively a large amount of fluid consistent with blood-tinged seroma was identified and evacuated. It appears that there was a small bony spur that may have caused thinning and subsequent leak of the dura near the prior operative site. A DuraSeal was placed and no continuous CSF leak was noted. Patient continues to improve. Pain controlled with Tylenol. Continue management as per spine Ortho - begin bed to chair transfers and limit sitting to 30 minutes. Possible discharge home tomorrow. (4) Sleep apnea: Plan: History of, however has been noncompliant with CPAP machine as an outpatient due to machine recall and difficulty getting scheduled with sleep medicine Patient requesting to establish with [facility] sleep medicine, appointment scheduled and placed in discharge instructions Patient does not like in-hospital CPAP machine. Nursing noted hypoxia with sleeping. No hypoxia while awake. Nocturnal pulse ox completed last night confirms hypoxia. Will repeat test tonight on 2 L to confirm patient's nocturnal oxygen needs. (5) Hyponatremia: Plan: Na+ 128 --> 139 --> 141 --> 137 Possibly secondary to dehydration and postoperative state with patient not feeling well. Received IVF, free water intake encouraged. Follow BMP in a.m. (6) Morbid obesity: Plan: BMI 45.7, lifestyle changes encouraged (7) DVT prophylaxis: Plan: TEDs/SCDs as per spine Ortho Dispo -pending, possible discharge home tomorrow Admission and Anticipated Discharge Date Admission Date: March 19, 2021 Supervising Physician Co-Signing Physician Notes I have seen and examined the patient and have discussed the case with the provider above. I agree with the assessment and plan as stated. She is doing well postoperatively. My physical exam reflects that listed above. Agree wt plan as stated. [place], DO Subjective Patient seen and examined. Follow-up for medical management s/p back surgery and CSF leak. Patient reports feeling improved this morning. Minimal headache and neck pain present. Reports having diarrhea however this is a chronic issue for her. Denies abdominal pain or nausea. No chest pain or shortness of breath. Review of Systems Review of Systems: ROS per HPI, all other systems reviewed and negative Physical Exam Constitutional: WD/WN, vitals as above + obese Respiratory: normal respiratory effort, lungs clear to auscultation Cardiovascular: Rate/Rhythm: regular rate and regular rhythm Vessels: normal peripheral pulses Extremities: no edema Gastrointestinal (Abdomen): Percussion/Palpation: abdomen soft; abdomen nontender Musculoskeletal: no cyanosis or clubbing, extremities motor strength 5/5 Skin: no rashes, warm and dry Neurologic: no focal motor deficits Psychiatric: A+Ox3, euthymic affect Results & Data Results & Data ([facility]) Vital Signs (Past 12 Hours) Vital Signs Temp Pulse Pulse Resp BP Pulse Ox Pulse Ox 03/23/21 07:22 37.5 C 89 16 155/77 H 94 03/23/21 06:15 93 H 88 L Laboratory Results Short CBC 03/23/21 Range/Units 05:40 WBC 17.87 H (4.8-10.8) K/uL Hgb 11.3 L (12.0-16.0) g/dL Hct 35.5 L (37-47) % Plt Count 431 H (130-400) K/uL BMP 03/22/21 03/23/21 15:06 05:40 Sodium 141 137 Potassium 3.4 L 3.5 Chloride 103 102 Carbon Dioxide 34 H 29 BUN 16 13 Creatinine 0.65 0.52 L Glucose 140 H 93 Calcium 8.4 L 8.7 (1) Headache Headache type: other headache syndrome Qualified Code(s): G44.89 - Other headache syndrome
[2021-03-23] MEDS: DOCUSATE SODIUM/SENNA 50/8.6MG TAB PO SCH (20:32)
[2021-03-23] MEDS: ACETAMINOPHEN 500 MG TAB PO PRN (23:00)
[2021-03-24 06:10] LABS: Hematocrit (blood only) 38.8 % (37-47); Hemoglobin 12.5 g/dL (12.0-16.0); Mean Corpuscular Hemoglobin 29.9 pg (25-34); Mean Corpuscular Hgb Conc 32.2 g/dL (32-36); Mean Corpuscular Volume 92.8 fL (80-100); Mean Platelet Volume 8.5 fL (7.4-10.4); Platelet Count 478 K/uL (130-400); RDW Coefficient of Variation 13.4 % (11.5-14.5); RDW Standard Deviation 45.4 fL (36.4-46.3); Red Blood Count 4.18 M/uL (4.2-5.4); White Blood Count 19.93 K/uL (4.8-10.8)
[2021-03-24 06:41] LABS: BUN Creatinine Ratio 19.4 (10-20); Calcium 8.8 mg/dl (8.5-10.1); Creatinine Clr Calc Pharmacy 160.9 ml/min; Est GFR (African American) 122.7 ml/min; Est GFR (Non-African American) 105.9 ml/min; Potassium 3.3 mmol/L (3.5-5.1)
--- NOTE | 2021-03-24 08:32 | Discharge Summary ---
Date of Service March 24, 2021 Principal Diagnosis Postoperative CSF leak Discharge Data Allergies Allergy/AdvReac Type Severity Reaction Status Date / Time adhesive Allergy Mild Irritation Verified 03/21/21 10:02 with tape doxycycline AdvReac Intermediate dizziness, Verified 03/21/21 10:02 blurred vision Sulfa (Sulfonamide AdvReac Intermediate dizziness, Verified 03/21/21 10:02 Antibiotics) blurred vision Consultations 03/19/21 19:37 ED Decision to Admit Stat 03/20/21 00:01 Consult Internal Medicine Routine Procedures Performed Operation Date: 03/21/21 11:30 Actual Procedures p Repair of lumbar Durotomy - Alejandro Rice DO Hospital Course (1) Cerebrospinal fluid leak: Patient was admitted Sunday evening with severe headaches and pain. Despite 24 hours of bedrest she continued to demonstrate evidence of a CSF leak. Subsequently brought her to the OR emergently Sunday. Exploration revealed a small durotomy that was repaired. She then maintained bedrest for 24 hours and began bed to chair. She tolerated this well. Resolution of her headaches and pain. Socially discharged home. Discharge orders and instructions on the chart for review. Total Time Total Time Spent Total Time Spent (In Minutes): 20 minutes Discharge Plan Discharge Items Patient Disposition: Home - Self-Care Reason For Visit: POSSIBLE CSF LEAK Discharge Diagnosis: Postoperative CSF leak Activity: As commented below Non-emergency contact: Primary Care Provider Call non-emergency contact if: you have any medication questions Follow-up/Referrals: Mary Grace Oscar MD [Primary Care Provider] - Kandi Arevalo DO [Physician] - 03/29/21 8:40 am Diet: Regular Addtl Attending Provider Instructions: ACTIVITY RECOMMENDATIONS: SELF CARE INSTRUCTIONS AFTER THORACIC/LUMBAR FUSIONS 1. You may walk to your tolerance. It is good exercise for your legs and back. Expect some back and intermittent leg aches and pains. 2. You may perform "counter-top" level activities (make a sandwich, kamila with a project, etc.). 3. No bending or lifting of more than 10 pounds or back twisting of any nature (roll like a log when turning in bed). 4. You may ride in a car for 20-30 minutes at a time. No driving until after your first visit with your doctor. 5. Frequent changes of position and restricting sitting to 30 minutes at a time will help limit the amount of back spasms and stiffness you may experience. 6. You may discontinue the use of ambulatory aids (cane, crutches, etc.) once your strength and confidence allow. 7. You may manufacturing engineering technician the shower and let water strike your incision when you arrive home at least once daily. Do not take a tub bath, sit in a hot tub or go into a swimming pool until after your first recheck in the office. SPECIAL CARE INSTRUCTIONS: VERY IMPORTANT TO READ AND REVIEW A. Your surgical incision has been closed with a cosmetic suture under the skin that will dissolve in about 6 weeks. In 14 days, you can use a pair of clean scissors and cut the suture that is left outside of the skin at the ends of your incision. 1. The small skin tapes can be removed 7 days after surgery if they have not fallen off by that point. 2. You may keep the wound open to air as much as possible to promote healing after post-op day number 5 unless told otherwise by your doctor. 3. If you think the wound looks like it is becoming infected (redness or worsening drainage) and/or you are experiencing fever, chill or worsening back pain and muscle spasms, contact the office so that we may evaluate you as soon as possible. B. Complications are uncommon, but please contact us if you have any signs or symptoms of: 1. wound infection (fever higher than 102.5 degrees F, redness, separation of wound, drainage, or increasing pain from the incision) 2. blood clots in legs (pain, swelling, redness and warmth in legs) 3. urinary tract infection (fever higher than 102.5 degrees F, burning upon urination or increased frequency of urination) 4. nerve problems (inability to walk on your toes or heels, numbness, loss of bowel or bladder control) 5. any other symptoms that concern you C. Please call the office at if you have any concerns or questions about your operation or recovery. D. No smoking! Smoking drastically decreases the chance of a solid fusion. E. Do not take any anti-inflammatory medications (Indocin, Advil, Motrin, Aspirin, Naprosyn, etc.) as these may inhibit the chance of a solid fusion. Tylenol is okay to take for pain. MANAGING PAIN AFTER SPINAL SURGERY 1. Narcotic medication is intended for short-term use and will be provided for surgical pain. Surgical pain usually lasts for a period of 4-6 weeks. Narcotic medication includes Percocet, Vicodin, Darvocet, Tylenol #3 or Lortab. 2. Longer-term pain is more appropriately treated with non-narcotic medication such as Tylenol ES. 3. Muscle spasm is not appropriately treated with narcotics. Muscle relaxers such as Soma, Flexeril or Skelaxin can be used along with Tylenol ES. 4. Remember that we all live with some "aches and pains". This is not unusual or uncommon after an injury or as we get older. a. Back pain is expected and may include muscle spasms for 4 to 6 weeks after surgery. The pain should gradually improve. If the pain worsens for no apparent reason, please contact the office. b. Intermittent leg pain may also be experienced and should not be concerned about unless it worsens for no apparent reason. If so, please contact the office. 5. We will provide appropriate medication within the normal guidelines of their prescribed use. We will also be very cautious and aware of potential abuse and extended duration of patients' medication needs. a. Pain medications are for your comfort and to assist with sleep and rest so that the tissue can heal. They are not provided in order to return to normal activity and should not be used through the day. To do so or worsening pain at night can result from ongoing tissue damage and d evelopment of tolerance to the prescribed medicine. 6. Please allow 2-3 days to process refills. Prescriptions will not be mailed but must be picked up at the office. FOLLOW UP VISIT: Keep your scheduled follow-up appointment. Any questions, please call the office at . Addtl [employer] Provider Instructions: Appointment has been made for you with [facility] [address] sleep medicine to establish care for CPAP follow up. Pending Studies at Discharge: No Stand-Alone Forms: My Works[employer], Smoking Cessation Medications and DC Order Prescriptions: Continued (DME) Auto Titrating CPAP Misc See Rx Instructions .Route Qty: 1 RF: 0 montelukast [Singulair] 10 mg Tablet 10 mg PO HS PRN (Reason: Allergy Symptoms) RF: 0 albuterol sulfate 2.5 mg /3 mL (0.083 %) Solution For Nebulization 2.5 mg INHALATION Q4H PRN (Reason: Shortness Of Breath) RF: 0 albuterol 90 mcg/actuation Aerosol 90 mcg INHALATION DIRECTED RF: 0 oxycodone 5 mg tablet 5 mg PO Q6H PRN (Reason: pain, severe) Qty: 30 RF: 0 tramadol 50 mg tablet 50 mg PO Q6H PRN (Reason: pain, moderate) Qty: 30 RF: 0 nicotine 7 mg/24 hr Patch 24 Hour 7 mg transdermal QAM Qty: 14 RF: 0 acetaminophen [Tylenol Extra Strength] 500 mg Tablet 1,500 mg PO Q8 PRN (Reason: Pain) RF: 0 Discharge Orders: Discharge Order (Routine); Ordered 03/24/21 Ordered By: Alejandro Rice Admission Data Admit Date/Time: 03/19/21 19:35 Attending Provider: Alejandro Rice Admit Provider: Alejandro Rice Primary Care Provider: Mary Grace Oscar Other Providers: Alejandro Rice ; Daisy Jeff ; [facility]
[2021-03-24] MEDS: NICOTINE 7 MG/24 HR TDSY TD SCH (09:13)
--- NOTE | 2021-03-25 13:24 | Communication Note ---
Date of Service: March 25, 2021 Notably pulse oximetry report overnight did not include what amount of oxygen was needed to bring her out of hypoxic range. Therefore, she was given 2LPM via nasal canula to start and should follow-up with primary care provider to monitor this. Referral to sleep medicine also recommended. DO Tomer cc: Mary Grace Oscar (PCP)
--- NOTE | 2021-04-01 11:36 | Coding Query ---
CODING QUERY To promote full compliance with coding requirements relating to patient care, provider participation is requested in all cases of java mobile developer uncertainty. Please assist us with the question(s) below: Coding Question(s): 1. There is documentation in the record of CSF Leak, Postoperative CSF Leak and Lumbar Durotomy as well as documentation of recent spinal surgery, with documentation on the Op Report of , "Upon exploration I was able to identify an area along the shoulder over the right L4 nerve root that has evidence of a durotomy. This was up under the lamina. To access this region had perform a small revision laminotomy of L3 to adequately expose the dural deficit. It appears that a small bony spur may have caused the thinning and subsequent leak of the dura". Please specify below, in your clinical opinion. (x ) CSF leak caused by Lumbar Durotomy. Please specify further below: ( x ) this is likely a Postoperative Complication ( ) this is likely an Intraoperative Complication ( ) this is NOT a complication related to the surgery and is due to small bony spur that caused it and not related to the surgery ( ) Other: Please Specify ( ) CSF leak, not a Durotomy. Please specify further below: ( ) this is likely a Postoperative Complication ( ) this is likely an Intraoperative Complication ( ) this is NOT a complication related to the surgery and is due to small bony spur that caused it and not related to the surgery ( ) Other: Please Specify ( ) Other: Please Specify 2. There is documentation of blood-tinged seroma on the Op Report that was evacuated. Please specify below, regarding blood-tinged seroma. ( ) this is likely a Postoperative Complication ( ) this is likely an Intraoperative Complication ( x) this is NOT a complication related to the surgery and is due to small bony spur that caused it and not related to the surgery ( ) Other: Please Specify Physician's Response(s): Thank you Consuelo Ferrell Principal Diagnosis: "that condition established after study, to be chiefly responsible for occasioning the admission of the patient to the hospital for care." Co-Existing Principal Diagnosis: "when two or more diagnoses equally meet the criteria for principal diagnosis as determined by the circumstances of admission, diagnostic work up, and/or therapy provided, and the Alphabetic Index, Tabular List, or another coding guideline does not provide sequencing direction, any one of the diagnoses may be sequenced first." "When the physician has documented what appears to be a current diagnosis in the body of the record, but has not included the diagnosis in the final diagnostic statement, the physician should be asked whether the diagnosis should be added." ([facility] 2 QTR90. p3-4) [facility]
== END 2021-03-24 10:49 | disposition home health service (06) | DRG 29 ==
LOC: ED 18:41 → 3E 19:35